=== PATIENT | male | born 1975 | race Caucasian/White ===

== ENCOUNTER 2016-08-04 00:33 | Emergency (ER) | payer OTHER ==
[~2016-08-04] VITALS: Ht 177.8 cm; Wt 113.4 kg
[~2016-08-04 00:33] MED LIST: AMOXICILLIN875 M1 PO; PERCOCET 5-3251 EACH PO; TYLENOL EXTRA500 M2 PO
--- NOTE | 2016-08-04 00:54 | ED CARDIAC/CP/PALPITATIONS ---
History of Present Illness General Chief Complaint: Chest Pain Stated Complaint: "PER PT CHEST PRESSURE & PAIN Source: patient, old records Exam Limitations: no limitations Vital Signs & Intake/Output Vital Signs & Intake/Output Vital Signs Date Time Temp Pulse Resp B/P B/P Pulse O2 O2 Flow FiO2 Mean Ox Delivery Rate 08/04 0244 96.4 52 18 143/78 08/04 0052 98.2 64 18 146/95 98 Room Air Allergies Coded Allergies: NSAIDS (Non-Steroidal Anti-Inflamma (R/T GASTYRIC BYPASS SX 07/23/15) cefaclor (From CECLOR) (ANAPHYLAXIS 07/23/15) Reconcile Medications Acetaminophen (Tylenol Extra Strength) 500 MG TABLET 2 TAB PO Q2H PRN PAIN ( Reported) Amoxicillin 875 MG TABLET 1 TAB PO BID dental caries Oxycodone HCl/Acetaminophen (Percocet 5-325 MG Tablet) 1 EACH TABLET 1-2 TAB PO Q6P PRN pain Triage Note: PT TO ED C/O L CHEST WALL PAIN THAT RADIATES UNDERNEATH LEFT BREAST. PT STATES S/S STARTED WITH INDIGESTION, HAD ACID REFLUX WITH RELIEVED FULLY WHEN TAKING TUMS. PT FATHER HAD A MASSIVE ME AT 47 WITH SIMILAR S/S. WANTED TO COME AND GET CHECKED OUT. PT STATES PAIN IS INTERMITTENT SINCE THIS AFTERNOON. Triage Nurses Notes Reviewed? yes Onset: Evening Duration: hour(s):, constant, continues in ED Timing: recent history Quality/Severity: moderate, agita Location: epigastric Radiation: substernal Activities at Onset: none Prior Chest Pain/Card Workup: no prior chest pain Modifying Factors: Improves With: antacids. Nitro Today/Relief: no nitro taken today Aspirin Today: no aspirin today Associated Symptoms: abdominal pain, heartburn, nausea/vomiting HPI: 6 hours prior to admission patient complains of indigestion with nausea improved with Tums associated with retching now radiating to left chest he denies fever chills diarrhea shortness of breath headache dysuria rash bleeding. Past History Travel History Traveled to [place] past 21 day No Medical History Any Pertinent Medical History? see below for history Respiratory: bronchitis Gastrointestinal: GASTRIC BYPASS SX Endocrine: diabetes Surgical History Surgical History: non-contributory Psychosocial History What is your primary language Guyanese Tobacco Use: Current Daily Use Daily Tobacco Use Amount/Type: => 5 Cigarettes daily Family History Hx Contributory? No Review of Systems Review of Systems Constitutional: Reports: no symptoms. EENTM: Reports: no symptoms. Respiratory: Reports: no symptoms. Cardiovascular: Reports: see HPI, chest pain. GI: Reports: see HPI, abdominal pain, nausea. Genitourinary: Reports: no symptoms. Musculoskeletal: Reports: no symptoms. Skin: Reports: no symptoms. Neurological/Psychological: Reports: no symptoms. Hematologic/Endocrine: Reports: no symptoms. Immunologic/Allergic: Reports: no symptoms. All Other Systems: Reviewed and Negative Physical Exam Physical Exam General Appearance: well developed/nourished, alert, awake, anxious, mild distress, obese Head: atraumatic, normal appearance Eyes: Bilateral: normal appearance, PERRL, EOMI. Ears, Nose, Throat: normal pharynx, normal ENT inspection Neck: normal inspection, supple, full range of motion, no midline tenderness Respiratory: normal breath sounds, chest non-tender, no respiratory distress, quiet respiration, lungs clear Cardiovascular: regular rate/rhythm, normal peripheral pulses, norml femoral pulses equa Peripheral Pulses: 4+ carotid (R), 4+ carotid (L) Gastrointestinal: normal bowel sounds, soft, non-tender, no organomegaly Back: normal inspection, normal range of motion, no vertebral tenderness Extremities: normal inspection, normal capillary refill, normal range of motion, no edema Neurologic/Psych: no motor/sensory deficits, awake, alert, oriented x 3, normal gait, normal mood/affect, dietary manager II-XII nml as tested Reflexes: 2+: bicep (R), bicep (L). Skin: intact, normal color, warm/dry Lymphatic: no anterior cervical rafal Core Measures ACS in differential dx? Yes ASA ordered for poss ACS? No-ACS ruled out Severe Sepsis Present: No Septic Shock Present: No Progress Differential Diagnosis: AMI, musculoskeletal pain, pancreatitis, pneumonia Plan of Care: Orders Procedure Date/time Status TROPONIN LEVEL 08/04 0052 Complete LIPASE 08/04 0052 Complete COMPREHENSIVE METABOLIC PANEL 08/04 0052 Complete CBC WITHOUT DIFFERENTIAL 08/04 005 Complete EKG 08/04 0037 Active Laboratory Tests 08/04/16 0100: Anion Gap 11, Estimated GFR > 60, BUN/Creatinine Ratio 12.2, Glucose 85, Calcium 9.1, Total Bilirubin 0.5, AST 16 L, ALT 33, Alkaline Phosphatase 60, Troponin I < 0.01, Total Protein 6.5, Albumin 3.8, Globulin 2.7, Albumin/Globulin Ratio 1.4 , Lipase 125, CBC w Diff NO MAN DIFF REQ, RBC 5.41, MCV 76.6 L, MCH 24.5 L, RDW 30.2 H, MPV 8.0, Gran % 53.1, Lymphocytes % 31.6, Monocytes % 7.7, Eosinophils % 6.7 H, Basophils % 0.9, Absolute Granulocytes 4.1, Absolute Lymphocytes 2.5, Absolute Monocytes 0.6, Absolute Eosinophils 0.5, Absolute Basophils 0.1, PUBS MCHC 32.1 L Diagnostic Imaging: Viewed by Me: Radiology Read, CT Scan. Discussed w/RAD: Radiology Read, CT Scan. Radiology Impression: Normal CTA of the chest. Previously seen mediastinal prominence corresponds to tortuous normal caliber vasculature and prominent fat within the upper mediastinum. CXR Impression: no infiltrates, widened mediastinum Initial ED EKG: normal axis, normal intervals, normal p-waves, normal QRS complex, normal sinus rhythm, no ST T wave changes Prior EKG: unchanged Rhythm Strip: normal sinus rhythm Departure Departure Time of Disposition: 507 Disposition: HOME OR SELF CARE Condition: Stable Clinical Impression Primary Impression: Chest pain syndrome Referrals: PATIENT HAS NO PRIMARY CARE DR (PCP/Family) Departure Forms: Customer Survey General Discharge Information Critical Care Note Critical Care Note Critical Care Time: non-applicable
[2016-08-04 01:10] LABS: ABSOLUTE BASOPHIL COUNT 0.1 /CUMM (0.0-0.2); ABSOLUTE EOSINOPHIL COUNT 0.5 /CUMM (0.0-0.7); ABSOLUTE GRANULOCYTE CT 4.1 /CUMM (1.4-6.5); ABSOLUTE LYMPH COUNT 2.5 /CUMM (1.2-3.4); ABSOLUTE MONOCYTE COUNT 0.6 /CUMM (0.10-0.60); BASOPHIL % 0.9 % (0.0-2.0); EOSINOPHIL % 6.7 % (0-5); GRANULOCYTE % 53.1 % (42.2-75.2); HEMATOCRIT 41.4 % (42-52); MEAN CORPUSCULAR HGB 24.5 PG (27.0-31.0); MEAN CORPUSCULAR HGB CONC 32.1 G/DL (33.0-37.0); MEAN CORPUSCULAR VOLUME 76.6 FL (80.0-94.0); PLATELET COUNT 265 /CUMM (130-400); RBC DISTRIBUTION WIDTH 30.2 % (11.5-14.5); RED BLOOD CELL CT 5.41 /CUMM (4.70-6.10); WHITE BLOOD CELL COUNT 7.8 /CUMM (4.8-10.8)
--- NOTE | 2016-08-04 01:17 | RADIOLOGY REPORT ---
EXAMINATION: XR PORTABLE CHEST CLINICAL INFORMATION: Chest pain. COMPARISON: Right shoulder radiographs March 06, 2013. TECHNIQUE: Portable frontal view of the chest was obtained. FINDINGS: Symmetric lung inflation. There is no focal consolidation, pleural effusion, or pneumothorax. Upper mediastinum is prominent in size and should be followed with a chest CT with contrast to exclude acute mediastinal pathology. There are no acute osseous findings. IMPRESSION: Upper mediastinum is prominent in size and should be followed with a chest CT with contrast to exclude acute mediastinal pathology. The lungs are clear.
--- NOTE | 2016-08-04 02:47 | CT SCAN REPORT ---
CTA OF THE CHEST, INDICATION: Widened mediastinum on chest x-ray x-ray to assess for mediastinal pathology/dissection. COMPARISON: Chest x-ray performed earlier today. TECHNIQUE: A multidetector CTA acquisition of the chest is obtained following the administration of 140 of Optiray 350 without complication. 3-D postprocessing including the acquisition of multiplanar MIP reformats were acquired at the technologist workstation and utilized for image interpretation. FINDINGS: The thoracic aorta is normal in caliber. There is no evidence of arterial dissection. There is no dense intramural hematoma on the noncontrast series. There are no central pulmonary emboli. There is no focal consolidation, pleural effusion, or pneumothorax. The heart is normal in size without evidence of a pericardial effusion. There are borderline enlarged lymph nodes within the anterior mediastinum in the right paratracheal region that are nonspecific. No significant soft tissue findings within the chest. There are postoperative changes along the distal esophagus and partially imaged stomach. Gallbladder surgically absent. Remainder of the partially imaged upper abdomen is unremarkable. No acute osseous abnormalities. IMPRESSION: Normal CTA of the chest. Previously seen mediastinal prominence corresponds to tortuous normal caliber vasculature and prominent fat within the upper mediastinum.
[2016-08-04 05:17] VITALS: BP 139/76
== END 2016-08-04 05:17 ==
LOC: ERH 00:33
PROVIDERS: Emergency Medicine
DX: R07.1 Chest pain on breathing (principal)
CPT/HCPCS: 93005; 93010; 96374; 96375; J2765

== ENCOUNTER 2017-08-04 02:00 | Inpatient (IN) | payer OTHER ==
[~2017-08-04] VITALS: Ht 170.2 cm; Wt 119.4 kg
--- NOTE | 2017-08-04 02:10 | ED DYSPNEA/ASTHMA COMPLAINT ---
See Addendum History of Present Illness General Chief Complaint: General Adult Stated Complaint: DIFF BREATHING ? CHEMICAL INGESTION Source: patient Exam Limitations: no limitations Vital Signs & Intake/Output Vital Signs & Intake/Output Vital Signs Date Time Temp Pulse Resp B/P B/P Pulse O2 O2 Flow FiO2 Mean Ox Delivery Rate 08/04 0749 98.0 68 18 123/68 95 Room Air 08/04 0420 98.4 68 18 159/90 96 Room Air 08/04 0231 98 08/04 0215 97 Room Air 08/04 0208 98.4 74 18 180/86 97 Room Air Allergies Coded Allergies: NSAIDS (Non-Steroidal Anti-Inflamma (R/T GASTYRIC BYPASS SX 07/23/15) cefaclor (From CECLOR) (ANAPHYLAXIS 07/23/15) Reconcile Medications Acetaminophen (Tylenol Extra Strength) 500 MG TABLET 2 TAB PO Q8 PRN PAIN ( Reported) Epinephrine (Epipen 2-Jax) 0.3 MG/0.3 ML AUTO.INJCT 1 INJ IM X1 PRN SEVERE ALLERGIC REACTION AND CALL 911 Hydroxyzine HCl (hydrOXYzine HCl) 50 MG TABLET 1 TAB PO TID PRN ALLERGIC REACTION Methylprednisolone. (Medrol) 4 MG TAB.DS.PK 1 DP PO AD allergic reaction 6 on day 1 then reduce by one tablet daily until gone Omeprazole 40 MG CAPSULE. 1 CAP PO DAILY GERD (Reported) Triage Nurses Notes Reviewed? yes Onset: Abrupt Duration: hour(s): Timing: recent history Severity: moderate Activities at Onset: none Prior Episodes/Possible Cause: no prior episodes HPI: 41 yo gentleman, h/o gastric bypass, presents with cough, dyspnea, and hives. He shares that he took a single dose packet of advil PM, and a few minutes later developed dyspnea, wheeze, and hives at approximately 1:20am. He notes that the tylenol PM was in the pocket of his shorts. His shorts had recently been washed by industrial strength communication electronic technician. "I think I ingested some pretty bad stuff." He notes also diffuse mid epigastric burning type dyscomfort. He notes that he has had asthma, "where I was almost intubated before." He is otherwise well. (Natalie CHESTER,Dexter Brewer) Past History Travel History Traveled to [place] past 21 day No Medical History Any Pertinent Medical History? see below for history Respiratory: bronchitis Gastrointestinal: GASTRIC BYPASS SX Endocrine: diabetes Surgical History Surgical History: non-contributory Psychosocial History What is your primary language Luxembourger Tobacco Use: Current Daily Use Daily Tobacco Use Amount/Type: => 5 Cigarettes daily ETOH Use: occasional use Illicit Drug Use: denies illicit drug use Family History Hx Contributory? No (Natalie CHESTER,Dexter Brewer) Review of Systems Review of Systems Constitutional: Reports: no symptoms. EENTM: Reports: no symptoms. Respiratory: Reports: no symptoms. Cardiovascular: Reports: no symptoms. GI: Reports: no symptoms. Genitourinary: Reports: no symptoms. Musculoskeletal: Reports: no symptoms. Skin: Reports: no symptoms. Neurological/Psychological: Reports: no symptoms. Hematologic/Endocrine: Reports: no symptoms. Immunologic/Allergic: Reports: no symptoms. All Other Systems: Reviewed and Negative (Natalie CHESTER,Dexter Brewer) Physical Exam Physical Exam General Appearance: well developed/nourished, moderate distress Head: atraumatic, normal appearance Eyes: Bilateral: normal appearance. Ears, Nose, Throat: normal pharynx, normal ENT inspection Neck: normal inspection, supple, full range of motion Respiratory: normal breath sounds, wheezing, respiratory distress Cardiovascular: regular rate/rhythm Gastrointestinal: normal bowel sounds, no organomegaly, mid epigastric tenderness to palpation. Extremities: normal inspection, normal capillary refill Neurologic/Psych: no motor/sensory deficits, awake, alert, oriented x 3, normal gait Skin: diffuse urticaria Core Measures ACS in differential dx? No CVA/TIA Diagnosis No Sepsis Present: No Sepsis Focused Exam Completed? No (Natalie CHESTER,Dexter Brewer) Progress Differential Diagnosis: asthma, bronchitis, allergic reaction vs other. Plan of Care: Orders Procedure Date/time Status Nothing by Mouth 08/04 D Active Clear Liquid Diet 08/[address] in observation 08/04 1135 Active ED Holding Orders 08/04 1135 Active Vital Signs 08/04 1135 Active Code Status 08/04 1135 Active Add-on Test (ER Only) 08/04 0933 Active CREATINE PHOSPHOKINASE 08/04 0914 Complete TROPONIN LEVEL 08/04 09 Complete LIPASE 08/04 09 Complete HEPATIC FUNCTION PANEL 08/04 09 Complete CBC WITHOUT DIFFERENTIAL 08/04 09 Complete BASIC METABOLIC PANEL 08/04 0900 Complete AMYLASE 08/04 0900 Complete EKG 08/04 899 Active Add-on Test (ER Only) 08/04 07 Active URINALYSIS 08/04 556 Complete ACETOMINOPHEN 08/04 429 Complete SALICYLATE 08/04 429 Complete TROPONIN LEVEL 08/04 214 Complete LIPASE 08/04 214 Complete HEPATIC FUNCTION PANEL 08/04 214 Complete CBC WITHOUT DIFFERENTIAL 08/04 214 Complete BASIC METABOLIC PANEL 08/04 214 Complete AMYLASE 08/04 214 Complete EKG 08/04 214 Active Current Medications Sig/Jordon Start time Last Medication Dose Stop Time Status Admin Diphenhydramine HCl 50 MG ONCE ONE 08/04 414 CAN (Benadryl) 08/05 415 Acetaminophen 0 .STK-MED ONE 08/04 412 CAN (Ofirmev) Laboratory Tests 08/04/17926: Urinalysis HEAVY H, Urine Color BROWN H, Urine Clarity CLDY H, Urine pH 7.0, Ur Specific Superior 1.020, Urine Protein >=300 H, Urine Ketones TRACE H, Urine Nitrite POS H, Urine Bilirubin NEG@ICTO, Urine Urobilinogen 2.0 H, Ur Leukocyte Esterase TRACE H, Ur Microscopic SEDIMENT EXAMINED, Urine WBC 1-3 H, Ur Epithelial Cells MOD H, Urine Bacteria RARE H, Granular Casts FEW H, Urine Mucus FEW, Micro UA Comment MORE INFO: H, Urine Hemoglobin LARGE H, Urine Glucose 100 H 08/04/17913: Anion Gap 11, Estimated GFR 48 L, BUN/Creatinine Ratio 15.0, Glucose 154 H, Calcium 7.7 L, Total Bilirubin 2.0 H, Direct Bilirubin 0.6 H, AST 82 H, ALT 42, Alkaline Phosphatase 42, Creatine Kinase 96, Troponin I < 0.01, Total Protein 5.8 L, Albumin 3.3 L, Amylase 106, Lipase 522 H, CBC w Diff NO MAN DIFF REQ, RBC 4.30 L, MCV 91.7, MCH 31.0, MCHC 33.8, RDW 13.5, MPV 7.9, Gran % 93.1 H, Lymphocytes % 4.2 L, Monocytes % 2.7, Eosinophils % 0, Basophils % 0, Absolute Granulocytes 13.8 H, Absolute Lymphocytes 0.6 L, Absolute Monocytes 0.4, Absolute Eosinophils 0, Absolute Basophils 0 08/04/17429: Anion Gap 11, Estimated GFR > 60, BUN/Creatinine Ratio 16.7, Glucose 150 H, Calcium 8.5, Total Bilirubin 4.2 H, Direct Bilirubin 1.6 H, AST 86 H, ALT 38, Alkaline Phosphatase 50, Troponin I 0.01, Total Protein 6.5, Albumin 3.8, Amylase 176 H, Lipase 1577 H, Salicylates < 1.0, Acetaminophen < 10.0 L 08/04/17301: CBC w Diff NO MAN DIFF REQ, RBC 4.94, MCV 92.3, MCH 31.1 H, MCHC 33.7, RDW 14.1 , MPV 8.0, Gran % 65.0, Lymphocytes % 28.7, Monocytes % 3.1, Eosinophils % 3.1, Basophils % 0.1, Absolute Granulocytes 7.8 H, Absolute Lymphocytes 3.4, Absolute Monocytes 0.4, Absolute Eosinophils 0.4, Absolute Basophils 0 Diagnostic Imaging: Viewed by Me: Radiology Read, CT Scan. Discussed w/RAD: Radiology Read, CT Scan. Radiology Impression: PATIENT: MARTIN FOX JR PRESENT AGE: 41 PATIENT ACCOUNT NO: [id number] : 74 LOCATION: [facility] ORDERING PHYSICIAN: Dexter Estrada MD SERVICE DATE: 08/04/17 EXAM TYPE: RAD - XRY-PORTABLE CHEST XRAY EXAMINATION: XR PORTABLE CHEST CLINICAL INFORMATION: Dyspnea. COMPARISON: None TECHNIQUE: Portable frontal view of the chest was obtained. 2:27 AM FINDINGS: No significant abnormality is noted involving the heart, lungs, mediastinum, bony thorax or soft tissues. IMPRESSION : Unremarkable examination. DICTATED BY: David Zamora MD DATE/TIME DICTATED:256 MEAT PROCESS WORKER:GEENA DATE/TIME TRANSCRIBED:08/04/17256 CONFIDENTIAL, DO NOT COPY WITHOUT APPROPRIATE AUTHORIZATION. <Electronically signed in Other Vendor System> SIGNED BY: David Zamora MD 08/04/17300, PATIENT: MARTIN FOX JR PRESENT AGE: 41 PATIENT ACCOUNT NO: [id number] : 74 LOCATION: ER ORDERING PHYSICIAN: Dexter Estrada MD SERVICE DATE: 08/04/17 EXAM TYPE: CAT - CT ABD & PELVIS W/ O IV CONTRAS EXAMINATION: CT ABDOMEN AND PELVIS WITHOUT CONTRAST CLINICAL INFORMATION: Mid epigastric pain. COMPARISON: None TECHNIQUE: Multidetector volumetric imaging was performed from the superior aspect of the liver through the pubic symphysis. Sagittal and coronal reformatted images were obtained on the technologist's workstation. DLP: 1517.87 mGy-cm FINDINGS: LUNG BASES: The visualized lung bases are unremarkable. LIVER, GALLBLADDER, AND BILIARY TREE: The liver is normal in size, shape, and attenuation. No focal hepatic lesion or biliary ductal dilatation is present. Status post cholecystectomy. No bile duct dilatation. PANCREAS: Unremarkable. SPLEEN: Unremarkable. ADRENAL GLANDS: Unremarkable. KIDNEYS AND URETERS: The kidneys are normal in size, shape, and attenuation. No hydronephrosis, hydroureter, or calculi seen. No perinephric stranding. BLADDER: Unremarkable. GASTROINTESTINAL TRACT: Small hiatal hernia. Status post gastric bypass surgery with surgical sutures of the stomach and proximal small bowel loops. No abnormally dilated bowel. No bowel obstruction. No bowel wall thickening or edema. The appendix is normal. Scattered stool in the colon. There are scattered diverticula of the left colon and sigmoid but no diverticulitis. ABDOMINAL WALL: Small fat-containing umbilical hernia. LYMPH NODES: Normal. VASCULAR: Unremarkable. PELVIC VISCERA: Unremarkable. OSSEOUS STRUCTURES: Unremarkable. IMPRESSION: No acute abnormality CT scan abdomen and pelvis. DICTATED BY: David Zamora MD DATE/TIME DICTATED:08/04/17335 MEAT PROCESS WORKER:GEENA DATE/TIME TRANSCRIBED:08/04/17335 CONFIDENTIAL, DO NOT COPY WITHOUT APPROPRIATE AUTHORIZATION. <Electronically signed in Other Vendor System> SIGNED BY: David Zamora MD 08/04/17 034 Initial ED EKG: nsr, no acute changes Hand-Off Endorsed To: Monster Ramirez DO Endorsed Time: 0700 Pending: other (clinical condition) (Natalie CHESTER,Dexter Brewer) Departure Departure Disposition: HOME OR SELF CARE Condition: Stable Clinical Impression Primary Impression: Allergic reaction Secondary Impressions: Abdominal pain, Pancreatitis Referrals: Patient Has No Primary Care Dr Departure Forms: Customer Survey General Discharge Information Prescriptions: Current Visit Scripts Methylprednisolone. (Medrol) 1 DP PO AD #1 DP 6 on day 1 then reduce by one tablet daily until gone Hydroxyzine HCl (hydrOXYzine HCl) 1 TAB PO TID PRN ALLERGIC REACTION #60 TAB Ref 1 Epinephrine (Epipen 2-Jax) 1 INJ IM X1 PRN SEVERE ALLERGIC REACTION #1 KIT AND CALL 911 Comments 08/04/17, 4:08AM....discussed with poison control... .the detergent in the washing machine appears generally safe. 08/04/17, 5:56am... discussed at length with patient... he reports feeling better... elevated lipase noted, ct scan benign... pt does not wish to be admitted... he would prefer to rest in ED for some more time... will give 2 liter fluid bolus, then repeat labs and reassess. Pt to be signed out to dr. ramirez, 7am. (Natalie CHESTER,Dexter Brewer) Observation Note Spoke With: Elijah Bonilla MD Physician Advisor Notified: MONSTER RAMIREZ DO Place Patient In: Non-ED OBS Care Area Rationale for Observation: My rational for observation is as follows [IV fluids, repeat bilirubin and lipase, GI consultation]. (Monster Ramirez DO) Critical Care Note Critical Care Note Critical Care Time: non-applicable (Natalie CHESTER,Dexter Brewer) 08/04/17, 5:56am... discussed at length with patient... he reports feeling better... elevated lipase noted, ct scan benign... pt does not wish to be admitted... he would prefer to rest in ED for some more time... will give 2 liter fluid bolus, then repeat labs and reassess. Pt to be signed out to dr. ramirez, 7am. Critical Care Note Critical Care Note Critical Care Time: non-applicable
--- NOTE | 2017-08-04 03:01 | RADIOLOGY REPORT ---
EXAMINATION: XR PORTABLE CHEST CLINICAL INFORMATION: Dyspnea. COMPARISON: None TECHNIQUE: Portable frontal view of the chest was obtained. 2:27 AM FINDINGS: No significant abnormality is noted involving the heart, lungs, mediastinum, bony thorax or soft tissues. IMPRESSION: Unremarkable examination.
[2017-08-04 03:39] LABS: ABSOLUTE BASOPHIL COUNT 0 /CUMM (0.0-0.2); ABSOLUTE EOSINOPHIL COUNT 0.4 /CUMM (0.0-0.7); ABSOLUTE GRANULOCYTE CT 7.8 /CUMM (1.4-6.5); ABSOLUTE LYMPH COUNT 3.4 /CUMM (1.2-3.4); ABSOLUTE MONOCYTE COUNT 0.4 /CUMM (0.10-0.60); BASOPHIL % 0.1 % (0.0-2.0); EOSINOPHIL % 3.1 % (0-5); HEMATOCRIT 45.6 % (42-52); MEAN CORPUSCULAR HGB 31.1 PG (27.0-31.0); MEAN CORPUSCULAR HGB CONC 33.7 G/DL (33.0-37.0); MEAN CORPUSCULAR VOLUME 92.3 FL (80.0-94.0); PLATELET COUNT 245 /CUMM (130-400); RBC DISTRIBUTION WIDTH 14.1 % (11.5-14.5); RED BLOOD CELL CT 4.94 /CUMM (4.70-6.10)
--- NOTE | 2017-08-04 03:43 | CT SCAN REPORT ---
EXAMINATION: CT ABDOMEN AND PELVIS WITHOUT CONTRAST CLINICAL INFORMATION: Mid epigastric pain. COMPARISON: None TECHNIQUE: Multidetector volumetric imaging was performed from the superior aspect of the liver through the pubic symphysis. Sagittal and coronal reformatted images were obtained on the technologist's workstation. DLP: 1517.87 mGy-cm FINDINGS: LUNG BASES: The visualized lung bases are unremarkable. LIVER, GALLBLADDER, AND BILIARY TREE: The liver is normal in size, shape, and attenuation. No focal hepatic lesion or biliary ductal dilatation is present. Status post cholecystectomy. No bile duct dilatation. PANCREAS: Unremarkable. SPLEEN: Unremarkable. ADRENAL GLANDS: Unremarkable. KIDNEYS AND URETERS: The kidneys are normal in size, shape, and attenuation. No hydronephrosis, hydroureter, or calculi seen. No perinephric stranding. BLADDER: Unremarkable. GASTROINTESTINAL TRACT: Small hiatal hernia. Status post gastric bypass surgery with surgical sutures of the stomach and proximal small bowel loops. No abnormally dilated bowel. No bowel obstruction. No bowel wall thickening or edema. The appendix is normal. Scattered stool in the colon. There are scattered diverticula of the left colon and sigmoid but no diverticulitis. ABDOMINAL WALL: Small fat-containing umbilical hernia. LYMPH NODES: Normal. VASCULAR: Unremarkable. PELVIC VISCERA: Unremarkable. OSSEOUS STRUCTURES: Unremarkable. IMPRESSION: No acute abnormality CT scan abdomen and pelvis.
[2017-08-04] MEDS ORDERED: MEDROL4 M2 PO (04:02)
[2017-08-04] MEDS ORDERED: HYDROXYZINE HCL50 M2 PO (04:02)
[2017-08-04] MEDS ORDERED: OMEPRAZOLE40 M1 PO (04:58)
[2017-08-04] MEDS ORDERED: EPIPEN 2-P0.3 MG/0.3 IM (05:00)
[2017-08-04 09:29] LABS: ABSOLUTE BASOPHIL COUNT 0 /CUMM (0.0-0.2); ABSOLUTE EOSINOPHIL COUNT 0 /CUMM (0.0-0.7); ABSOLUTE MONOCYTE COUNT 0.4 /CUMM (0.10-0.60); BASOPHIL % 0 % (0.0-2.0); EOSINOPHIL % 0 % (0-5)
[2017-08-04 09:42] LABS: ABSOLUTE GRANULOCYTE CT 13.8 /CUMM (1.4-6.5); ABSOLUTE LYMPH COUNT 0.6 /CUMM (1.2-3.4); MEAN CORPUSCULAR HGB CONC 33.8 G/DL (33.0-37.0); MEAN CORPUSCULAR VOLUME 91.7 FL (80.0-94.0); MEAN PLATELET VOLUME 7.9 FL (7.4-10.4); PLATELET COUNT 212 /CUMM (130-400); RBC DISTRIBUTION WIDTH 13.5 % (11.5-14.5); WHITE BLOOD CELL COUNT 14.9 /CUMM (4.8-10.8)
[2017-08-04 09:44] LABS: HEMATOCRIT 39.4 % (42-52)
[2017-08-04 10:12] LABS: GRANULOCYTE % 93.1 % (42.2-75.2)
[2017-08-04] MEDS ORDERED: IRON325 M3 PO (12:03)
[2017-08-04] MEDS ORDERED: CALCIUM CITRAT250 M1 PO (12:04)
--- NOTE | 2017-08-04 12:04 | History & Physical ---
[facility] 08/04/17 1203: General Information and HPI MD Statement: I have seen and personally examined MARTIN FOX Delmy MCGUIRE and documented this H&P. The patient is a 41 year old M who presented with a patient stated chief complaint of [ingestion of crushed advil]. Source of Information: patient Exam Limitations: no limitations History of Present Illness: Patient is a 41-year-old male past medical history of cholecystectomy, 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 He was completely all right a day before. He usually takes Advil at the nighttime to help him with sleeping. He left the bottle of Advil and his scrubs and washed them in fire department washing machine with chemical detregent contains of propylene glycol plus alcohol.After his work he was feeling a little tired so he ate crushed pills around 1:00 and within 15 minutes he started having severe shortness of breath and urticaria. He called poison control who advised him to go to emergency department. He later started having nausea, pain in the abdomen started from epigastrium to the lower belly. He was also complaining of headache. He was complaining of red discoloration of his urine. 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 He did get exposed to smoke and chemicals at his work. Surgical history - hx of gastric bipass, cholecystectomy, tonsillectomy PCP -Dr. Felton Family history -father of heart attack at the age of 65 and had CABG at the age of 45. Mother -does not know Allergies/Medications Allergies: Coded Allergies: NSAIDS (Non-Steroidal Anti-Inflamma (R/T GASTYRIC BYPASS SX 07/23/15) cefaclor (From CECLOR) (ANAPHYLAXIS 07/23/15) Past History Travel History Traveled to [place] past 21 day No Medical History Respiratory: bronchitis Gastrointestinal: GASTRIC BYPASS SX Endocrine: diabetes Surgical History Surgical History: non-contributory Past Family/Social History Psychosocial History ETOH Use: occasional use Illicit Drug Use: denies illicit drug use Exam & Diagnostic Data Last 24 Hrs of Vital Signs/I&O Vital Signs Date Time Temp Pulse Resp B/P B/P Pulse O2 O2 Flow FiO2 Mean Ox Delivery Rate 08/04 1325 96.2 59 18 122/77 97 08/04 1141 97.6 60 18 130/83 97 Room Air 08/04 0749 98.0 68 18 123/68 95 Room Air 08/04 0420 98.4 68 18 159/90 96 Room Air 08/04 0231 98 08/04 0215 97 Room Air 08/04 0208 98.4 74 18 180/86 97 Room Air Intake & Output 08/04 1600 08/04 0800 08/04 0000 Intake Total 20 Output Total Balance 20 Intake, Oral 20 Patient 119.38 kg 113.398 kg Weight Weight Bed scale Reported by Patient Measurement Method Physical Exam General Appearance Alert, Oriented X3, Cooperative, No Acute Distress Skin residual Assessment/Plan Assessment: Patient is a 41-year-old male past medical history of cholecystectomy, 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 He was completely all right a day before. He usually takes Advil at the nighttime to help him with sleeping. He left the bottle of Advil and his scrubs and washed them in fire department washing machine with chemical detregent contains of propylene glycol plus alcohol.After his work he was feeling a little tired so he ate crushed pills around 1:00 and within 15 minutes he started having severe shortness of breath and urticaria. He called poison control who advised him to go to emergency department. He later started having nausea, pain in the abdomen started from epigastrium to the lower belly. Over night team talk to the poison control who told that his detergent is water- soluble so can be treated symptomatically. The label over the detachment was showing having propylene glycol plus alcohol. He was given nebulization, methylprednisolone, IV fluid. ED course - Vital signs -temperature 98.4, pulse 72, respiratory 18, blood pressure 188/86, SPO2 97% on room air. EKG showed -normal sinus rhythm, heart rate 59, T-wave inversion in went into Blood workup -WBC 12.0, hemoglobin 15.4, platelet count 245, granulocytes 65, serum sodium 137, serum potassium 3.3, chloride 104, carbon dioxide 22, anion gap 11, BUN 20, creatinine 1.2, glucose 150, lactic acid 1.2, calcium 8.5,total bilirubin 4.2, direct bilirubin 1.6, AST 86, ALT 38, alkaline phosphatase 50, troponin less than 0.01, albumin 3.8, amylase 176, lipase 1577, U tox shows acetaminophen level less than 10, salicylate less than 1, serum alcohol level less than 10, acetone level was negative. CT abdomen pelvis and chest x-ray -did not show any acute intra-abdominal and chest abnormality. Assessment and plan - Patient is a 41-year-old male presented with chief complaints of ingestion of IV mixed with the chemical.He started having difficulty in the breathing and generalized articular probably secondary due to anaphylaxis to the drug. He was complaining of pain in the epigastrium, which was radiating to lower down. Lab were showing evidence of hepatitis, acute kidney injury, and pancreatitis. His urine was showing evidence of hemolysis. On the left workup cannot be explained by when component. It is a possibility that he had chemical inhalation along with Advil leading to bronchospasm along with hepatitis. Propylene glycol ingestion v/s analgesic nephropathy - * Admitted to general medicine floor * We start on IV fluids 100 cc/h * Strict intake output charting * Inj pantoprazole 40 mg IV twice daily * Stool for occult blood * GI consult * Repeat urinalysis tomorrow * Regular monitoring of CBC, BMP, lactic acid, calcium CODE STATUS-full code Diet-n.p.o. for possible upper GI endoscopy, DVT prophylaxis-PAU S, avoid heparin as patient is having hematuria As Ranked By This Provider Problem List: 1. Pancreatitis 2. Abdominal pain Core Measures/Misc (11/26) Acute Coronary Syndrome ACS Diagnosis: No Congestive Heart Failure Congestive Heart Failure Diagnosis No Cerebrovascular Accident CVA/TIA Diagnosis: No VTE (View Protocol) VTE Risk Factors Age>40 No Mechanical VTE Prophylaxis d/t N/A MechProphylax Ordered No VTE Pharm Prophylaxis d/t Bleeding (Active) (urine has blood) Sepsis (View protocol) Sepsis Present: No If YES complete Sepsis Event Note If YES complete Sepsis Event Note Elijah Bonilla MD 08/09/17 1440: General Information and HPI Allergies/Medications Home Med list Acetaminophen (Tylenol Extra Strength) 500 MG TABLET 2 TAB PO Q8 PRN PAIN ( Reported) Calcium Citrate (Unknown Strength) TABLET (Unknown Dose) PO DAILY SUPPLEMENT (Reported) Docusate Sodium (Colace) 100 MG CAPSULE 1 CAP PO DAILY STOOL SOFTENER ( Reported) Epinephrine (Epipen 2-Jax) 0.3 MG/0.3 ML AUTO.INJCT 1 INJ IM X1 PRN SEVERE ALLERGIC REACTION AND CALL 911 Ferrous Sulfate (IRON) 325 MG (65 MG IRON) TABLET 1 TAB PO BID ANEMIA ( Reported) Lactulose 20 GRAM/30 ML SOLUTION 30 GM PO BID PRN constipation Lidocaine (Lidoderm) 5 % ADH..PATCH 1 PAT TOP Q24H back pain Omeprazole 40 MG CAPSULE.DR 1 CAP PO DAILY GERD (Reported) Prednisone 20 MG TABLET 80 MG PO DAILY AIN Sevelamer Carbonate (Renvela) 800 MG TABLET 800 MG PO TID CKD Sodium Bicarbonate 325 MG TABLET 1,300 MG PO BID CKD Core Measures/Misc (11/26) Sepsis (View protocol) If YES complete Sepsis Event Note If YES complete Sepsis Event Note
[2017-08-04] MEDS ORDERED: VITAMIN B-121000 MC3 PO (12:05)
[2017-08-04] MEDS ORDERED: COLACE100 M1 PO (12:05)
[2017-08-04] MEDS ORDERED: MULTIVITAMINS1 EAC9 PO (12:05)
[2017-08-04] MEDS ORDERED: VITAMIN D1000 UNIT PO (12:05)
[2017-08-04 14:44] VITALS: BP 122/80
--- NOTE | 2017-08-04 14:54 | PN- Att Addend ---
Attending Addendum Attending Brief Note 41M PMH gastric bypass 2003, h/o cholecystectomy, presents with epigastric pain, urticaria, and vomiting. Patient was in his usual state of health when last night he took an Advil PM. He notes that he left the bottle of Advil PM in his pants and then washed them in the fire department washing machine with industrial level detergents, and took the pill after they had been through the wash. Last night he developed diffuse urticaria and wheezing, called his PCP, and was told to take 50mg of Benadryl and come to the ED, which he did. He developed epigastric pain, nausea, and vomiting as well. His vomiting subsided, though he still has mild nausea and 7/10 epigastric pain. Urticaria is present on his arms, legs, and trunk, though patient reports it is improved. His labs are significant for elevated bilirubin, elevated LFTs, elevated lipase. He was given Protonix, Pepcid, Solumedrol 125mg, Benadryl, and 6 rounds of Albuterol in the ER. He is no longer wheezing but has abdominal tenderness. 1. Anaphylaxis 2. Acute pancreatitis 3. RHONDA 4. Urticaria Plan - Admit to general medicine - Continue IV hydration - Morphine 4mg q3h PRN - Trend LFTs and renal function - GI consult - Prednisone 20mg daily x 3 days - NPO for now, tomorrow advance diet as tolerated - DVT PPx
--- NOTE | 2017-08-04 17:15 | Cons- Gastroenterology ---
General Information and HPI Consulting Request Date of Consult: 08/04/17 Requested By: Elijah Bonilla MD Reason for Consult: 1. Abdominal pain 2. Elevated amylase and lipase 3. Rule out pancreatitis Source of Information: patient, electronic medical record Exam Limitations: no limitations History of Present Illness: Mr. Fernandez is a 41 year old male with a past medical history of gastric bypass in 2003. He has also had a, h/o cholecystectomy many years ago. He reports that he had acute onset of epigastric pain, urticaria, and vomiting after taking Advil PM. He had left the bottle of Advil PM in his pants and then washed them in the fire department washing machine with industrial strength detergents, and took the pill after they had been through the wash. He called his PCP after he developed diffuse urticaria which was accompanied by shortness of breath and wheezing, and was told to take 50mg of Benadryl and come to the ED. Upon arrival to the ED he also complained of epigastric pain, nausea, and vomiting. His vomiting has subsided, though he still has mild nausea and 7/10 epigastric pain. Urticaria is present on his arms, legs, and trunk, though patient reports it is improved. His labs are significant for elevated bilirubin which is mostly indirect, elevated LFTs, elevated lipase. He was given Protonix, Pepcid, Solumedrol 125mg , Benadryl, and 6 rounds of Albuterol in the ED. He is no longer wheezing but has abdominal tenderness. He had a CT Scan of the abdomen and pelvis that showed the following: FINDINGS: LUNG BASES: The visualized lung bases are unremarkable. LIVER, GALLBLADDER, AND BILIARY TREE: The liver is normal in size, shape, and attenuation. No focal hepatic lesion or biliary ductal dilatation is present. Status post cholecystectomy. No bile duct dilatation. PANCREAS: Unremarkable. SPLEEN: Unremarkable. ADRENAL GLANDS: Unremarkable. KIDNEYS AND URETERS: The kidneys are normal in size, shape, and attenuation. No hydronephrosis, hydroureter, or calculi seen. No perinephric stranding. BLADDER: Unremarkable. GASTROINTESTINAL TRACT: Small hiatal hernia. Status post gastric bypass surgery with surgical sutures of the stomach and proximal small bowel loops. No abnormally dilated bowel. No bowel obstruction. No bowel wall thickening or edema. The appendix is normal. Scattered stool in the colon. There are scattered diverticula of the left colon and sigmoid but no diverticulitis. ABDOMINAL WALL: Small fat-containing umbilical hernia. LYMPH NODES: Normal. VASCULAR: Unremarkable. PELVIC VISCERA: Unremarkable. OSSEOUS STRUCTURES: Unremarkable. IMPRESSION: No acute abnormality CT scan abdomen and pelvis. On admission he had an amylase/lipase of 176/1577 which 8 hours later was 106/ 522. His alk phos was 65 which dropped to 42, and AST/ALT was 86/38 dropping to 82/42. Total Bili/Direct Bili was 4.2/1.6 dropping to 2.0/0.6. His WBC however increased to 14.9 with an H/H of 13.3/39.4. Allergies/Medications Allergies: Coded Allergies: NSAIDS (Non-Steroidal Anti-Inflamma (R/T GASTYRIC BYPASS SX 07/23/15) cefaclor (From CECLOR) (ANAPHYLAXIS 07/23/15) Home Med List: Acetaminophen (Tylenol Extra Strength) 500 MG TABLET 2 TAB PO Q8 PRN PAIN ( Reported) Calcium Citrate (Unknown Strength) TABLET (Unknown Dose) PO DAILY SUPPLEMENT (Reported) Cholecalciferol (Vitamin D3) (Vitamin D) (Unknown Strength) TABLET (Unknown Dose) PO DAILY SUPPLEMENT (Reported) Cyanocobalamin (Vitamin B-12) (Unknown Strength) TABLET (Unknown Dose) PO 2XW SUPPLEMENT (Reported) Docusate Sodium (Colace) 100 MG CAPSULE 1 CAP PO DAILY STOOL SOFTENER ( Reported) Epinephrine (Epipen 2-Jax) 0.3 MG/0.3 ML AUTO.INJCT 1 INJ IM X1 PRN SEVERE ALLERGIC REACTION AND CALL 911 Ferrous Sulfate (IRON) 325 MG (65 MG IRON) TABLET 1 TAB PO BID ANEMIA ( Reported) Hydroxyzine HCl (hydrOXYzine HCl) 50 MG TABLET 1 TAB PO TID PRN ALLERGIC REACTION Methylprednisolone. (Medrol) 4 MG TAB.DS.PK 1 DP PO AD allergic reaction 6 on day 1 then reduce by one tablet daily until gone Multiple Vitamin (Multivitamins) 1 EACH TABLET 1 TAB PO DAILY SUPPLEMENT ( Reported) Omeprazole 40 MG CAPSULE.DR 1 CAP PO DAILY GERD (Reported) Current Medications: Current Medications Sig/Jordon Start time Last Medication Dose Route Stop Time Status Admin Acetaminophen 1,000 MG ONCE ONE 08/04 8791 DC N/A 1 UNIT IV 08/04 428 Acetaminophen 0 .STK-MED ONE 08/04 0413 CAN IV Albuterol Sulfate 3 ML ONCE ONE 08/04 0215 DC 08/04 INH 08/04 0216 0221 Albuterol Sulfate 3 ML ONCE ONE 08/04 0215 DC 08/04 INH 08/04 0216 0221 Albuterol Sulfate 3 ML ONCE ONE 08/04 0215 DC 08/04 INH 08/04 0216 0221 Albuterol Sulfate 3 ML ONCE ONE 08/04 0215 DC 08/04 INH 08/04 0216 0221 Albuterol Sulfate 3 ML ONCE ONE 08/04 0215 DC 08/04 INH 08/04 0216 0221 Albuterol Sulfate 3 ML ONCE ONE 08/04 0215 DC 08/04 INH 08/04 0216 0221 Diphenhydramine HCl 50 MG ONCE ONE 08/04 0415 CAN IV 08/04 0416 Diphenhydramine HCl 25 MG ONCE ONE 08/04 0415 DC 08/04 IV 08/04 0416 0416 Diphenhydramine HCl 0 .STK-MED ONE 08/04 0413 DC .ROUTE Diphenhydramine HCl 0 .STK-MED ONE 08/04 0227 DC .ROUTE Diphenhydramine HCl 50 MG ONCE ONE 08/04 0215 DC 08/04 IV 08/04 0216 0225 Enoxaparin Sodium 0 .STK-MED ONE 08/04 1229 DC SC Enoxaparin Sodium 40 MG DAILY 08/04 1202 DC SC Famotidine 0 .STK-MED ONE 08/04 0228 DC IV Famotidine 20 MG ONCE ONE 08/04 0215 DC 08/04 IV 08/04 0216 0225 Ipratropium Rex 2.5 ML ONCE ONE 08/04 0215 DC 08/04 INH 08/04 0216 0221 Methylprednisolone 0 .STK-MED ONE 08/04 0229 DC .ROUTE Methylprednisolone 125 MG ONCE ONE 08/04 0215 DC 08/04 IV 08/04 0216 0225 Morphine Sulfate 2 MG Q4P PRN 08/04 1500 AC 08/04 IV 1700 Morphine Sulfate 0 .STK-MED ONE 08/04 1229 DC .ROUTE Morphine Sulfate 4 MG ONCE ONE 08/04 1200 DC 08/04 IV 08/04 1201 1234 Ondansetron HCl 0 .STK-MED ONE 08/04 0236 DC .ROUTE Ondansetron HCl 4 MG ONCE ONE 08/04 0230 DC 08/04 IV 08/04 0231 0232 Pantoprazole Sodium 0 .STK-MED ONE 08/04 0556 DC IV Pantoprazole Sodium 40 MG ONCE ONE 08/04 0530 DC 08/04 IV 08/04 0531 0555 Sodium Chloride 1,000 ML Q20H 08/04 1215 AC 08/04 IV 1234 Sodium Chloride 1,000 ML BOLUS ONE 08/04 0600 DC 08/04 IV 08/04 0659 0555 Sodium Chloride 1,000 ML BOLUS ONE 08/04 0600 DC 08/04 IV 08/04 0659 0756 Sodium Chloride 1,000 ML BOLUS ONE 08/04 0415 DC 08/04 IV 08/04 0514 0416 Past History Travel History Traveled to [place] past 21 day No Medical History Blood Transfusion Hx: No Neurological: NONE EENT: NONE Cardiovascular: NONE Respiratory: bronchitis Gastrointestinal: GASTRIC BYPASS SX Hepatic: NONE Renal: NONE Musculoskeletal: NONE Psychiatric: NONE Endocrine: diabetes Blood Disorders: NONE Cancer(s): NONE CITRIX LEAD/Reproductive: NONE Surgical History Surgical History: non-contributory Psychosocial History Where Do You Live? Home Services at Home: None Smoking Status: Current Everyday Smoker ETOH Use: occasional use Illicit Drug Use: denies illicit drug use Exam & Diagnostic Data Vital Signs and I&O Vital Signs Date Time Temp Pulse Resp B/P B/P Pulse O2 O2 Flow FiO2 Mean Ox Delivery Rate 08/04 1444 98.7 57 20 122/80 98 Room Air 08/04 1325 96.2 59 18 122/77 97 08/04 1141 97.6 60 18 130/83 97 Room Air 08/04 0749 98.0 68 18 123/68 95 Room Air 08/04 0420 98.4 68 18 159/90 96 Room Air 08/04 0231 98 08/04 0215 97 Room Air 08/04 0208 98.4 74 18 180/86 97 Room Air Intake & Output 08/04 1600 08/04 0400 08/03 1600 08/03 0400 08/02 1600 08/02 0400 Intake Total 20 Output Total Balance 20 Intake, Oral 20 Patient 263 lb 250 lb Weight Weight Bed scale Reported by Patient Measurement Method Physical Exam General Appearance: well developed/nourished, no apparent distress, alert, awake , comfortable Head: atraumatic, normal appearance Eyes: Bilateral: normal appearance. Ears, Nose, Throat: normal pharynx, hearing grossly normal Neck: normal inspection, supple, full range of motion Respiratory: normal breath sounds, lungs clear Cardiovascular: regular rate/rhythm, normal S1 and S2, with no murmur or gallop. Gastrointestinal: normal bowel sounds, soft, non-tender, no organomegaly, no guarding or rebound Neurologic/Psych: awake, alert, oriented x 3 Cranial Nerves: cranial nerves II through XII are grossly intact Skin: intact, warm/dry, hyperpigmented areas where patient had had urticarial lesions Results Pertinent Lab Results: Laboratory Tests 08/04 08/04 08/04 08/04 1515 1515 1205 0927 Chemistry Sodium (137 - 145 mmol/L) 135 L Potassium (3.5 - 5.1 mmol/L) 4.6 Chloride (98 - 107 mmol/L) 104 Carbon Dioxide (22 - 30 mmol/L) 20 L Anion Gap (5 - 16) 113 H BUN (9 - 20 mg/dL) 29 H Creatinine (0.7 - 1.2 mg/dL) 2.4 H Estimated GFR (>60 ml/min) 30 L BUN/Creatinine Ratio (7 - 25 %) 12.1 Serum Osmolality (285 - 295 MOSM/KG) Cancelled 293 Toxicology Methadone Screen Cancelled Barbiturate Screen Cancelled Ur Phencyclidine Scrn Cancelled Amphetamines Screen Cancelled U Benzodiazepines Scrn Cancelled Urine Cocaine Screen Cancelled Urine Cannabis Screen Cancelled Urines Urine Osmolality (300 - 1000 MOSM/KG) 292 L 08/04 08/04 0927 0914 Chemistry Sodium (137 - 145 mmol/L) 138 Potassium (3.5 - 5.1 mmol/L) 3.8 Chloride (98 - 107 mmol/L) 107 Carbon Dioxide (22 - 30 mmol/L) 20 L Anion Gap (5 - 16) 11 BUN (9 - 20 mg/dL) 24 H Creatinine (0.7 - 1.2 mg/dL) 1.6 H Estimated GFR (>60 ml/min) 48 L BUN/Creatinine Ratio (7 - 25 %) 15.0 Glucose (65 - 99 mg/dL) 154 H Lactic Acid (0.7 - 2.1 mmol/L) 1.2 Calcium (8.4 - 10.2 mg/dL) 7.7 L Total Bilirubin (0.2 - 1.3 mg/dL) 2.0 H Direct Bilirubin (< 0.4 mg/dL) 0.6 H AST (17 - 59 U/L) 82 H ALT (21 - 72 U/L) 42 Alkaline Phosphatase (< 127 U/L) 42 Creatine Kinase (55 - 170 U/L) 96 Troponin I (<0.11 ng/ml) < 0.01 Total Protein (6.3 - 8.2 g/dL) 5.8 L Albumin (3.5 - 5.0 g/dL) 3.3 L Amylase (30 - 110 U/L) 106 Lipase (23 - 300 U/L) 522 H Hematology CBC w Diff NO MAN DIFF REQ WBC (4.8 - 10.8 /CUMM) 14.9 H RBC (4.70 - 6.10 /CUMM) 4.30 L Hgb (14.0 - 18.0 G/DL) 13.3 L Hct (42 - 52 %) 39.4 L MCV (80.0 - 94.0 FL) 91.7 MCH (27.0 - 31.0 PG) 31.0 MCHC (33.0 - 37.0 G/DL) 33.8 RDW (11.5 - 14.5 %) 13.5 Plt Count (130 - 400 /CUMM) 212 MPV (7.4 - 10.4 FL) 7.9 Gran % (42.2 - 75.2 %) 93.1 H Lymphocytes % (20.5 - 51.1 %) 4.2 L Monocytes % (1.7 - 9.3 %) 2.7 Eosinophils % (0 - 5 %) 0 Basophils % (0.0 - 2.0 %) 0 Absolute Granulocytes (1.4 - 6.5 /CUMM) 13.8 H Absolute Lymphocytes (1.2 - 3.4 /CUMM) 0.6 L Absolute Monocytes (0.10 - 0.60 /CUMM) 0.4 Absolute Eosinophils (0.0 - 0.7 /CUMM) 0 Absolute Basophils (0.0 - 0.2 /CUMM) 0 Toxicology Urine Opiates Screen (>2000 NG/ML) < 100 Methadone Screen (>300 NG/ML) 68 Barbiturate Screen (>200 NG/ML) < 60 Ur Phencyclidine Scrn (>25 NG/ML) < 6.00 Amphetamines Screen (>1000 NG/ML) 104 U Benzodiazepines Scrn (>200 NG/ML) < 85 Urine Cocaine Screen (>300 NG/ML) < 50 Urine Cannabis Screen (>50 NG/ML) < 5.00 Serum Alcohol (<10 MG/DL) < 10.0 Acetone Level (NEGATIVE) NEGATIVE Urines Urinalysis HEAVY H Urine Color (YEL,AMB,STR) BROWN H Urine Clarity (CLEAR) CLDY H Urine pH (5.0 - 8.0) 7.0 Ur Specific [place] (1.001 - 1.035) 1.020 Urine Protein (NEG,<30 MG/DL) >=300 H Urine Ketones (NEG) TRACE H Urine Nitrite (NEG) POS H Urine Bilirubin (NEG) NEG@ICTO Urine Urobilinogen (0.1 - 1.0 EU/dl) 2.0 H Ur Leukocyte Esterase (NEG) TRACE H Ur Microscopic SEDIMENT EXAMINED Urine WBC (0 - 2 /HPF) 1-3 H Ur Epithelial Cells (NONE,FEW) MOD H Urine Bacteria (NEG/NONE) RARE H Granular Casts (NONE /LPF) FEW H Urine Mucus (FEW,NONE) FEW Micro UA Comment MORE INFO: H Urine Hemoglobin (NEG) LARGE H Urine Glucose (N MG/DL) 100 H 08/04 08/04 0430 0302 Chemistry Sodium (137 - 145 mmol/L) 137 Potassium (3.5 - 5.1 mmol/L) 3.3 L Chloride (98 - 107 mmol/L) 104 Carbon Dioxide (22 - 30 mmol/L) 22 Anion Gap (5 - 16) 11 BUN (9 - 20 mg/dL) 20 Creatinine (0.7 - 1.2 mg/dL) 1.2 Estimated GFR (>60 ml/min) > 60 BUN/Creatinine Ratio (7 - 25 %) 16.7 Glucose (65 - 99 mg/dL) 150 H Calcium (8.4 - 10.2 mg/dL) 8.5 Total Bilirubin (0.2 - 1.3 mg/dL) 4.2 H Direct Bilirubin (< 0.4 mg/dL) 1.6 H AST (17 - 59 U/L) 86 H ALT (21 - 72 U/L) 38 Alkaline Phosphatase (< 127 U/L) 50 Troponin I (<0.11 ng/ml) 0.01 Total Protein (6.3 - 8.2 g/dL) 6.5 Albumin (3.5 - 5.0 g/dL) 3.8 Amylase (30 - 110 U/L) 176 H Lipase (23 - 300 U/L) 1577 H Hematology CBC w Diff NO MAN DIFF REQ WBC (4.8 - 10.8 /CUMM) 12.0 H RBC (4.70 - 6.10 /CUMM) 4.94 Hgb (14.0 - 18.0 G/DL) 15.4 Hct (42 - 52 %) 45.6 MCV (80.0 - 94.0 FL) 92.3 MCH (27.0 - 31.0 PG) 31.1 H MCHC (33.0 - 37.0 G/DL) 33.7 RDW (11.5 - 14.5 %) 14.1 Plt Count (130 - 400 /CUMM) 245 MPV (7.4 - 10.4 FL) 8.0 Gran % (42.2 - 75.2 %) 65.0 Lymphocytes % (20.5 - 51.1 %) 28.7 Monocytes % (1.7 - 9.3 %) 3.1 Eosinophils % (0 - 5 %) 3.1 Basophils % (0.0 - 2.0 %) 0.1 Absolute Granulocytes (1.4 - 6.5 /CUMM) 7.8 H Absolute Lymphocytes (1.2 - 3.4 /CUMM) 3.4 Absolute Monocytes (0.10 - 0.60 /CUMM) 0.4 Absolute Eosinophils (0.0 - 0.7 /CUMM) 0.4 Absolute Basophils (0.0 - 0.2 /CUMM) 0 Toxicology Salicylates (0 - 20.0 mg/dL) < 1.0 Acetaminophen (10.0 - 30.0 ug/mL) < 10.0 L Assessment/Plan Assessment/Recommendations: ASSESSMENT: 1. Elevated amylase and lipase 2. Elevated bilirubin. This is mostly indirect. Patient may have underlying Gilbert's syndrome 3. Mild elevation in ALT. Likely related to hepatic steatosis. if not previously tested for Hepatitis C, that should be done. 4. Obesity, status post gastric bypass 5. Abdominal pain, suspect patient with effects of toxic ingestion related to NSAIDs exposed to laundry detergent. 6. Question of pancreatitis. Believe elevated amylase and lipase are due to nausea and vomiting in the setting of a toxic ingestion and not related to pancreatitis. Especially in light of normal CT. RECOMMENDATIONS: 1. With keep patient nothing by mouth 2. Will reevaluate patient in a.m. and consider upper endoscopy although patient no longer with upper abdominal pain. 3. Follow CBC. Suspect increased WBC related to stress demargination. Consult Acknowledgment - Thank you for your consult request.
[2017-08-04 21:29] VITALS: BP 132/88
[2017-08-05 06:51] VITALS: BP 130/84
--- NOTE | 2017-08-05 08:32 | PN- Housestaff ---
See Addendum Subjective Follow-up For: Propylene glycol ingestion v/s analgesic nephropathy Elevated amylase and lipase Elevated bilirubin Subjective: Patient reports abdominal pain 5/10 in severity that seems to be improving, nausea and decreased UOP to what is normal for him at home. He usually drinks multiple gallons of water a day. He states he would like to eat. Denies vomiting , CB, SOB, diarrhea or hematuria Review of Systems Constitutional: Reports: see HPI. Objective Last 24 Hrs of Vital Signs/I&O Vital Signs Date Time Temp Pulse Resp B/P B/P Pulse O2 O2 Flow FiO2 Mean Ox Delivery Rate 08/05 0651 98.6 83 20 130/84 90 Room Air 08/04 2334 Room Air Room Air 08/04 2129 98.4 63 20 132/88 99 08/04 1444 98.7 57 20 122/80 98 Room Air 08/04 1325 96.2 59 18 122/77 97 08/04 1141 97.6 60 18 130/83 97 Room Air Intake & Output 08/05 1600 08/05 0800 08/05 0000 Intake Total 1260 1060 Output Total 150 700 Balance 1110 360 Intake, IV 1200 1000 Intake, Oral 60 60 Number 1 Bowel Movements Output, Urine 150 700 Physical Exam General Appearance: Alert, Oriented X3, Cooperative, No Acute Distress, Obese Cardiovascular: Regular Rate, Normal S1, Normal S2 Lungs: Clear to Auscultation, Normal Air Movement Abdomen: Epigastric abdominal pain that radiates to back upon deep palpation Current Medications: Current Medications Sig/Jordon Start time Last Medication Dose Route Stop Time Status Admin Albuterol Sulfate 3 ML Q4P PRN 08/04 2345 AC INH Enoxaparin Sodium 0 .STK-MED ONE 08/04 1229 DC SC Enoxaparin Sodium 40 MG DAILY 08/04 1202 DC SC Morphine Sulfate 2 MG Q4P PRN 08/04 1500 AC 08/05 IV 0842 Morphine Sulfate 0 .STK-MED ONE 08/04 1229 DC .ROUTE Morphine Sulfate 4 MG ONCE ONE 08/04 1200 DC 08/04 IV 08/04 1201 1234 Pantoprazole Sodium 40 MG BID 08/04 2100 AC 08/05 IV 0836 Prednisone 20 MG DAILY 08/05 0900 AC PO 08/07 0901 Sodium Chloride 1,000 ML Q6H 08/04 2100 AC 05/27 IV 0836 Sodium Chloride 1,000 ML Q20H 08/04 1215 DC 08/04 IV 1234 Last 24 Hrs of Lab/Suresh Results Last 24 Hrs of Labs/Mics: Laboratory Tests 08/05/17 0607: Sodium Pending, Potassium Pending, Chloride Pending, Carbon Dioxide Pending, Anion Gap Pending, BUN Pending, Creatinine Pending, BUN/Creatinine Ratio Pending , Phosphorus Pending, Magnesium Pending, Total Bilirubin Pending, Direct Bilirubin Pending, AST Pending, ALT Pending, Alkaline Phosphatase Pending, Total Protein Pending, Albumin Pending, Amylase Pending, Lipase Pending, CBC w Diff NO MAN DIFF REQ, RBC 4.31 L, MCV 91.2, MCH 31.1 H, MCHC 34.1, RDW 13.7, MPV 8.6, Gran % 81.1 H, Lymphocytes % 10.1 L, Monocytes % 8.4, Eosinophils % 0.2, Basophils % 0.2, Absolute Granulocytes 11.1 H, Absolute Lymphocytes 1.4, Absolute Monocytes 1.1 H, Absolute Eosinophils 0, Absolute Basophils 0 08/04/17 1515: Serum Osmolality Cancelled 08/04/17 1515: Anion Gap 11, Estimated GFR 30 L, BUN/Creatinine Ratio 12.1, Serum Osmolality 293 08/04/17 1205: Methadone Screen Cancelled, Barbiturate Screen Cancelled, Ur Phencyclidine Scrn Cancelled, Amphetamines Screen Cancelled, U Benzodiazepines Scrn Cancelled, Urine Cocaine Screen Cancelled, Urine Cannabis Screen Cancelled Assessment/Plan Assessment: Patient is a 41-year-old male past medical history of cholecystectomy, 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 Problem list: #Elevated amylase and lipase 2/2 acute pancreatits vs due to ?Propylene glycol ingestion (Serum Osm WNL) #Elevated bilirubin #Leukocytosis - most likely reactive #RHONDA - 2/2 ATN vs AIN vs ?toxic ingestion Plan: * Continue IV fluids 150 cc/h * Strict intake output * Continue IV pantoprazole 40 mg IV twice daily * Stool for occult blood * Aprpeciate GI recommendations * Endoscopy per GI pending * [facility]-full code Diet-n.p.o. for possible upper GI endoscopy, DVT prophylaxis-ALPS Problem List: 1. Pancreatitis 2. Accidental poisoning by secondary propyl alcohol Pain Ratin Pain Location: Epigastric Pain Goal: Pain 4 or less Pain Plan: Morphine Tomorrow's Labs & Rationales: CBC, BEP
[2017-08-05 09:08] LABS: ABSOLUTE BASOPHIL COUNT 0 /CUMM (0.0-0.2); ABSOLUTE EOSINOPHIL COUNT 0 /CUMM (0.0-0.7); ABSOLUTE GRANULOCYTE CT 11.1 /CUMM (1.4-6.5); ABSOLUTE LYMPH COUNT 1.4 /CUMM (1.2-3.4); ABSOLUTE MONOCYTE COUNT 1.1 /CUMM (0.10-0.60); BASOPHIL % 0.2 % (0.0-2.0); EOSINOPHIL % 0.2 % (0-5); GRANULOCYTE % 81.1 % (42.2-75.2); HEMATOCRIT 39.3 % (42-52); MEAN CORPUSCULAR HGB 31.1 PG (27.0-31.0); MEAN CORPUSCULAR HGB CONC 34.1 G/DL (33.0-37.0); MEAN CORPUSCULAR VOLUME 91.2 FL (80.0-94.0); MEAN PLATELET VOLUME 8.6 FL (7.4-10.4); PLATELET COUNT 189 /CUMM (130-400); RBC DISTRIBUTION WIDTH 13.7 % (11.5-14.5); RED BLOOD CELL CT 4.31 /CUMM (4.70-6.10); WHITE BLOOD CELL COUNT 13.7 /CUMM (4.8-10.8)
--- NOTE | 2017-08-05 12:33 | PN- Gastroenterology ---
Assessment/Plan GI Assessment/Recommendations: ASSESSMENT: 1. Upper Abdominal Pain -- likely related to an overwhelming allergic reaction rather than caustic ingestion. 2. Increased creatinine -- again sign of immune hyperreactivity. On steroids per nephrology 3. Back pain -- is a chronic problem 4. Acute Kidney Injury -- on PO steroids 5. Lower abdominal pain -- unclear etiology. ? whether related to RHONDA? If persistent consider colonoscopy. RECOMMENDATIONS: 1. Advance diet gradually. Start with full liquids and if tolerated advance slowly 2. Continue IV Protonix. Once tolerating PO can change IV to PO 3. Defer EGD but would like to do within next 24 to 48 hours. Subjective Subjective: Patient is no longer complaining of upper abdominal pain. He does report low back pain which has a chronic problem for him. He does have lower abdominal pain which he reports is new for him. He had a normal soft stool today without straining. There was no BRBPR and no melena. He has had no nausea, vomiting, hematemesis, or melena/BRBPR. He has had no further nausea or vomiting. He has had no fever or shaking chills. He is eager to eat. Objective Vital Signs and I&Os Vital Signs Date Time Temp Pulse Resp B/P B/P Pulse O2 O2 Flow FiO2 Mean Ox Delivery Rate 08/05 0651 98.6 83 20 130/84 90 Room Air 08/04 2334 Room Air Room Air 08/049 98.4 63 20 132/88 99 08/04 1444 98.7 57 20 122/80 98 Room Air 08/04 1325 96.2 59 18 122/77 97 Intake & Output 08/05 1600 08/05 0400 08/04 0400 08/03 1600 08/03 0400 Intake Total 1260 1060 20 Output Total 150 700 Balance 1110 360 20 Intake, IV 1200 1000 Intake, Oral 60 60 20 Number 1 Bowel Movements Output, Urine 150 700 Patient 263 lb 250 lb Weight Weight Bed scale Reported by Patient Measurement Method Physical Exam General Appearance: well developed/nourished, no apparent distress, alert, comfortable Head: atraumatic, normal appearance Neck: normal inspection, supple Respiratory: normal breath sounds, chest non-tender, no respiratory distress, lungs clear Cardiovascular: regular rate/rhythm, Normal S1 and S2 without rub, murmur, or gallop Abdomen: normal bowel sounds, soft, non-tender, no organomegaly, no rebound or guarding Neurologic/Psychiatric: no motor/sensory deficits, awake, alert, oriented x 3 Skin: intact, normal color, warm/dry Current Medications: Current Medications Sig/Jordon Start time Last Medication Dose Route Stop Time Status Admin Albuterol Sulfate 3 ML Q4P PRN 08/04 2345 AC INH Enoxaparin Sodium 0 .STK-MED ONE 08/04 1229 DC SC Enoxaparin Sodium 40 MG DAILY 08/04 1202 DC SC Lidocaine 1 PAT DAILY 08/05 1131 AC TOP Morphine Sulfate 2 MG Q4P PRN 08/04 1500 AC 08/05 IV 0842 Morphine Sulfate 0 .STK-MED ONE 08/04 1229 DC .ROUTE Pantoprazole Sodium 40 MG BID 08/04 2100 AC 08/05 IV 0836 Prednisone 20 MG DAILY 08/05 0900 AC 08/05 PO 08/07 0901 1002 Sodium Chloride 1,000 ML Q6H 08/04 2100 AC 08/05 IV 0836 Sodium Chloride 1,000 ML Q20H 08/04 1215 DC 08/04 IV 1234 Results Pertinent Lab Results: Laboratory Tests 08/05 08/04 08/04 0607 1515 1515 Chemistry Sodium (137 - 145 mmol/L) 138 135 L Potassium (3.5 - 5.1 mmol/L) 3.9 4.6 Chloride (98 - 107 mmol/L) 107 104 Carbon Dioxide (22 - 30 mmol/L) 20 L 20 L Anion Gap (5 - 16) 11 11 BUN (9 - 20 mg/dL) 38 H 29 H Creatinine (0.7 - 1.2 mg/dL) 4.0 H 2.4 H Estimated GFR (>60 ml/min) 17 L 30 L BUN/Creatinine Ratio (7 - 25 %) 9.5 12.1 Serum Osmolality (285 - 295 MOSM/KG) Cancelled 293 Phosphorus (2.5 - 4.5 mg/dL) 3.9 Magnesium (1.6 - 2.3 mg/dL) 1.8 Total Bilirubin (0.2 - 1.3 mg/dL) 0.8 Direct Bilirubin (< 0.4 mg/dL) 0.2 AST (17 - 59 U/L) 34 ALT (21 - 72 U/L) 38 Alkaline Phosphatase (< 127 U/L) 51 Total Protein (6.3 - 8.2 g/dL) 5.8 L Albumin (3.5 - 5.0 g/dL) 3.4 L Amylase (30 - 110 U/L) 50 Lipase (23 - 300 U/L) 68 Hematology CBC w Diff NO MAN DIFF REQ WBC (4.8 - 10.8 /CUMM) 13.7 H RBC (4.70 - 6.10 /CUMM) 4.31 L Hgb (14.0 - 18.0 G/DL) 13.4 L Hct (42 - 52 %) 39.3 L MCV (80.0 - 94.0 FL) 91.2 MCH (27.0 - 31.0 PG) 31.1 H MCHC (33.0 - 37.0 G/DL) 34.1 RDW (11.5 - 14.5 %) 13.7 Plt Count (130 - 400 /CUMM) 189 MPV (7.4 - 10.4 FL) 8.6 Gran % (42.2 - 75.2 %) 81.1 H Lymphocytes % (20.5 - 51.1 %) 10.1 L Monocytes % (1.7 - 9.3 %) 8.4 Eosinophils % (0 - 5 %) 0.2 Basophils % (0.0 - 2.0 %) 0.2 Absolute Granulocytes (1.4 - 6.5 /CUMM) 11.1 H Absolute Lymphocytes (1.2 - 3.4 /CUMM) 1.4 Absolute Monocytes (0.10 - 0.60 /CUMM) 1.1 H Absolute Eosinophils (0.0 - 0.7 /CUMM) 0 Absolute Basophils (0.0 - 0.2 /CUMM) 0 08/04 08/04 08/04 2920 2869 [id number] Toxicology Urine Opiates Screen (>2000 NG/ML) < 100 Methadone Screen (>300 NG/ML) Cancelled 68 Barbiturate Screen (>200 NG/ML) Cancelled < 60 Ur Phencyclidine Scrn (>25 NG/ML) Cancelled < 6.00 Amphetamines Screen (>1000 NG/ML) Cancelled 104 U Benzodiazepines Scrn (>200 NG/ML) Cancelled < 85 Urine Cocaine Screen (>300 NG/ML) Cancelled < 50 Urine Cannabis Screen (>50 NG/ML) Cancelled < 5.00 Urines Urinalysis HEAVY H Urine Color (YEL,AMB,STR) BROWN H Urine Clarity (CLEAR) CLDY H Urine pH (5.0 - 8.0) 7.0 Ur Specific [place] (1.001 - 1.035) 1.020 Urine Protein (NEG,<30 MG/DL) >=300 H Urine Ketones (NEG) TRACE H Urine Nitrite (NEG) POS H Urine Bilirubin (NEG) NEG@ICTO Urine Urobilinogen (0.1 - 1.0 EU/dl) 2.0 H Ur Leukocyte Esterase (NEG) TRACE H Ur Microscopic SEDIMENT EXAMINED Urine WBC (0 - 2 /HPF) 1-3 H Ur Epithelial Cells (NONE,FEW) MOD H Urine Bacteria (NEG/NONE) RARE H Granular Casts (NONE /LPF) FEW H Urine Mucus (FEW,NONE) FEW Micro UA Comment MORE INFO: H Urine Hemoglobin (NEG) LARGE H Urine Osmolality (300 - 1000 MOSM/KG) 292 L Urine Glucose (N MG/DL) 100 H 08/04 08/04 0914 0430 Chemistry Sodium (137 - 145 mmol/L) 138 137 Potassium (3.5 - 5.1 mmol/L) 3.8 3.3 L Chloride (98 - 107 mmol/L) 107 104 Carbon Dioxide (22 - 30 mmol/L) 20 L 22 Anion Gap (5 - 16) 11 11 BUN (9 - 20 mg/dL) 24 H 20 Creatinine (0.7 - 1.2 mg/dL) 1.6 H 1.2 Estimated GFR (>60 ml/min) 48 L > 60 BUN/Creatinine Ratio (7 - 25 %) 15.0 16.7 Glucose (65 - 99 mg/dL) 154 H 150 H Lactic Acid (0.7 - 2.1 mmol/L) 1.2 Calcium (8.4 - 10.2 mg/dL) 7.7 L 8.5 Total Bilirubin (0.2 - 1.3 mg/dL) 2.0 H 4.2 H Direct Bilirubin (< 0.4 mg/dL) 0.6 H 1.6 H AST (17 - 59 U/L) 82 H 86 H ALT (21 - 72 U/L) 42 38 Alkaline Phosphatase (< 127 U/L) 42 50 Creatine Kinase (55 - 170 U/L) 96 Troponin I (<0.11 ng/ml) < 0.01 0.01 Total Protein (6.3 - 8.2 g/dL) 5.8 L 6.5 Albumin (3.5 - 5.0 g/dL) 3.3 L 3.8 Amylase (30 - 110 U/L) 106 176 H Lipase (23 - 300 U/L) 522 H 1577 H Hematology CBC w Diff NO MAN DIFF REQ WBC (4.8 - 10.8 /CUMM) 14.9 H RBC (4.70 - 6.10 /CUMM) 4.30 L Hgb (14.0 - 18.0 G/DL) 13.3 L Hct (42 - 52 %) 39.4 L MCV (80.0 - 94.0 FL) 91.7 MCH (27.0 - 31.0 PG) 31.0 MCHC (33.0 - 37.0 G/DL) 33.8 RDW (11.5 - 14.5 %) 13.5 Plt Count (130 - 400 /CUMM) 212 MPV (7.4 - 10.4 FL) 7.9 Gran % (42.2 - 75.2 %) 93.1 H Lymphocytes % (20.5 - 51.1 %) 4.2 L Monocytes % (1.7 - 9.3 %) 2.7 Eosinophils % (0 - 5 %) 0 Basophils % (0.0 - 2.0 %) 0 Absolute Granulocytes (1.4 - 6.5 /CUMM) 13.8 H Absolute Lymphocytes (1.2 - 3.4 /CUMM) 0.6 L Absolute Monocytes (0.10 - 0.60 /CUMM) 0.4 Absolute Eosinophils (0.0 - 0.7 /CUMM) 0 Absolute Basophils (0.0 - 0.2 /CUMM) 0 Serology Hepatitis A IgM Ab (NONREACTIVE) NONREACTIVE Hep Bs Antigen (NONREACTIVE) NONREACTIVE Hep B Core IgM Ab Conf (NONREACTIVE) NONREACTIVE Hepatitis C Antibody (NONREACTIVE) NONREACTIVE Toxicology Salicylates (0 - 20.0 mg/dL) < 1.0 Acetaminophen (10.0 - 30.0 ug/mL) < 10.0 L Serum Alcohol (<10 MG/DL) < 10.0 Acetone Level (NEGATIVE) NEGATIVE 08/04 301 Hematology CBC w Diff NO MAN DIFF REQ WBC (4.8 - 10.8 /CUMM) 12.0 H RBC (4.70 - 6.10 /CUMM) 4.94 Hgb (14.0 - 18.0 G/DL) 15.4 Hct (42 - 52 %) 45.6 MCV (80.0 - 94.0 FL) 92.3 MCH (27.0 - 31.0 PG) 31.1 H MCHC (33.0 - 37.0 G/DL) 33.7 RDW (11.5 - 14.5 %) 14.1 Plt Count (130 - 400 /CUMM) 245 MPV (7.4 - 10.4 FL) 8.0 Gran % (42.2 - 75.2 %) 65.0 Lymphocytes % (20.5 - 51.1 %) 28.7 Monocytes % (1.7 - 9.3 %) 3.1 Eosinophils % (0 - 5 %) 3.1 Basophils % (0.0 - 2.0 %) 0.1 Absolute Granulocytes (1.4 - 6.5 /CUMM) 7.8 H Absolute Lymphocytes (1.2 - 3.4 /CUMM) 3.4 Absolute Monocytes (0.10 - 0.60 /CUMM) 0.4 Absolute Eosinophils (0.0 - 0.7 /CUMM) 0.4 Absolute Basophils (0.0 - 0.2 /CUMM) 0
--- NOTE | 2017-08-05 13:02 | Cons- Nephrology ---
General Information and HPI Consulting Request Date of Consult: 08/05/17 Requested By: Elijah Bonilla MD Reason for Consult: RHONDA Source of Information: patient, old records Exam Limitations: no limitations History of Present Illness: The patient is a 41-year-old male with past medical history most significant for baseline normal kidney function with a creatinine 0.9, obesity status post gastric bypass, anemia as result of vitamin deficiencies from his surgery on supplementation, six-month history of diabetes preceding his surgery now without who presents with allergic reaction after ingesting a medicine. The patient was in his usual state of health until Sunday night when he ingested a couple of Advil PM pills which had gone through a washer/dryer cycle while in an individual package. He subsequently developed chest tightness, wheezing, hives. Called poison control who recommended taking Benadryl. He says it only came to the emergency room. In the ER, he was given albuterol nebulizers, Benadryl, Pepcid 125 mg of Solu- Medrol, Zofran. He was made nothing by mouth and started on intravenous fluids. Lab work notable for white count 12.0 without significant eosinophilia. Serum also not elevated (concern for propylene glycol in diswashing detergent although the pills were not wet) - should note anion gap normal. Creatinine 0.9 and presentation yesterday a.m. which is risen to 4.0. CT imaging with unremarkable kidneys (done without contrast). No hypotension. No other nephrotoxic meds. Should note that he had LFT abnormalities presentation including a bilirubin of 4.2 and elevated AST which was under 100 and have both normalized. He came to the patient more, he notes that when he first came to the emergency room he urinated sarah blood which has never happened before. Should note that the only prior urinalysis in 2010 was without any protein in the patient is unaware of any urinary abnormalities. Subsequently urinated Coca-Cola colored urine which she has a picture of. The urinalysis was with large blood, greater than 300 protein, 1-3 WBC. He reports that his urine has cleared up over the last day or so. Allergies/Medications Allergies: Coded Allergies: NSAIDS (Non-Steroidal Anti-Inflamma (R/T GASTYRIC BYPASS SX 07/23/15) cefaclor (From CECLOR) (ANAPHYLAXIS 07/23/15) Home Med List: Acetaminophen (Tylenol Extra Strength) 500 MG TABLET 2 TAB PO Q8 PRN PAIN ( Reported) Calcium Citrate (Unknown Strength) TABLET (Unknown Dose) PO DAILY SUPPLEMENT (Reported) Cholecalciferol (Vitamin D3) (Vitamin D) (Unknown Strength) TABLET (Unknown Dose) PO DAILY SUPPLEMENT (Reported) Cyanocobalamin (Vitamin B-12) (Unknown Strength) TABLET (Unknown Dose) PO 2XW SUPPLEMENT (Reported) Docusate Sodium (Colace) 100 MG CAPSULE 1 CAP PO DAILY STOOL SOFTENER ( Reported) Epinephrine (Epipen 2-Jax) 0.3 MG/0.3 ML AUTO.INJCT 1 INJ IM X1 PRN SEVERE ALLERGIC REACTION AND CALL 911 Ferrous Sulfate (IRON) 325 MG (65 MG IRON) TABLET 1 TAB PO BID ANEMIA ( Reported) Hydroxyzine HCl (hydrOXYzine HCl) 50 MG TABLET 1 TAB PO TID PRN ALLERGIC REACTION Methylprednisolone. (Medrol) 4 MG TAB.DS.PK 1 DP PO AD allergic reaction 6 on day 1 then reduce by one tablet daily until gone Multiple Vitamin (Multivitamins) 1 EACH TABLET 1 TAB PO DAILY SUPPLEMENT ( Reported) Omeprazole 40 MG CAPSULE.DR 1 CAP PO DAILY GERD (Reported) Current Medications: Current Medications Sig/Jordon Start time Last Medication Dose Route Stop Time Status Admin Albuterol Sulfate 3 ML Q4P PRN 08/04 2345 AC INH Lidocaine 1 PAT DAILY 08/05 1131 AC TOP Morphine Sulfate 2 MG Q4P PRN 08/04 1500 AC 08/05 IV 0842 Pantoprazole Sodium 40 MG BID 08/04 2100 AC 08/05 IV 0836 Prednisone 20 MG DAILY 08/05 0900 AC 08/05 PO 08/07 0901 1002 Sodium Chloride 1,000 ML Q6H 08/04 2100 AC 08/05 IV 0836 Sodium Chloride 1,000 ML Q20H 08/04 1215 DC 08/04 IV 1234 Review of Systems Review of Systems: Complete 14 point ROS neg except as per HPI Past History Travel History Traveled to [place] past 21 day No Medical History Blood Transfusion Hx: No Neurological: NONE EENT: NONE Cardiovascular: NONE Respiratory: bronchitis Gastrointestinal: GASTRIC BYPASS SX Hepatic: NONE Renal: NONE Musculoskeletal: NONE Psychiatric: NONE Endocrine: diabetes Blood Disorders: NONE Cancer(s): NONE MICA PASTER/Reproductive: NONE Surgical History Surgical History: non-contributory Psychosocial History Where Do You Live? Home Services at Home: None Smoking Status: Current Everyday Smoker ETOH Use: occasional use Illicit Drug Use: denies illicit drug use Exam & Diagnostic Data Vital Signs and I&O Vital Signs Date Time Temp Pulse Resp B/P B/P Pulse O2 O2 Flow FiO2 Mean Ox Delivery Rate 08/05 0651 98.6 83 20 130/84 90 Room Air 08/04 2334 Room Air Room Air 08/04 2128 98.4 63 20 132/88 99 08/04 1444 98.7 57 20 122/80 98 Room Air 08/04 1325 96.2 59 18 122/77 97 Intake & Output 08/05 1600 08/05 0400 08/04 1600 08/04 0400 08/03 0400 Intake Total 1260 1060 20 Output Total 150 700 Balance 1110 360 20 Intake, IV 1200 1000 Intake, Oral 60 60 20 Number 1 Bowel Movements Output, Urine 150 700 Patient 263 lb 250 lb Weight Weight Bed scale Reported by Patient Measurement Method Physical Exam: Gen - NAD Head - NCAT Eyes - anicteric sclera, EOMI Neck - supple, no LAD CV - RRR, no m/r/g Chest - clear, no w/r/r Abd - soft, NTND Upper ext - warm, no edema Lower ext - warm, no edema Skin - no rash or jaundice Neuro - AOX3, grossly nonfocal Results Pertinent Lab Results: Laboratory Tests 08/05 08/04 08/04 0607 1515 1515 Chemistry Sodium (137 - 145 mmol/L) 138 135 L Potassium (3.5 - 5.1 mmol/L) 3.9 4.6 Chloride (98 - 107 mmol/L) 107 104 Carbon Dioxide (22 - 30 mmol/L) 20 L 20 L Anion Gap (5 - 16) 11 11 BUN (9 - 20 mg/dL) 38 H 29 H Creatinine (0.7 - 1.2 mg/dL) 4.0 H 2.4 H Estimated GFR (>60 ml/min) 17 L 30 L BUN/Creatinine Ratio (7 - 25 %) 9.5 12.1 Serum Osmolality (285 - 295 MOSM/KG) Cancelled 293 Phosphorus (2.5 - 4.5 mg/dL) 3.9 Magnesium (1.6 - 2.3 mg/dL) 1.8 Total Bilirubin (0.2 - 1.3 mg/dL) 0.8 Direct Bilirubin (< 0.4 mg/dL) 0.2 AST (17 - 59 U/L) 34 ALT (21 - 72 U/L) 38 Alkaline Phosphatase (< 127 U/L) 51 Total Protein (6.3 - 8.2 g/dL) 5.8 L Albumin (3.5 - 5.0 g/dL) 3.4 L Amylase (30 - 110 U/L) 50 Lipase (23 - 300 U/L) 68 Hematology CBC w Diff NO MAN DIFF REQ WBC (4.8 - 10.8 /CUMM) 13.7 H RBC (4.70 - 6.10 /CUMM) 4.31 L Hgb (14.0 - 18.0 G/DL) 13.4 L Hct (42 - 52 %) 39.3 L MCV (80.0 - 94.0 FL) 91.2 MCH (27.0 - 31.0 PG) 31.1 H MCHC (33.0 - 37.0 G/DL) 34.1 RDW (11.5 - 14.5 %) 13.7 Plt Count (130 - 400 /CUMM) 189 MPV (7.4 - 10.4 FL) 8.6 Gran % (42.2 - 75.2 %) 81.1 H Lymphocytes % (20.5 - 51.1 %) 10.1 L Monocytes % (1.7 - 9.3 %) 8.4 Eosinophils % (0 - 5 %) 0.2 Basophils % (0.0 - 2.0 %) 0.2 Absolute Granulocytes (1.4 - 6.5 /CUMM) 11.1 H Absolute Lymphocytes (1.2 - 3.4 /CUMM) 1.4 Absolute Monocytes (0.10 - 0.60 /CUMM) 1.1 H Absolute Eosinophils (0.0 - 0.7 /CUMM) 0 Absolute Basophils (0.0 - 0.2 /CUMM) 0 08/04 08/04 08/04 1205 0917 0941 Toxicology Urine Opiates Screen (>2000 NG/ML) < 100 Methadone Screen (>300 NG/ML) Cancelled 68 Barbiturate Screen (>200 NG/ML) Cancelled < 60 Ur Phencyclidine Scrn (>25 NG/ML) Cancelled < 6.00 Amphetamines Screen (>1000 NG/ML) Cancelled 104 U Benzodiazepines Scrn (>200 NG/ML) Cancelled < 85 Urine Cocaine Screen (>300 NG/ML) Cancelled < 50 Urine Cannabis Screen (>50 NG/ML) Cancelled < 5.00 Urines Urinalysis HEAVY H Urine Color (YEL,AMB,STR) BROWN H Urine Clarity (CLEAR) CLDY H Urine pH (5.0 - 8.0) 7.0 Ur Specific [place] (1.001 - 1.035) 1.020 Urine Protein (NEG,<30 MG/DL) >=300 H Urine Ketones (NEG) TRACE H Urine Nitrite (NEG) POS H Urine Bilirubin (NEG) NEG@ICTO Urine Urobilinogen (0.1 - 1.0 EU/dl) 2.0 H Ur Leukocyte Esterase (NEG) TRACE H Ur Microscopic SEDIMENT EXAMINED Urine WBC (0 - 2 /HPF) 1-3 H Ur Epithelial Cells (NONE,FEW) MOD H Urine Bacteria (NEG/NONE) RARE H Granular Casts (NONE /LPF) FEW H Urine Mucus (FEW,NONE) FEW Micro UA Comment MORE INFO: H Urine Hemoglobin (NEG) LARGE H Urine Osmolality (300 - 1000 MOSM/KG) 292 L Urine Glucose (N MG/DL) 100 H 08/04 08/04 0914 0430 Chemistry Sodium (137 - 145 mmol/L) 138 137 Potassium (3.5 - 5.1 mmol/L) 3.8 3.3 L Chloride (98 - 107 mmol/L) 107 104 Carbon Dioxide (22 - 30 mmol/L) 20 L 22 Anion Gap (5 - 16) 11 11 BUN (9 - 20 mg/dL) 24 H 20 Creatinine (0.7 - 1.2 mg/dL) 1.6 H 1.2 Estimated GFR (>60 ml/min) 48 L > 60 BUN/Creatinine Ratio (7 - 25 %) 15.0 16.7 Glucose (65 - 99 mg/dL) 154 H 150 H Lactic Acid (0.7 - 2.1 mmol/L) 1.2 Calcium (8.4 - 10.2 mg/dL) 7.7 L 8.5 Total Bilirubin (0.2 - 1.3 mg/dL) 2.0 H 4.2 H Direct Bilirubin (< 0.4 mg/dL) 0.6 H 1.6 H AST (17 - 59 U/L) 82 H 86 H ALT (21 - 72 U/L) 42 38 Alkaline Phosphatase (< 127 U/L) 42 50 Creatine Kinase (55 - 170 U/L) 96 Troponin I (<0.11 ng/ml) < 0.01 0.01 Total Protein (6.3 - 8.2 g/dL) 5.8 L 6.5 Albumin (3.5 - 5.0 g/dL) 3.3 L 3.8 Amylase (30 - 110 U/L) 106 176 H Lipase (23 - 300 U/L) 522 H 1577 H Hematology CBC w Diff NO MAN DIFF REQ WBC (4.8 - 10.8 /CUMM) 14.9 H RBC (4.70 - 6.10 /CUMM) 4.30 L Hgb (14.0 - 18.0 G/DL) 13.3 L Hct (42 - 52 %) 39.4 L MCV (80.0 - 94.0 FL) 91.7 MCH (27.0 - 31.0 PG) 31.0 MCHC (33.0 - 37.0 G/DL) 33.8 RDW (11.5 - 14.5 %) 13.5 Plt Count (130 - 400 /CUMM) 212 MPV (7.4 - 10.4 FL) 7.9 Gran % (42.2 - 75.2 %) 93.1 H Lymphocytes % (20.5 - 51.1 %) 4.2 L Monocytes % (1.7 - 9.3 %) 2.7 Eosinophils % (0 - 5 %) 0 Basophils % (0.0 - 2.0 %) 0 Absolute Granulocytes (1.4 - 6.5 /CUMM) 13.8 H Absolute Lymphocytes (1.2 - 3.4 /CUMM) 0.6 L Absolute Monocytes (0.10 - 0.60 /CUMM) 0.4 Absolute Eosinophils (0.0 - 0.7 /CUMM) 0 Absolute Basophils (0.0 - 0.2 /CUMM) 0 Serology Hepatitis A IgM Ab (NONREACTIVE) NONREACTIVE Hep Bs Antigen (NONREACTIVE) NONREACTIVE Hep B Core IgM Ab Conf (NONREACTIVE) NONREACTIVE Hepatitis C Antibody (NONREACTIVE) NONREACTIVE Toxicology Salicylates (0 - 20.0 mg/dL) < 1.0 Acetaminophen (10.0 - 30.0 ug/mL) < 10.0 L Serum Alcohol (<10 MG/DL) < 10.0 Acetone Level (NEGATIVE) NEGATIVE 08/04 030 Hematology CBC w Diff NO MAN DIFF REQ WBC (4.8 - 10.8 /CUMM) 12.0 H RBC (4.70 - 6.10 /CUMM) 4.94 Hgb (14.0 - 18.0 G/DL) 15.4 Hct (42 - 52 %) 45.6 MCV (80.0 - 94.0 FL) 92.3 MCH (27.0 - 31.0 PG) 31.1 H MCHC (33.0 - 37.0 G/DL) 33.7 RDW (11.5 - 14.5 %) 14.1 Plt Count (130 - 400 /CUMM) 245 MPV (7.4 - 10.4 FL) 8.0 Gran % (42.2 - 75.2 %) 65.0 Lymphocytes % (20.5 - 51.1 %) 28.7 Monocytes % (1.7 - 9.3 %) 3.1 Eosinophils % (0 - 5 %) 3.1 Basophils % (0.0 - 2.0 %) 0.1 Absolute Granulocytes (1.4 - 6.5 /CUMM) 7.8 H Absolute Lymphocytes (1.2 - 3.4 /CUMM) 3.4 Absolute Monocytes (0.10 - 0.60 /CUMM) 0.4 Absolute Eosinophils (0.0 - 0.7 /CUMM) 0.4 Absolute Basophils (0.0 - 0.2 /CUMM) 0 Imaging/Other Studies: EXAM TYPE: CAT - CT ABD & PELVIS W/O IV CONTRAS EXAMINATION: CT ABDOMEN AND PELVIS WITHOUT CONTRAST CLINICAL INFORMATION: Mid epigastric pain. COMPARISON: None TECHNIQUE: Multidetector volumetric imaging was performed from the superior aspect of the liver through the pubic symphysis. Sagittal and coronal reformatted images were obtained on the technologist's workstation. DLP: 1517.87 mGy-cm FINDINGS: LUNG BASES: The visualized lung bases are unremarkable. LIVER, GALLBLADDER, AND BILIARY TREE: The liver is normal in size, shape, and attenuation. No focal hepatic lesion or biliary ductal dilatation is present. Status post cholecystectomy. No bile duct dilatation. PANCREAS: Unremarkable. SPLEEN: Unremarkable. ADRENAL GLANDS: Unremarkable. KIDNEYS AND URETERS: The kidneys are normal in size, shape, and attenuation. No hydronephrosis, hydroureter, or calculi seen. No perinephric stranding. BLADDER: Unremarkable. GASTROINTESTINAL TRACT: Small hiatal hernia. Status post gastric bypass surgery with surgical sutures of the stomach and proximal small bowel loops. No abnormally dilated bowel. No bowel obstruction. No bowel wall thickening or edema. The appendix is normal. Scattered stool in the colon. There are scattered diverticula of the left colon and sigmoid but no diverticulitis. ABDOMINAL WALL: Small fat-containing umbilical hernia. LYMPH NODES: Normal. VASCULAR: Unremarkable. PELVIC VISCERA: Unremarkable. OSSEOUS STRUCTURES: Unremarkable. IMPRESSION: No acute abnormality CT scan abdomen and pelvis. Assessment/Plan Assessment/Recommendations Assessment: RHONDA - Very confusing. DDx includes AIN vs ATN vs pre-renal azotemia. Based on the history and photographs he showed me of his urine and of the allergic appearing reaction on his skin, I think that AIN is a real possibility. The downside to a course of steroids in this setting seem pretty minimal vs the prospect of complete renal failure requiring dialysis. Even in spite of gastric bypass, he remains morbidly obese - I think that a dose of 80mg prednisone daily would be reasonable. Drug induced ANCA/SLE could be a possibility although do seem less likely given the hyperacute onset - but serologies can be sent. Should note that ATN is still a real possibility given that he did take NSAID's and he may have had undocumented hypotension, but the treatment would be supportive. Although I don't think that he's pre-renal, we could check a urine sodium and creatinine to evaluate for salt avidity. Additionally, if he's going to remain NPO, he should be on some IVF to prevent volume depletion. I think we can hold off on a renal biopsy for now. Recommendations: -Would start prednisone 80mg daily -Can give ppx H2 jim -Repeat UA with microscopic analysis -UProt, UCr -Debi -MPO/PR3 ANCA -ARIES, dsDNA, anti-histone Ab -OK to cont IVF as you are Please call [phone] with ?'s
[2017-08-05 13:49] VITALS: BP 140/80
[2017-08-05 22:36] VITALS: BP 112/70
[2017-08-06 05:58] VITALS: BP 130/80
[2017-08-06 08:39] LABS: ABSOLUTE BASOPHIL COUNT 0 /CUMM (0.0-0.2); ABSOLUTE EOSINOPHIL COUNT 0 /CUMM (0.0-0.7); ABSOLUTE GRANULOCYTE CT 9.6 /CUMM (1.4-6.5); ABSOLUTE LYMPH COUNT 0.7 /CUMM (1.2-3.4); ABSOLUTE MONOCYTE COUNT 0.8 /CUMM (0.10-0.60); BASOPHIL % 0 % (0.0-2.0); EOSINOPHIL % 0 % (0-5); HEMATOCRIT 35.3 % (42-52); MEAN CORPUSCULAR HGB 31.3 PG (27.0-31.0); MEAN CORPUSCULAR HGB CONC 33.8 G/DL (33.0-37.0); MEAN CORPUSCULAR VOLUME 92.5 FL (80.0-94.0); MEAN PLATELET VOLUME 8.3 FL (7.4-10.4); PLATELET COUNT 187 /CUMM (130-400); RBC DISTRIBUTION WIDTH 13.9 % (11.5-14.5); RED BLOOD CELL CT 3.82 /CUMM (4.70-6.10); WHITE BLOOD CELL COUNT 11.1 /CUMM (4.8-10.8)
--- NOTE | 2017-08-06 08:46 | PN- Housestaff ---
Cindy Flynn 08/06/17 0846: Subjective Follow-up For: Propylene glycol ingestion v/s analgesic nephropathy Elevated amylase and lipase Elevated bilirubin Hyperkalemia Subjective: No complaints or acute events overnight Review of Systems Constitutional: Reports: see HPI. Objective Last 24 Hrs of Vital Signs/I&O Vital Signs Date Time Temp Pulse Resp B/P B/P Pulse O2 O2 Flow FiO2 Mean Ox Delivery Rate 08/06 0558 97.5 56 20 130/80 97 Room Air 08/05 2236 98.4 72 18 112/70 95 08/05 1349 98.3 73 20 140/80 97 Room Air Intake & Output 08/06 1600 08/06 0800 08/06 0000 Intake Total 1500 Output Total 250 Balance 1250 Intake, IV 1200 Intake, Oral 300 Output, Urine 250 Physical Exam General Appearance: Alert, Oriented X3, Cooperative, No Acute Distress Cardiovascular: Regular Rate, Normal S1, Normal S2 Lungs: Clear to Auscultation, Normal Air Movement Abdomen: Normal Bowel Sounds, Soft, No Tenderness Current Medications: Current Medications Sig/Jordon Start time Last Medication Dose Route Stop Time Status Admin Albuterol Sulfate 3 ML Q4P PRN 08/04 2345 DC INH Calcium Gluconate 1 GM ONCE ONE 08/06 0230 DC 08/06 Sodium Chloride 100 ML IV 08/06 0329 0329 Dextrose 25 GM ONCE ONE 08/06 0200 DC 08/06 IV 08/06 0201 0312 Diphenhydramine HCl 25 MG ONCE ONE 08/06 0115 DC 08/06 PO 08/06 0116 0126 Famotidine 20 MG DAILY 08/05 1711 CAN PO Insulin Human Regular 10 UNITS ONCE ONE 08/06 0200 DC 08/06 SC 08/06 0201 0312 Lidocaine 1 PAT DAILY 08/05 1131 AC 08/05 TOP 1325 Loratadine 10 MG ONCE ONE 08/06 0030 DC PO 08/06 0031 Morphine Sulfate 2 MG Q4P PRN 08/04 1500 AC 08/06 IV 0829 Pantoprazole Sodium 40 MG BID 08/04 2100 AC 08/06 IV 0922 Prednisone 80 MG DAILY 08/05 1315 AC 08/06 PO 0922 Prednisone 20 MG DAILY 08/05 0900 DC 08/05 PO 08/07 0901 1002 Sodium Chloride 1,000 ML Q6H 08/04 2100 AC 08/06 IV 0922 Sodium Polystyrene 60 ML ONCE ONE 08/06 0200 DC 08/06 Sulfonate PO 08/06 0201 0329 Last 24 Hrs of Lab/Suresh Results Last 24 Hrs of Labs/Mics: Laboratory Tests 08/06/17 0705: Ref Lab Test Result Pending 08/06/17 0705: ARIES Titer Pending, Anti-Nuclear Antibody Pending, Ref Lab Test Result Pending 08/06/17 0705: Anion Gap 11, Estimated GFR 9 L, BUN/Creatinine Ratio 7.2, CBC w Diff NO MAN DIFF REQ, RBC 3.82 L, MCV 92.5, MCH 31.3 H, MCHC 33.8, RDW 13.9, MPV 8.3, Gran % 86.1 H, Lymphocytes % 6.6 L, Monocytes % 7.3, Eosinophils % 0, Basophils % 0 , Absolute Granulocytes 9.6 H, Absolute Lymphocytes 0.7 L, Absolute Monocytes 0.8 H, Absolute Eosinophils 0, Absolute Basophils 0, ANCA Pending, Ref Lab Test Result Pending 08/06/17 0000: Anion Gap 13, Estimated GFR 10 L, BUN/Creatinine Ratio 7.2 08/05/17 1820: Anion Gap 13, Estimated GFR 11 L, BUN/Creatinine Ratio 8.0 08/05/17 1610: Urine Color YEL, Urine Clarity HAZY H, Urine pH 6.5, Ur Specific [place] 1.010, Urine Protein 100 H, Urine Ketones NEG, Urine Nitrite NEG, Urine Bilirubin NEG, Urine Urobilinogen 0.2, Ur Leukocyte Esterase NEG, Ur Microscopic SEDIMENT EXAMINED, Urine RBC 1-3, Urine WBC 1-3 H, Ur Epithelial Cells FEW, Urine Hemoglobin LARGE H, Urine Glucose NEG 08/05/17 1610: Ur Random Creatinine 26.7, Ur Random Sodium 42, Ur Random Potassium 3.2, Fraction Sodium Excret 4.6 H Assessment/Plan Assessment: Patient is a 41-year-old male past medical history of cholecystectomy, 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 Problem list: #Elevated amylase and lipase 2/2 acute pancreatits vs due to ?Propylene glycol ingestion (Serum Osm WNL) #Elevated bilirubin #Leukocytosis - most likely reactive #RHONDA - 2/2 ATN (due to NSAID ingestion, UA positive for granular casts) vs AIN ( 2/2 to NSAIDS with noted rash) vs ?toxic ingestion (propylene glycol contents in detergent) #Hyperkalemia Plan: * Await ANCA, ARIES for possible drug-induced SLE * Await 24h Urine Protein * Continue IV fluids 150 cc/h * Strict intake output * Monitor Cr 1.2>>>6.9 * Repeat BEP for 6 pm for hyperkalemia (K 5.5>>5.3) - given Calcium gluc, Kaexylate, 10U insulin overnight * Continue IV pantoprazole 40 mg IV twice daily * Continue Prednisone 80 mg as per Nephro * Stool for occult blood * Aprpeciate GI recommendations * Endoscopy per GI pending in 1-2 days * Appreciate Nephro recommendations CODE STATUS-full code Diet-Full liquid DVT prophylaxis-ALPS Problem List: 1. Pancreatitis 2. Allergic reaction Pain Ratin Pain Location: Abdomen Pain Goal: Pain 4 or less Pain Plan: Morphine Tomorrow's Labs & Rationales: CBC, BEP Emiliano CHESTER,[facility] 08/06/17 1142: Attending MD Review Statement Attending Statement Attending MD Statement: examined this patient, discuss w/resident/PA/RADIO RECORDER, agreed w/resident/PA/RADIO RECORDER, reviewed EMR data (avail), discussed with nursing, discussed with case mgmt, reviewed images, amended to note Attending Assessment/Plan: 41-year-old obese male with PMH significant for cholecystectomy, gastric bypass surgery in 2003 complicated by ? Autoimmune reaction, needed hospital admission treated by prednisone and umbilical hernia undewent Laparoscopic hernia repair, history of diabetes not on medication presented with chief complaints of shortness of breath urticaria after ingestion of Advil mixed with chemical detergent. He was found to have elevated amylase and lipase 2/2 acute pancreatits vs due to ?Propylene glycol ingestion (Serum Osm WNL), Elevated bilirubin and RHONDA ( acute tubular necrosis ) with granular casts in the urine. Etiology is still un determined at this point. Nephrology consult appreciated recommended to continue with supportive treatment and would consider hemodialysis if patient's renal functions continues to deteriorate. Patient not willing to go for hemodialysis and would rather be treated conservatively. Will keep the patient on supportive treatmwnt with IV fluids 150 cc/h. GI consulted and would consider endoscopy in the next 24-48 hours, agrees with IV Protonix. Follow further recommendations from director of accounts payable if patient would be considered for hemodialysis, in that case he would need to hemodialysis catheter placement by the IR.
[2017-08-06 09:21] LABS: GRANULOCYTE % 86.1 % (42.2-75.2)
--- NOTE | 2017-08-06 13:12 | PN- Att Addend ---
Attending Addendum Attending Brief Note Discussed with pump house technician Will assume care from am per pts's wishes
[2017-08-06 14:48] VITALS: BP 140/70
--- NOTE | 2017-08-06 15:06 | PN- Nephrology ---
Assessment/Plan Nephrology Assessment: RHONDA - Very confusing. DDx includes AIN vs ATN. Based on the history and photographs he showed me of his urine and of the allergic appearing reaction on his skin, I think that AIN is a real possibility. He has been started on high dose daily prednisone. Drug induced ANCA/SLE could be a possibility although do seem less likely given the hyperacute onset - but serologies have been sent. Should note that ATN is still a real possibility given that he did take NSAID's and he may have had undocumented hypotension, but the treatment would be supportive. A renal biopsy may still be a consideration although I am not clear at this time how it would change management administrator. The patient and I spoke in detail that he may need to start dialysis in the next few days depending on the trajectory of his kidney function. Non-anion gap metabolic acidosis - 2/2 renal failure and administration of NS. At this point, can d/c IVF but would start supplemental bicarb. Suggestion: -Prednisone 80mg daily -OK to cont PPI -f/u 24hr urine for protein -MPO/PR3 ANCA -ARIES, dsDNA, anti-histone Ab -Stop supplemental IVF -Start sodium bicarb 1300mg BID -Told him to only drink free water to thirst - not to overhydrate Please call [phone] with ?'s Subjective Subjective: Reports episode of pruritis overnight SCr up to 6.9 K 5.3 Bicarb 17 Continues on IVF Drinking a lot of water - Na 137 ARIES and ANCA pending 600cc UOP yesterday - 3.5L in's Not SOB Objective Vital Signs and I&Os Vital Signs Date Time Temp Pulse Resp B/P B/P Pulse O2 O2 Flow FiO2 Mean Ox Delivery Rate 08/06 1448 98.0 76 18 140/70 98 Room Air 08/06 0558 97.5 56 20 130/80 97 Room Air 08/05 2236 98.4 72 18 112/70 95 Intake & Output 08/06 1600 08/06 0400 08/05 04008/04 040 Intake Total 1550 1500 2060 1060 20 Output Total 400 250 350 700 Balance 1150 1250 1710 360 20 Intake, IV 450 1200 1200 1000 Intake, Oral 1100 300 860 60 20 Number 1 Bowel Movements Output, Urine 400 250 350 700 Patient 263 lb 250 lb Weight Weight Bed scale Reported by Patient Measurement Method Physical Exam: Gen - NAD HEENT - supple CV - RRR, no m/r/g Chest - clear, no w/r/r Abd - soft, NTND Ext - warm, no edema Neuro - AOX3, grossly nonfocal Current Medications: Current Medications Sig/Jordon Start time Last Medication Dose Route Stop Time Status Admin Albuterol Sulfate 3 ML Q4P PRN 08/04 2345 DC INH Calcium Gluconate 1 GM ONCE ONE 08/06 0230 DC 08/06 Sodium Chloride 100 ML IV 08/06 0329 0329 Dextrose 25 GM ONCE ONE 08/06 0200 DC 08/06 IV 08/06 0201 0312 Diphenhydramine HCl 25 MG ONCE ONE 08/06 0115 DC 08/06 PO 08/06 0116 0126 Famotidine 20 MG DAILY 08/05 1711 CAN PO Insulin Human Regular 10 UNITS ONCE ONE 08/06 0200 DC 08/06 SC 08/06 0201 0312 Lidocaine 1 PAT DAILY 08/05 1131 AC 08/05 TOP 1325 Loratadine 10 MG ONCE ONE 08/06 0030 DC PO 08/06 0031 Morphine Sulfate 2 MG Q4P PRN 08/04 1500 AC 08/06 IV 0829 Pantoprazole Sodium 40 MG BID 08/04 2100 AC 08/06 IV 0922 Prednisone 80 MG DAILY 08/05 1315 AC 08/06 PO 0922 Sodium Chloride 1,000 ML Q6H 08/04 2100 AC 08/06 IV 1300 Sodium Polystyrene 60 ML ONCE ONE 08/06 0200 DC 08/06 Sulfonate PO 08/06 020 0329 Results Pertinent Lab Results: Laboratory Tests 08/06 08/06 08/06 0705 0705 0705 Chemistry Sodium (137 - 145 mmol/L) 137 Potassium (3.5 - 5.1 mmol/L) 5.3 H Chloride (98 - 107 mmol/L) 109 H Carbon Dioxide (22 - 30 mmol/L) 17 L Anion Gap (5 - 16) 11 BUN (9 - 20 mg/dL) 50 H Creatinine (0.7 - 1.2 mg/dL) 6.9 *H Estimated GFR (>60 ml/min) 9 L BUN/Creatinine Ratio (7 - 25 %) 7.2 Hematology CBC w Diff NO MAN DIFF REQ WBC (4.8 - 10.8 /CUMM) 11.1 H RBC (4.70 - 6.10 /CUMM) 3.82 L Hgb (14.0 - 18.0 G/DL) 12.0 L Hct (42 - 52 %) 35.3 L MCV (80.0 - 94.0 FL) 92.5 MCH (27.0 - 31.0 PG) 31.3 H MCHC (33.0 - 37.0 G/DL) 33.8 RDW (11.5 - 14.5 %) 13.9 Plt Count (130 - 400 /CUMM) 187 MPV (7.4 - 10.4 FL) 8.3 Gran % (42.2 - 75.2 %) 86.1 H Lymphocytes % (20.5 - 51.1 %) 6.6 L Monocytes % (1.7 - 9.3 %) 7.3 Eosinophils % (0 - 5 %) 0 Basophils % (0.0 - 2.0 %) 0 Absolute Granulocytes (1.4 - 6.5 /CUMM) 9.6 H Absolute Lymphocytes (1.2 - 3.4 /CUMM) 0.7 L Absolute Monocytes (0.10 - 0.60 /CUMM) 0.8 H Absolute Eosinophils (0.0 - 0.7 /CUMM) 0 Absolute Basophils (0.0 - 0.2 /CUMM) 0 Immunology ARIES Titer Pending Anti-Nuclear Antibody Pending ANCA Pending Miscellaneous Ref Lab Test Result Pending Ref Lab Test Result Pending Pending 08/06 08/05 08/05 0000 1820 1610 Chemistry Sodium (137 - 145 mmol/L) 137 135 L Potassium (3.5 - 5.1 mmol/L) 5.5 H 5.5 H Chloride (98 - 107 mmol/L) 109 H 108 H Carbon Dioxide (22 - 30 mmol/L) 15 L 14 L Anion Gap (5 - 16) 13 13 BUN (9 - 20 mg/dL) 46 H 44 H Creatinine (0.7 - 1.2 mg/dL) 6.4 *H 5.5 *H Estimated GFR (>60 ml/min) 10 L 11 L BUN/Creatinine Ratio (7 - 25 %) 7.2 8.0 Urines Urine Color (YEL,AMB,STR) YEL Urine Clarity (CLEAR) HAZY H Urine pH (5.0 - 8.0) 6.5 Ur Specific [place] (1.001 - 1.035) 1.010 Urine Protein (NEG,<30 MG/DL) 100 H Urine Ketones (NEG) NEG Urine Nitrite (NEG) NEG Urine Bilirubin (NEG) NEG Urine Urobilinogen (0.1 - 1.0 EU/dl) 0.2 Ur Leukocyte Esterase (NEG) NEG Ur Microscopic SEDIMENT EXAMINED Urine RBC (0 - 5 /HPF) 1-3 Urine WBC (0 - 2 /HPF) 1-3 H Ur Epithelial Cells (NONE,FEW) FEW Urine Hemoglobin (NEG) LARGE H Urine Glucose (N MG/DL) NEG 08/05 08/05 08/05 1610 1138 0607 Chemistry Sodium (137 - 145 mmol/L) 138 Potassium (3.5 - 5.1 mmol/L) 3.9 Chloride (98 - 107 mmol/L) 107 Carbon Dioxide (22 - 30 mmol/L) 20 L Anion Gap (5 - 16) 11 BUN (9 - 20 mg/dL) 38 H Creatinine (0.7 - 1.2 mg/dL) 4.0 H Estimated GFR (>60 ml/min) 17 L BUN/Creatinine Ratio (7 - 25 %) 9.5 Phosphorus (2.5 - 4.5 mg/dL) 3.9 Magnesium (1.6 - 2.3 mg/dL) 1.8 Total Bilirubin (0.2 - 1.3 mg/dL) 0.8 Direct Bilirubin (< 0.4 mg/dL) 0.2 AST (17 - 59 U/L) 34 ALT (21 - 72 U/L) 38 Alkaline Phosphatase (< 127 U/L) 51 Total Protein (6.3 - 8.2 g/dL) 5.8 L Albumin (3.5 - 5.0 g/dL) 3.4 L Amylase (30 - 110 U/L) 50 Lipase (23 - 300 U/L) 68 Hematology CBC w Diff NO MAN DIFF REQ WBC (4.8 - 10.8 /CUMM) 13.7 H RBC (4.70 - 6.10 /CUMM) 4.31 L Hgb (14.0 - 18.0 G/DL) 13.4 L Hct (42 - 52 %) 39.3 L MCV (80.0 - 94.0 FL) 91.2 MCH (27.0 - 31.0 PG) 31.1 H MCHC (33.0 - 37.0 G/DL) 34.1 RDW (11.5 - 14.5 %) 13.7 Plt Count (130 - 400 /CUMM) 189 MPV (7.4 - 10.4 FL) 8.6 Gran % (42.2 - 75.2 %) 81.1 H Lymphocytes % (20.5 - 51.1 %) 10.1 L Monocytes % (1.7 - 9.3 %) 8.4 Eosinophils % (0 - 5 %) 0.2 Basophils % (0.0 - 2.0 %) 0.2 Absolute Granulocytes (1.4 - 6.5 /CUMM) 11.1 H Absolute Lymphocytes (1.2 - 3.4 /CUMM) 1.4 Absolute Monocytes (0.10 - 0.60 /CUMM) 1.1 H Absolute Eosinophils (0.0 - 0.7 /CUMM) 0 Absolute Basophils (0.0 - 0.2 /CUMM) 0 Urines Urine Color Cancelled Urine Clarity Cancelled Urine pH Cancelled Ur Specific [place] Cancelled Urine Protein Cancelled Urine Ketones Cancelled Urine Nitrite Cancelled Urine Bilirubin Cancelled Urine Urobilinogen Cancelled Ur Leukocyte Esterase Cancelled Ur Microscopic Cancelled Urine Hemoglobin Cancelled Ur Random Creatinine (mg/dL) 26.7 Ur Random Sodium (30 - 90 mmol/L) 42 Ur Random Potassium (mmol/L) 3.2 Fraction Sodium Excret (<1% %) 4.6 H Urine Glucose Cancelled 08/04 08/04 08/04 08/04 1515 1515 1205 0927 Chemistry Sodium (137 - 145 mmol/L) 135 L Potassium (3.5 - 5.1 mmol/L) 4.6 Chloride (98 - 107 mmol/L) 104 Carbon Dioxide (22 - 30 mmol/L) 20 L Anion Gap (5 - 16) 11 BUN (9 - 20 mg/dL) 29 H Creatinine (0.7 - 1.2 mg/dL) 2.4 H Estimated GFR (>60 ml/min) 30 L BUN/Creatinine Ratio (7 - 25 %) 12.1 Serum Osmolality (285 - 295 MOSM/KG) Cancelled 293 Toxicology Methadone Screen Cancelled Barbiturate Screen Cancelled Ur Phencyclidine Scrn Cancelled Amphetamines Screen Cancelled U Benzodiazepines Scrn Cancelled Urine Cocaine Screen Cancelled Urine Cannabis Screen Cancelled Urines Urine Osmolality (300 - 1000 MOSM/KG) 292 L 08/04 08/04 0957 0908 Chemistry Sodium (137 - 145 mmol/L) 138 Potassium (3.5 - 5.1 mmol/L) 3.8 Chloride (98 - 107 mmol/L) 107 Carbon Dioxide (22 - 30 mmol/L) 20 L Anion Gap (5 - 16) 11 BUN (9 - 20 mg/dL) 24 H Creatinine (0.7 - 1.2 mg/dL) 1.6 H Estimated GFR (>60 ml/min) 48 L BUN/Creatinine Ratio (7 - 25 %) 15.0 Glucose (65 - 99 mg/dL) 154 H Lactic Acid (0.7 - 2.1 mmol/L) 1.2 Calcium (8.4 - 10.2 mg/dL) 7.7 L Total Bilirubin (0.2 - 1.3 mg/dL) 2.0 H Direct Bilirubin (< 0.4 mg/dL) 0.6 H AST (17 - 59 U/L) 82 H ALT (21 - 72 U/L) 42 Alkaline Phosphatase (< 127 U/L) 42 Creatine Kinase (55 - 170 U/L) 96 Troponin I (<0.11 ng/ml) < 0.01 Total Protein (6.3 - 8.2 g/dL) 5.8 L Albumin (3.5 - 5.0 g/dL) 3.3 L Amylase (30 - 110 U/L) 106 Lipase (23 - 300 U/L) 522 H Hematology CBC w Diff NO MAN DIFF REQ WBC (4.8 - 10.8 /CUMM) 14.9 H RBC (4.70 - 6.10 /CUMM) 4.30 L Hgb (14.0 - 18.0 G/DL) 13.3 L Hct (42 - 52 %) 39.4 L MCV (80.0 - 94.0 FL) 91.7 MCH (27.0 - 31.0 PG) 31.0 MCHC (33.0 - 37.0 G/DL) 33.8 RDW (11.5 - 14.5 %) 13.5 Plt Count (130 - 400 /CUMM) 212 MPV (7.4 - 10.4 FL) 7.9 Gran % (42.2 - 75.2 %) 93.1 H Lymphocytes % (20.5 - 51.1 %) 4.2 L Monocytes % (1.7 - 9.3 %) 2.7 Eosinophils % (0 - 5 %) 0 Basophils % (0.0 - 2.0 %) 0 Absolute Granulocytes (1.4 - 6.5 /CUMM) 13.8 H Absolute Lymphocytes (1.2 - 3.4 /CUMM) 0.6 L Absolute Monocytes (0.10 - 0.60 /CUMM) 0.4 Absolute Eosinophils (0.0 - 0.7 /CUMM) 0 Absolute Basophils (0.0 - 0.2 /CUMM) 0 Serology Hepatitis A IgM Ab (NONREACTIVE) NONREACTIVE Hep Bs Antigen (NONREACTIVE) NONREACTIVE Hep B Core IgM Ab Conf (NONREACTIVE) NONREACTIVE Hepatitis C Antibody (NONREACTIVE) NONREACTIVE Toxicology Urine Opiates Screen (>2000 NG/ML) < 100 Methadone Screen (>300 NG/ML) 68 Barbiturate Screen (>200 NG/ML) < 60 Ur Phencyclidine Scrn (>25 NG/ML) < 6.00 Amphetamines Screen (>1000 NG/ML) 104 U Benzodiazepines Scrn (>200 NG/ML) < 85 Urine Cocaine Screen (>300 NG/ML) < 50 Urine Cannabis Screen (>50 NG/ML) < 5.00 Serum Alcohol (<10 MG/DL) < 10.0 Acetone Level (NEGATIVE) NEGATIVE Urines Urinalysis HEAVY H Urine Color (YEL,AMB,STR) BROWN H Urine Clarity (CLEAR) CLDY H Urine pH (5.0 - 8.0) 7.0 Ur Specific [place] (1.001 - 1.035) 1.020 Urine Protein (NEG,<30 MG/DL) >=300 H Urine Ketones (NEG) TRACE H Urine Nitrite (NEG) POS H Urine Bilirubin (NEG) NEG@ICTO Urine Urobilinogen (0.1 - 1.0 EU/dl) 2.0 H Ur Leukocyte Esterase (NEG) TRACE H Ur Microscopic SEDIMENT EXAMINED Urine WBC (0 - 2 /HPF) 1-3 H Ur Epithelial Cells (NONE,FEW) MOD H Urine Bacteria (NEG/NONE) RARE H Granular Casts (NONE /LPF) FEW H Urine Mucus (FEW,NONE) FEW Micro UA Comment MORE INFO: H Urine Hemoglobin (NEG) LARGE H Urine Glucose (N MG/DL) 100 H 08/04 08/04 0430 0302 Chemistry Sodium (137 - 145 mmol/L) 137 Potassium (3.5 - 5.1 mmol/L) 3.3 L Chloride (98 - 107 mmol/L) 104 Carbon Dioxide (22 - 30 mmol/L) 22 Anion Gap (5 - 16) 11 BUN (9 - 20 mg/dL) 20 Creatinine (0.7 - 1.2 mg/dL) 1.2 Estimated GFR (>60 ml/min) > 60 BUN/Creatinine Ratio (7 - 25 %) 16.7 Glucose (65 - 99 mg/dL) 150 H Calcium (8.4 - 10.2 mg/dL) 8.5 Total Bilirubin (0.2 - 1.3 mg/dL) 4.2 H Direct Bilirubin (< 0.4 mg/dL) 1.6 H AST (17 - 59 U/L) 86 H ALT (21 - 72 U/L) 38 Alkaline Phosphatase (< 127 U/L) 50 Troponin I (<0.11 ng/ml) 0.01 Total Protein (6.3 - 8.2 g/dL) 6.5 Albumin (3.5 - 5.0 g/dL) 3.8 Amylase (30 - 110 U/L) 176 H Lipase (23 - 300 U/L) 1577 H Hematology CBC w Diff NO MAN DIFF REQ WBC (4.8 - 10.8 /CUMM) 12.0 H RBC (4.70 - 6.10 /CUMM) 4.94 Hgb (14.0 - 18.0 G/DL) 15.4 Hct (42 - 52 %) 45.6 MCV (80.0 - 94.0 FL) 92.3 MCH (27.0 - 31.0 PG) 31.1 H MCHC (33.0 - 37.0 G/DL) 33.7 RDW (11.5 - 14.5 %) 14.1 Plt Count (130 - 400 /CUMM) 245 MPV (7.4 - 10.4 FL) 8.0 Gran % (42.2 - 75.2 %) 65.0 Lymphocytes % (20.5 - 51.1 %) 28.7 Monocytes % (1.7 - 9.3 %) 3.1 Eosinophils % (0 - 5 %) 3.1 Basophils % (0.0 - 2.0 %) 0.1 Absolute Granulocytes (1.4 - 6.5 /CUMM) 7.8 H Absolute Lymphocytes (1.2 - 3.4 /CUMM) 3.4 Absolute Monocytes (0.10 - 0.60 /CUMM) 0.4 Absolute Eosinophils (0.0 - 0.7 /CUMM) 0.4 Absolute Basophils (0.0 - 0.2 /CUMM) 0 Toxicology Salicylates (0 - 20.0 mg/dL) < 1.0 Acetaminophen (10.0 - 30.0 ug/mL) < 10.0 L Imaging/Other Studies: EXAM TYPE: CAT - CT ABD & PELVIS W/O IV CONTRAS EXAMINATION: CT ABDOMEN AND PELVIS WITHOUT CONTRAST CLINICAL INFORMATION: Mid epigastric pain. COMPARISON: None TECHNIQUE: Multidetector volumetric imaging was performed from the superior aspect of the liver through the pubic symphysis. Sagittal and coronal reformatted images were obtained on the technologist's workstation. DLP: 1517.87 mGy-cm FINDINGS: LUNG BASES: The visualized lung bases are unremarkable. LIVER, GALLBLADDER, AND BILIARY TREE: The liver is normal in size, shape, and attenuation. No focal hepatic lesion or biliary ductal dilatation is present. Status post cholecystectomy. No bile duct dilatation. PANCREAS: Unremarkable. SPLEEN: Unremarkable. ADRENAL GLANDS: Unremarkable. KIDNEYS AND URETERS: The kidneys are normal in size, shape, and attenuation. No hydronephrosis, hydroureter, or calculi seen. No perinephric stranding. BLADDER: Unremarkable. GASTROINTESTINAL TRACT: Small hiatal hernia. Status post gastric bypass surgery with surgical sutures of the stomach and proximal small bowel loops. No abnormally dilated bowel. No bowel obstruction. No bowel wall thickening or edema. The appendix is normal. Scattered stool in the colon. There are scattered diverticula of the left colon and sigmoid but no diverticulitis. ABDOMINAL WALL: Small fat-containing umbilical hernia. LYMPH NODES: Normal. VASCULAR: Unremarkable. PELVIC VISCERA: Unremarkable. OSSEOUS STRUCTURES: Unremarkable. IMPRESSION: No acute abnormality CT scan abdomen and pelvis.
--- NOTE | 2017-08-06 16:21 | PN- Gastroenterology ---
Assessment/Plan GI Assessment/Recommendations: ASSESSMENT: 1. Acute Kidney Injury 2. Lower Abdominal Pain 3. History of Urticarial Lesions with ? Hyperpigmentation -- Mr. Fernandez on admission reported that he had had urticaria which she disappeared and left hyperpigmented spots. This is somewhat unusual. I suspect that he has some unusual rheumatologic disease and that the ingestion of Advil may be a red jacome that is coincident with this presentation. Further the epigastric pain, nausea, and vomiting I also do not believe are central components that are contributing to his current illness. RECOMMENDATIONS: 1. Await ARIES and p-ANCA already ordered by nephrology 2. Suggest rheumatology consult if available 3. Would obtain complement (C3 and C4) as well as C1 esterase although this is a somewhat unusual presentation for hereditary angioedema 4. At this time I see no wall for GI or for urgent endoscopy. We will follow at a distance. However do not hesitate to contact us should the need for more immediate involvement be required. Subjective Subjective: Patient reports another episode of urticaria last night. He is tolerating liquid diet. Was given Kayexalate for increased serum potassium. Had loose stool this morning without blood. Still complains of suprapubic lower abdominal discomfort. No epigastric pain, nausea, or vomiting. Objective Vital Signs and I&Os Vital Signs Date Time Temp Pulse Resp B/P B/P Pulse O2 O2 Flow FiO2 Mean Ox Delivery Rate 08/06 1448 98.0 76 18 140/70 98 Room Air 08/06 0558 97.5 56 20 130/80 97 Room Air 08/05 2236 98.4 72 18 112/70 95 Intake & Output 08/06 1600 08/06 0400 08/05 1600 08/05 0400 08/04 1600 08/04 0400 Intake Total 1550 1500 2060 1060 20 Output Total 400 250 350 700 Balance 1150 1250 1710 360 20 Intake, IV 450 1200 1200 1000 Intake, Oral 1100 300 860 60 20 Number 1 Bowel Movements Output, Urine 400 250 350 700 Patient 263 lb 250 lb Weight Weight Bed scale Reported by Patient Measurement Method Physical Exam General Appearance: well developed/nourished, no apparent distress, comfortable Head: atraumatic, normal appearance Respiratory: lungs clear Cardiovascular: regular rate/rhythm Abdomen: normal bowel sounds, soft, non-tender, no organomegaly Neurologic/Psychiatric: oriented x 3, normal mood/affect Skin: intact, no urticarial lesions seen presently. Current Medications: Current Medications Sig/Jordon Start time Last Medication Dose Route Stop Time Status Admin Albuterol Sulfate 3 ML Q4P PRN 08/04 2345 DC INH Calcium Gluconate 1 GM ONCE ONE 08/06 0230 DC 08/06 Sodium Chloride 100 ML IV 08/06 0329 0329 Dextrose 25 GM ONCE ONE 08/06 0200 DC 08/06 IV 08/06 0201 0312 Diphenhydramine HCl 25 MG ONCE ONE 08/06 0115 DC 08/06 PO 08/06 0116 0126 Famotidine 20 MG DAILY 08/05 1711 CAN PO Insulin Human Regular 10 UNITS ONCE ONE 08/06 0200 DC 08/06 SC 08/06 020 0312 Lidocaine 1 PAT DAILY 08/05 1131 AC 08/05 TOP 1325 Loratadine 10 MG ONCE ONE 08/06 0030 DC PO 08/06 0031 Morphine Sulfate 2 MG Q4P PRN 08/04 1500 AC 08/06 IV 0829 Pantoprazole Sodium 40 MG BID 08/04 2100 AC 08/06 IV 0922 Prednisone 80 MG DAILY 08/05 1315 AC 08/06 PO 0922 Sodium Chloride 1,000 ML Q6H 08/04 2100 AC 08/06 IV 1300 Sodium Polystyrene 60 ML ONCE ONE 08/06 0200 DC 08/06 Sulfonate PO 08/06 020 0329 Results Pertinent Lab Results: Laboratory Tests 08/06 08/06 08/06 0705 0705 0705 Chemistry Sodium (137 - 145 mmol/L) 137 Potassium (3.5 - 5.1 mmol/L) 5.3 H Chloride (98 - 107 mmol/L) 109 H Carbon Dioxide (22 - 30 mmol/L) 17 L Anion Gap (5 - 16) 11 BUN (9 - 20 mg/dL) 50 H Creatinine (0.7 - 1.2 mg/dL) 6.9 *H Estimated GFR (>60 ml/min) 9 L BUN/Creatinine Ratio (7 - 25 %) 7.2 Hematology CBC w Diff NO MAN DIFF REQ WBC (4.8 - 10.8 /CUMM) 11.1 H RBC (4.70 - 6.10 /CUMM) 3.82 L Hgb (14.0 - 18.0 G/DL) 12.0 L Hct (42 - 52 %) 35.3 L MCV (80.0 - 94.0 FL) 92.5 MCH (27.0 - 31.0 PG) 31.3 H MCHC (33.0 - 37.0 G/DL) 33.8 RDW (11.5 - 14.5 %) 13.9 Plt Count (130 - 400 /CUMM) 187 MPV (7.4 - 10.4 FL) 8.3 Gran % (42.2 - 75.2 %) 86.1 H Lymphocytes % (20.5 - 51.1 %) 6.6 L Monocytes % (1.7 - 9.3 %) 7.3 Eosinophils % (0 - 5 %) 0 Basophils % (0.0 - 2.0 %) 0 Absolute Granulocytes (1.4 - 6.5 /CUMM) 9.6 H Absolute Lymphocytes (1.2 - 3.4 /CUMM) 0.7 L Absolute Monocytes (0.10 - 0.60 /CUMM) 0.8 H Absolute Eosinophils (0.0 - 0.7 /CUMM) 0 Absolute Basophils (0.0 - 0.2 /CUMM) 0 Immunology ARIES Titer Pending Anti-Nuclear Antibody Pending ANCA Pending Miscellaneous Ref Lab Test Result Pending Ref Lab Test Result Pending Pending 08/06 08/05 08/05 0000 1820 1610 Chemistry Sodium (137 - 145 mmol/L) 137 135 L Potassium (3.5 - 5.1 mmol/L) 5.5 H 5.5 H Chloride (98 - 107 mmol/L) 109 H 108 H Carbon Dioxide (22 - 30 mmol/L) 15 L 14 L Anion Gap (5 - 16) 13 13 BUN (9 - 20 mg/dL) 46 H 44 H Creatinine (0.7 - 1.2 mg/dL) 6.4 *H 5.5 *H Estimated GFR (>60 ml/min) 10 L 11 L BUN/Creatinine Ratio (7 - 25 %) 7.2 8.0 Urines Urine Color (YEL,AMB,STR) YEL Urine Clarity (CLEAR) HAZY H Urine pH (5.0 - 8.0) 6.5 Ur Specific Kerens (1.001 - 1.035) 1.010 Urine Protein (NEG,<30 MG/DL) 100 H Urine Ketones (NEG) NEG Urine Nitrite (NEG) NEG Urine Bilirubin (NEG) NEG Urine Urobilinogen (0.1 - 1.0 EU/dl) 0.2 Ur Leukocyte Esterase (NEG) NEG Ur Microscopic SEDIMENT EXAMINED Urine RBC (0 - 5 /HPF) 1-3 Urine WBC (0 - 2 /HPF) 1-3 H Ur Epithelial Cells (NONE,FEW) FEW Urine Hemoglobin (NEG) LARGE H Urine Glucose (N MG/DL) NEG 08/05 08/05 08/05 1610 1138 0607 Chemistry Sodium (137 - 145 mmol/L) 138 Potassium (3.5 - 5.1 mmol/L) 3.9 Chloride (98 - 107 mmol/L) 107 Carbon Dioxide (22 - 30 mmol/L) 20 L Anion Gap (5 - 16) 11 BUN (9 - 20 mg/dL) 38 H Creatinine (0.7 - 1.2 mg/dL) 4.0 H Estimated GFR (>60 ml/min) 17 L BUN/Creatinine Ratio (7 - 25 %) 9.5 Phosphorus (2.5 - 4.5 mg/dL) 3.9 Magnesium (1.6 - 2.3 mg/dL) 1.8 Total Bilirubin (0.2 - 1.3 mg/dL) 0.8 Direct Bilirubin (< 0.4 mg/dL) 0.2 AST (17 - 59 U/L) 34 ALT (21 - 72 U/L) 38 Alkaline Phosphatase (< 127 U/L) 51 Total Protein (6.3 - 8.2 g/dL) 5.8 L Albumin (3.5 - 5.0 g/dL) 3.4 L Amylase (30 - 110 U/L) 50 Lipase (23 - 300 U/L) 68 Hematology CBC w Diff NO MAN DIFF REQ WBC (4.8 - 10.8 /CUMM) 13.7 H RBC (4.70 - 6.10 /CUMM) 4.31 L Hgb (14.0 - 18.0 G/DL) 13.4 L Hct (42 - 52 %) 39.3 L MCV (80.0 - 94.0 FL) 91.2 MCH (27.0 - 31.0 PG) 31.1 H MCHC (33.0 - 37.0 G/DL) 34.1 RDW (11.5 - 14.5 %) 13.7 Plt Count (130 - 400 /CUMM) 189 MPV (7.4 - 10.4 FL) 8.6 Gran % (42.2 - 75.2 %) 81.1 H Lymphocytes % (20.5 - 51.1 %) 10.1 L Monocytes % (1.7 - 9.3 %) 8.4 Eosinophils % (0 - 5 %) 0.2 Basophils % (0.0 - 2.0 %) 0.2 Absolute Granulocytes (1.4 - 6.5 /CUMM) 11.1 H Absolute Lymphocytes (1.2 - 3.4 /CUMM) 1.4 Absolute Monocytes (0.10 - 0.60 /CUMM) 1.1 H Absolute Eosinophils (0.0 - 0.7 /CUMM) 0 Absolute Basophils (0.0 - 0.2 /CUMM) 0 Urines Urine Color Cancelled Urine Clarity Cancelled Urine pH Cancelled Ur Specific Kerens Cancelled Urine Protein Cancelled Urine Ketones Cancelled Urine Nitrite Cancelled Urine Bilirubin Cancelled Urine Urobilinogen Cancelled Ur Leukocyte Esterase Cancelled Ur Microscopic Cancelled Urine Hemoglobin Cancelled Ur Random Creatinine (mg/dL) 26.7 Ur Random Sodium (30 - 90 mmol/L) 42 Ur Random Potassium (mmol/L) 3.2 Fraction Sodium Excret (<1% %) 4.6 H Urine Glucose Cancelled 08/04 08/04 08/04 08/04 1515 1515 1205 0927 Chemistry Sodium (137 - 145 mmol/L) 135 L Potassium (3.5 - 5.1 mmol/L) 4.6 Chloride (98 - 107 mmol/L) 104 Carbon Dioxide (22 - 30 mmol/L) 20 L Anion Gap (5 - 16) 11 BUN (9 - 20 mg/dL) 29 H Creatinine (0.7 - 1.2 mg/dL) 2.4 H Estimated GFR (>60 ml/min) 30 L BUN/Creatinine Ratio (7 - 25 %) 12.1 Serum Osmolality (285 - 295 MOSM/KG) Cancelled 293 Toxicology Methadone Screen Cancelled Barbiturate Screen Cancelled Ur Phencyclidine Scrn Cancelled Amphetamines Screen Cancelled U Benzodiazepines Scrn Cancelled Urine Cocaine Screen Cancelled Urine Cannabis Screen Cancelled Urines Urine Osmolality (300 - 1000 MOSM/KG) 292 L 08/04 08/04 0927 0914 Chemistry Sodium (137 - 145 mmol/L) 138 Potassium (3.5 - 5.1 mmol/L) 3.8 Chloride (98 - 107 mmol/L) 107 Carbon Dioxide (22 - 30 mmol/L) 20 L Anion Gap (5 - 16) 11 BUN (9 - 20 mg/dL) 24 H Creatinine (0.7 - 1.2 mg/dL) 1.6 H Estimated GFR (>60 ml/min) 48 L BUN/Creatinine Ratio (7 - 25 %) 15.0 Glucose (65 - 99 mg/dL) 154 H Lactic Acid (0.7 - 2.1 mmol/L) 1.2 Calcium (8.4 - 10.2 mg/dL) 7.7 L Total Bilirubin (0.2 - 1.3 mg/dL) 2.0 H Direct Bilirubin (< 0.4 mg/dL) 0.6 H AST (17 - 59 U/L) 82 H ALT (21 - 72 U/L) 42 Alkaline Phosphatase (< 127 U/L) 42 Creatine Kinase (55 - 170 U/L) 96 Troponin I (<0.11 ng/ml) < 0.01 Total Protein (6.3 - 8.2 g/dL) 5.8 L Albumin (3.5 - 5.0 g/dL) 3.3 L Amylase (30 - 110 U/L) 106 Lipase (23 - 300 U/L) 522 H Hematology CBC w Diff NO MAN DIFF REQ WBC (4.8 - 10.8 /CUMM) 14.9 H RBC (4.70 - 6.10 /CUMM) 4.30 L Hgb (14.0 - 18.0 G/DL) 13.3 L Hct (42 - 52 %) 39.4 L MCV (80.0 - 94.0 FL) 91.7 MCH (27.0 - 31.0 PG) 31.0 MCHC (33.0 - 37.0 G/DL) 33.8 RDW (11.5 - 14.5 %) 13.5 Plt Count (130 - 400 /CUMM) 212 MPV (7.4 - 10.4 FL) 7.9 Gran % (42.2 - 75.2 %) 93.1 H Lymphocytes % (20.5 - 51.1 %) 4.2 L Monocytes % (1.7 - 9.3 %) 2.7 Eosinophils % (0 - 5 %) 0 Basophils % (0.0 - 2.0 %) 0 Absolute Granulocytes (1.4 - 6.5 /CUMM) 13.8 H Absolute Lymphocytes (1.2 - 3.4 /CUMM) 0.6 L Absolute Monocytes (0.10 - 0.60 /CUMM) 0.4 Absolute Eosinophils (0.0 - 0.7 /CUMM) 0 Absolute Basophils (0.0 - 0.2 /CUMM) 0 Serology Hepatitis A IgM Ab (NONREACTIVE) NONREACTIVE Hep Bs Antigen (NONREACTIVE) NONREACTIVE Hep B Core IgM Ab Conf (NONREACTIVE) NONREACTIVE Hepatitis C Antibody (NONREACTIVE) NONREACTIVE Toxicology Urine Opiates Screen (>2000 NG/ML) < 100 Methadone Screen (>300 NG/ML) 68 Barbiturate Screen (>200 NG/ML) < 60 Ur Phencyclidine Scrn (>25 NG/ML) < 6.00 Amphetamines Screen (>1000 NG/ML) 104 U Benzodiazepines Scrn (>200 NG/ML) < 85 Urine Cocaine Screen (>300 NG/ML) < 50 Urine Cannabis Screen (>50 NG/ML) < 5.00 Serum Alcohol (<10 MG/DL) < 10.0 Acetone Level (NEGATIVE) NEGATIVE Urines Urinalysis HEAVY H Urine Color (YEL,AMB,STR) BROWN H Urine Clarity (CLEAR) CLDY H Urine pH (5.0 - 8.0) 7.0 Ur Specific Kerens (1.001 - 1.035) 1.020 Urine Protein (NEG,<30 MG/DL) >=300 H Urine Ketones (NEG) TRACE H Urine Nitrite (NEG) POS H Urine Bilirubin (NEG) NEG@ICTO Urine Urobilinogen (0.1 - 1.0 EU/dl) 2.0 H Ur Leukocyte Esterase (NEG) TRACE H Ur Microscopic SEDIMENT EXAMINED Urine WBC (0 - 2 /HPF) 1-3 H Ur Epithelial Cells (NONE,FEW) MOD H Urine Bacteria (NEG/NONE) RARE H Granular Casts (NONE /LPF) FEW H Urine Mucus (FEW,NONE) FEW Micro UA Comment MORE INFO: H Urine Hemoglobin (NEG) LARGE H Urine Glucose (N MG/DL) 100 H 08/04 08/04 0430 0302 Chemistry Sodium (137 - 145 mmol/L) 137 Potassium (3.5 - 5.1 mmol/L) 3.3 L Chloride (98 - 107 mmol/L) 104 Carbon Dioxide (22 - 30 mmol/L) 22 Anion Gap (5 - 16) 11 BUN (9 - 20 mg/dL) 20 Creatinine (0.7 - 1.2 mg/dL) 1.2 Estimated GFR (>60 ml/min) > 60 BUN/Creatinine Ratio (7 - 25 %) 16.7 Glucose (65 - 99 mg/dL) 150 H Calcium (8.4 - 10.2 mg/dL) 8.5 Total Bilirubin (0.2 - 1.3 mg/dL) 4.2 H Direct Bilirubin (< 0.4 mg/dL) 1.6 H AST (17 - 59 U/L) 86 H ALT (21 - 72 U/L) 38 Alkaline Phosphatase (< 127 U/L) 50 Troponin I (<0.11 ng/ml) 0.01 Total Protein (6.3 - 8.2 g/dL) 6.5 Albumin (3.5 - 5.0 g/dL) 3.8 Amylase (30 - 110 U/L) 176 H Lipase (23 - 300 U/L) 1577 H Hematology CBC w Diff NO MAN DIFF REQ WBC (4.8 - 10.8 /CUMM) 12.0 H RBC (4.70 - 6.10 /CUMM) 4.94 Hgb (14.0 - 18.0 G/DL) 15.4 Hct (42 - 52 %) 45.6 MCV (80.0 - 94.0 FL) 92.3 MCH (27.0 - 31.0 PG) 31.1 H MCHC (33.0 - 37.0 G/DL) 33.7 RDW (11.5 - 14.5 %) 14.1 Plt Count (130 - 400 /CUMM) 245 MPV (7.4 - 10.4 FL) 8.0 Gran % (42.2 - 75.2 %) 65.0 Lymphocytes % (20.5 - 51.1 %) 28.7 Monocytes % (1.7 - 9.3 %) 3.1 Eosinophils % (0 - 5 %) 3.1 Basophils % (0.0 - 2.0 %) 0.1 Absolute Granulocytes (1.4 - 6.5 /CUMM) 7.8 H Absolute Lymphocytes (1.2 - 3.4 /CUMM) 3.4 Absolute Monocytes (0.10 - 0.60 /CUMM) 0.4 Absolute Eosinophils (0.0 - 0.7 /CUMM) 0.4 Absolute Basophils (0.0 - 0.2 /CUMM) 0 Toxicology Salicylates (0 - 20.0 mg/dL) < 1.0 Acetaminophen (10.0 - 30.0 ug/mL) < 10.0 L
[2017-08-06 21:39] VITALS: BP 122/80
[2017-08-07 06:20] VITALS: BP 120/82
--- NOTE | 2017-08-07 07:21 | PN- Housestaff ---
Subjective Follow-up For: Acute kidney injury possibly secondary due to ATN versus AIN. Subjective: Patient seen and examined at bedside. No overnight events. Patient says he has good urine output since last night. He also commented that his rash has faded away. Patient complains of moderate suprapubic pain radiating to the back. Denies fever, chills, nausea, vomiting. Review of Systems Constitutional: Reports: no symptoms, see HPI. Objective Last 24 Hrs of Vital Signs/I&O Vital Signs Date Time Temp Pulse Resp B/P B/P Pulse O2 O2 Flow FiO2 Mean Ox Delivery Rate 08/07 0620 98.7 63 18 120/82 98 Room Air 08/06 2139 98.0 52 20 122/80 99 Room Air 08/06 1448 98.0 76 18 140/70 98 Room Air Intake & Output 08/07 1600 08/07 0800 08/07 0000 Intake Total 400 1050 Output Total 1100 390 Balance -700 660 Intake, Oral 400 1050 Output, Urine 1100 390 Physical Exam General Appearance: Alert, Oriented X3, Cooperative Cardiovascular: Regular Rate, Normal S1, Normal S2, No Murmurs Lungs: Clear to Auscultation Abdomen: Soft, No Tenderness, No Hepatospenomegaly Neurological: Normal Speech, Strength at 5/5 X4 Ext, Normal Tone, Sensation Intact Extremities: No Cyanosis, No Edema, Normal Pulses Vascular: Normal Pulses Current Medications: Current Medications Sig/Jordon Start time Last Medication Dose Route Stop Time Status Admin Docusate Sodium 100 MG BID 08/07 1057 AC 08/07 PO 1152 Lidocaine 1 PAT Q24H 08/07 2100 AC TOP Lidocaine 1 PAT DAILY 08/05 1131 DC 08/06 TOP 2216 Morphine Sulfate 2 MG Q4P PRN 08/04 1500 AC 08/07 IV 0902 Pantoprazole Sodium 40 MG BID 08/04 2100 AC 08/07 IV 0918 Polyethylene Glycol 17 GM DAILY 08/07 0906 08/07 PO 1151 Prednisone 80 MG DAILY 08/05 1315 AC 08/07 PO 0916 Senna/Docusate Sodium 1 TAB BID 08/07 0906 AC 08/07 PO 0918 Sodium Bicarbonate 1,300 MG BID 08/06 2100 AC 08/07 PO 0917 Sodium Chloride 1,000 ML Q6H 08/04 2100 DC 08/06 IV 1300 Last 24 Hrs of Lab/Suresh Results Last 24 Hrs of Labs/Mics: Laboratory Tests 08/07/17 1145: C-Reactive Prot, Quant Pending 08/07/17 0710: Anion Gap 15, Estimated GFR 8 L, BUN/Creatinine Ratio 8.0, CBC w Diff NO MAN DIFF REQ, RBC 4.11 L, MCV 92.7, MCH 31.3 H, MCHC 33.8, RDW 13.6, MPV 8.4, Gran % 81.2 H, Lymphocytes % 10.2 L, Monocytes % 8.4, Eosinophils % 0.1, Basophils % 0.1, Absolute Granulocytes 11.5 H, Absolute Lymphocytes 1.4, Absolute Monocytes 1.2 H, Absolute Eosinophils 0, Absolute Basophils 0 08/07/17 0600: Complement C3 Pending, Complement C4 Pending, Ref Lab Test Result Pending, Ref Lab Test Result Pending 08/06/17 1854: Anion Gap 15, Estimated GFR 8 L, BUN/Creatinine Ratio 7.5 Assessment/Plan Assessment: Patient is a 41-year-old male past medical history of cholecystectomy, 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 Assessment and plan * Acute kidney injury secondary due to ATN/AIN/ immunological/vasculitis/drug- induced * Suprapubic pain * Leukocytosis * Hyponatremia * Hyperkalemia-resolving * Chronic back pain 1. Acute kidney injury-patient came in with acute renal injury associated with hematuria, rash. Rash and hematuria resolved. Patient still has elevated BUN/ creatinine. Patient had good urine output overnight. We will maintain strict I 's and O's. Hopefully BUN/creatinine creatinine should trend down tomorrow. At this point discussed with the welding specialist who suggested that he doesn't need any renal biopsy or dialysis. The same information was relayed to the patient. To rule out immunological/vasculitis serological markers have been sent. We will follow final reports. Informed Dr. Luna saw weatherization specialist over the phone who suggested to get back to him if the serology reports comes back positive. We will follow his CPK and aldolase. 2. Suprapubic pain-initial CAT scan was negative. Patient complains of suprapubic pain radiating to the back. Pancreatitis ruled out. Patient has chronic back pain, unsure if this is contributing to his abdominal pain. We have added laxatives and if needed we will take a repeat CAT scan. Patient is on morphine for pain. 3. Diet-renal and low carb diet. Widely check aldolase Problem List: 1. Abdominal pain Pain Ratin Pain Location: supra pubic Pubic Pain Goal: Remain pain free Pain Plan: tylenol Tomorrow's Labs & Rationales: cbc,bep
[2017-08-07 08:16] LABS: ABSOLUTE BASOPHIL COUNT 0 /CUMM (0.0-0.2); ABSOLUTE EOSINOPHIL COUNT 0 /CUMM (0.0-0.7); ABSOLUTE GRANULOCYTE CT 11.5 /CUMM (1.4-6.5); ABSOLUTE LYMPH COUNT 1.4 /CUMM (1.2-3.4); ABSOLUTE MONOCYTE COUNT 1.2 /CUMM (0.10-0.60); BASOPHIL % 0.1 % (0.0-2.0); EOSINOPHIL % 0.1 % (0-5); GRANULOCYTE % 81.2 % (42.2-75.2); HEMATOCRIT 38.1 % (42-52); MEAN CORPUSCULAR HGB 31.3 PG (27.0-31.0); MEAN CORPUSCULAR HGB CONC 33.8 G/DL (33.0-37.0); MEAN CORPUSCULAR VOLUME 92.7 FL (80.0-94.0); MEAN PLATELET VOLUME 8.4 FL (7.4-10.4); PLATELET COUNT 195 /CUMM (130-400); RBC DISTRIBUTION WIDTH 13.6 % (11.5-14.5); RED BLOOD CELL CT 4.11 /CUMM (4.70-6.10); WHITE BLOOD CELL COUNT 14.2 /CUMM (4.8-10.8)
--- NOTE | 2017-08-07 09:31 | PN- Pulmonary ---
Subjective HPI/Critical Care Issues: Assuming care Complains of sig suprapubic pain radiating posteriorly Does have sig urine output this am No further rash Did have a bowel movement yesterday after kayexalate Had episode of urticaria per pt before Objective Current Medications: Current Medications Sig/Jordon Start time Last Medication Dose Route Stop Time Status Admin Albuterol Sulfate 3 ML Q4P PRN 08/04 2345 DC INH Lidocaine 1 PAT Q24H 08/07 2100 AC TOP Lidocaine 1 PAT DAILY 08/05 1131 DC 08/06 TOP 2216 Morphine Sulfate 2 MG Q4P PRN 08/04 1500 AC 08/07 IV 0902 Pantoprazole Sodium 40 MG BID 08/04 2100 AC 08/06 IV 2041 Polyethylene Glycol 17 GM DAILY 08/07 09 AC PO Prednisone 80 MG DAILY 08/05 1315 AC 08/06 PO 0922 Senna/Docusate Sodium 1 TAB BID 08/07 09 AC PO Sodium Bicarbonate 1,300 MG BID 08/06 2100 AC 08/06 PO 204 Sodium Chloride 1,000 ML Q6H 08/04 2100 UT 08/06 IV 1300 Laboratory Tests 08/07 08/07 08/06 0710 0600 1854 Chemistry Sodium (137 - 145 mmol/L) 132 L 132 L Potassium (3.5 - 5.1 mmol/L) 4.9 5.2 H Chloride (98 - 107 mmol/L) 103 102 Carbon Dioxide (22 - 30 mmol/L) 14 L 15 L Anion Gap (5 - 16) 15 15 BUN (9 - 20 mg/dL) 63 H 55 H Creatinine (0.7 - 1.2 mg/dL) 7.9 *H 7.3 *H Estimated GFR (>60 ml/min) 8 L 8 L BUN/Creatinine Ratio (7 - 25 %) 8.0 7.5 Hematology CBC w Diff NO MAN DIFF REQ WBC (4.8 - 10.8 /CUMM) 14.2 H RBC (4.70 - 6.10 /CUMM) 4.11 L Hgb (14.0 - 18.0 G/DL) 12.9 L Hct (42 - 52 %) 38.1 L MCV (80.0 - 94.0 FL) 92.7 MCH (27.0 - 31.0 PG) 31.3 H MCHC (33.0 - 37.0 G/DL) 33.8 RDW (11.5 - 14.5 %) 13.6 Plt Count (130 - 400 /CUMM) 195 MPV (7.4 - 10.4 FL) 8.4 Gran % (42.2 - 75.2 %) 81.2 H Lymphocytes % (20.5 - 51.1 %) 10.2 L Monocytes % (1.7 - 9.3 %) 8.4 Eosinophils % (0 - 5 %) 0.1 Basophils % (0.0 - 2.0 %) 0.1 Absolute Granulocytes (1.4 - 6.5 /CUMM) 11.5 H Absolute Lymphocytes (1.2 - 3.4 /CUMM) 1.4 Absolute Monocytes (0.10 - 0.60 /CUMM) 1.2 H Absolute Eosinophils (0.0 - 0.7 /CUMM) 0 Absolute Basophils (0.0 - 0.2 /CUMM) 0 Immunology Complement C3 Pending Complement C4 Pending Miscellaneous Ref Lab Test Result Pending Ref Lab Test Result Pending 08/06 08/06 08/06 0705 0705 0705 Chemistry Sodium (137 - 145 mmol/L) 137 Potassium (3.5 - 5.1 mmol/L) 5.3 H Chloride (98 - 107 mmol/L) 109 H Carbon Dioxide (22 - 30 mmol/L) 17 L Anion Gap (5 - 16) 11 BUN (9 - 20 mg/dL) 50 H Creatinine (0.7 - 1.2 mg/dL) 6.9 *H Estimated GFR (>60 ml/min) 9 L BUN/Creatinine Ratio (7 - 25 %) 7.2 Hematology CBC w Diff NO MAN DIFF REQ WBC (4.8 - 10.8 /CUMM) 11.1 H RBC (4.70 - 6.10 /CUMM) 3.82 L Hgb (14.0 - 18.0 G/DL) 12.0 L Hct (42 - 52 %) 35.3 L MCV (80.0 - 94.0 FL) 92.5 MCH (27.0 - 31.0 PG) 31.3 H MCHC (33.0 - 37.0 G/DL) 33.8 RDW (11.5 - 14.5 %) 13.9 Plt Count (130 - 400 /CUMM) 187 MPV (7.4 - 10.4 FL) 8.3 Gran % (42.2 - 75.2 %) 86.1 H Lymphocytes % (20.5 - 51.1 %) 6.6 L Monocytes % (1.7 - 9.3 %) 7.3 Eosinophils % (0 - 5 %) 0 Basophils % (0.0 - 2.0 %) 0 Absolute Granulocytes (1.4 - 6.5 /CUMM) 9.6 H Absolute Lymphocytes (1.2 - 3.4 /CUMM) 0.7 L Absolute Monocytes (0.10 - 0.60 /CUMM) 0.8 H Absolute Eosinophils (0.0 - 0.7 /CUMM) 0 Absolute Basophils (0.0 - 0.2 /CUMM) 0 Immunology ARIES Titer Pending Anti-Nuclear Antibody Pending ANCA Pending Miscellaneous Ref Lab Test Result Pending Ref Lab Test Result Pending Pending 08/06 08/05 08/05 0000 1940 1820 Chemistry Sodium (137 - 145 mmol/L) 137 135 L Potassium (3.5 - 5.1 mmol/L) 5.5 H 5.5 H Chloride (98 - 107 mmol/L) 109 H 108 H Carbon Dioxide (22 - 30 mmol/L) 15 L 14 L Anion Gap (5 - 16) 13 13 BUN (9 - 20 mg/dL) 46 H 44 H Creatinine (0.7 - 1.2 mg/dL) 6.4 *H 5.5 *H Estimated GFR (>60 ml/min) 10 L 11 L BUN/Creatinine Ratio (7 - 25 %) 7.2 8.0 Urines Urine Total Volume (600 - 1500 ML/24HR) 1100 Ur Total Protein 24 Hr (42 - 255 mg/24HR) 583.0 H 08/05 08/05 08/05 1610 1610 1138 Urines Urine Color (YEL,AMB,STR) YEL Cancelled Urine Clarity (CLEAR) HAZY H Cancelled Urine pH (5.0 - 8.0) 6.5 Cancelled Ur Specific Ava (1.001 - 1.035) 1.010 Cancelled Urine Protein (NEG,<30 MG/DL) 100 H Cancelled Urine Ketones (NEG) NEG Cancelled Urine Nitrite (NEG) NEG Cancelled Urine Bilirubin (NEG) NEG Cancelled Urine Urobilinogen (0.1 - 1.0 EU/dl) 0.2 Cancelled Ur Leukocyte Esterase (NEG) NEG Cancelled Ur Microscopic SEDIMENT EXAMINED Cancelled Urine RBC (0 - 5 /HPF) 1-3 Urine WBC (0 - 2 /HPF) 1-3 H Ur Epithelial Cells (NONE,FEW) FEW Urine Hemoglobin (NEG) LARGE H Cancelled Ur Random Creatinine (mg/dL) 26.7 Ur Random Sodium (30 - 90 mmol/L) 42 Ur Random Potassium (mmol/L) 3.2 Fraction Sodium Excret (<1% %) 4.6 H Urine Glucose (N MG/DL) NEG Cancelled Vital Signs & I&O Last 24 Hrs of Vitals and I&O: Vital Signs Date Time Temp Pulse Resp B/P B/P Pulse O2 O2 Flow FiO2 Mean Ox Delivery Rate 08/07 0620 98.7 63 18 120/82 98 Room Air 08/06 2139 98.0 52 20 122/80 99 Room Air 08/06 1448 98.0 76 18 140/70 98 Room Air Intake & Output 08/07 1600 08/07 0800 08/07 0000 Intake Total 400 1050 Output Total 1100 390 Balance -700 660 Intake, Oral 400 1050 Output, Urine 1100 390 Impression/Plan Impression/Plan Impression/Plan: 24 hr urine showed around half a gram protenuria Patient is a 41-year-old male past medical history of cholecystectomy, 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 ISSUES Acute renal failure associated with rash, urticarial symptoms with initial elevated lipase etc now has no further rash but at times has hives, with a very confusing picture- Diff dx include AIN vs ATN. Vasculitis and other Rheum conditions needs to be evaluated aswell Abd pain suprapubic now sig enough to require morphine REC Cont monitor urine out put Await vasculitis work up check CRP (not high sen CRP), ESR Pt advised to drink free water to thirst - not to over drink Cont bicarb Renal an GI to see CT abd pelvis to see if there is a reason for his pain supra pubically PPI if needed PRn morphine Start ann and docusate One dose of miralax today Check cpk and aldolase Will follow Call Dr Luna to see (rheum) May need a renal bx - renal to decide today Cont steroid FSG and sliding scale Renal and low carb diet
--- NOTE | 2017-08-07 11:16 | PN- Nephrology ---
Assessment/Plan Nephrology Assessment: 1. Acute kidney injury likely secondary to acute tubular necrosis or acute interstitial nephritis with improving urine output but rising serum creatinine; fortunately, no significant uremic symptoms and no volume 2. Metabolic acidosis, primarily non-anion gap, on oral sodium bicarb 3. Suprapubic/low back pain of uncertain etiology; doubt that it is related to his RHONDA Suggestion: 1. See no reason for renal biopsy at this time it will likely not change our management. We will revisit this should any of his serologies come back as positive. 2. No clinical need for dialysis as yet 3. Continue oral sodium bicarbonate 4. Continue to monitor intake and output, chemistries daily 5. Please repeat serum phosphorus tomorrow 6. Urine culture 7. Consider repeat CT of abdomen/pelvis without contrast if lower abdominal/ back symptoms persist Subjective Subjective: Patient had one episode of dry heaves this morning which he attributed to something he ate at breakfast. No further nausea or vomiting and no shortness of breath, chest pain or alterations in mental status. He remains afebrile with stable vital signs and without chills or new rash. Urine output excellent but creatinine up to 7.9, BUN 63, potassium 4.9, CO2 low at 15. Serology results pending. Objective Vital Signs and I&Os Vital Signs Date Time Temp Pulse Resp B/P B/P Pulse O2 O2 Flow FiO2 Mean Ox Delivery Rate 08/07 0620 98.7 63 18 120/82 98 Room Air 08/06 2139 98.0 52 20 122/80 99 Room Air 08/06 1448 98.0 76 18 140/70 98 Room Air Intake & Output 08/07 1600 08/07 0400 08/06 1600 08/06 0400 08/05 1600 08/05 0400 Intake Total 400 1050 1550 1500 2060 1060 Output Total 1100 390 400 250 350 700 Balance -894 660 9720 1250 1710 360 Intake, IV 450 1200 1200 1000 Intake, Oral 400 1050 1100 300 860 60 Number 1 Bowel Movements Output, Urine 1100 390 400 250 350 700 Physical Exam: General: Well-developed, obese white male NAD Skin: No rash or jaundice HEENT: Conjunctivae pink, sclerae anicteric, mucous membranes moist Neck: Without masses or thyromegaly, no supraclavicular or cervical adenopathy Chest: Clear to P&A Heart: Regular rate and rhythm without S3 or rub Abdomen: Obese, soft with minimal suprapubic tenderness without palpable masses or organomegaly Extremities: Without cyanosis or edema Neuro: Cognitively intact, no focal findings, no asterixis or myoclonus Results Pertinent Lab Results: Laboratory Tests 08/07 08/07 08/06 0710 0600 1854 Chemistry Sodium (137 - 145 mmol/L) 132 L 132 L Potassium (3.5 - 5.1 mmol/L) 4.9 5.2 H Chloride (98 - 107 mmol/L) 103 102 Carbon Dioxide (22 - 30 mmol/L) 14 L 15 L Anion Gap (5 - 16) 15 15 BUN (9 - 20 mg/dL) 63 H 55 H Creatinine (0.7 - 1.2 mg/dL) 7.9 *H 7.3 *H Estimated GFR (>60 ml/min) 8 L 8 L BUN/Creatinine Ratio (7 - 25 %) 8.0 7.5 Hematology CBC w Diff NO MAN DIFF REQ WBC (4.8 - 10.8 /CUMM) 14.2 H RBC (4.70 - 6.10 /CUMM) 4.11 L Hgb (14.0 - 18.0 G/DL) 12.9 L Hct (42 - 52 %) 38.1 L MCV (80.0 - 94.0 FL) 92.7 MCH (27.0 - 31.0 PG) 31.3 H MCHC (33.0 - 37.0 G/DL) 33.8 RDW (11.5 - 14.5 %) 13.6 Plt Count (130 - 400 /CUMM) 195 MPV (7.4 - 10.4 FL) 8.4 Gran % (42.2 - 75.2 %) 81.2 H Lymphocytes % (20.5 - 51.1 %) 10.2 L Monocytes % (1.7 - 9.3 %) 8.4 Eosinophils % (0 - 5 %) 0.1 Basophils % (0.0 - 2.0 %) 0.1 Absolute Granulocytes (1.4 - 6.5 /CUMM) 11.5 H Absolute Lymphocytes (1.2 - 3.4 /CUMM) 1.4 Absolute Monocytes (0.10 - 0.60 /CUMM) 1.2 H Absolute Eosinophils (0.0 - 0.7 /CUMM) 0 Absolute Basophils (0.0 - 0.2 /CUMM) 0 Immunology Complement C3 Pending Complement C4 Pending Miscellaneous Ref Lab Test Result Pending Ref Lab Test Result Pending 08/06 08/06 08/06 0705 0705 0705 Chemistry Sodium (137 - 145 mmol/L) 137 Potassium (3.5 - 5.1 mmol/L) 5.3 H Chloride (98 - 107 mmol/L) 109 H Carbon Dioxide (22 - 30 mmol/L) 17 L Anion Gap (5 - 16) 11 BUN (9 - 20 mg/dL) 50 H Creatinine (0.7 - 1.2 mg/dL) 6.9 *H Estimated GFR (>60 ml/min) 9 L BUN/Creatinine Ratio (7 - 25 %) 7.2 Hematology CBC w Diff NO MAN DIFF REQ WBC (4.8 - 10.8 /CUMM) 11.1 H RBC (4.70 - 6.10 /CUMM) 3.82 L Hgb (14.0 - 18.0 G/DL) 12.0 L Hct (42 - 52 %) 35.3 L MCV (80.0 - 94.0 FL) 92.5 MCH (27.0 - 31.0 PG) 31.3 H MCHC (33.0 - 37.0 G/DL) 33.8 RDW (11.5 - 14.5 %) 13.9 Plt Count (130 - 400 /CUMM) 187 MPV (7.4 - 10.4 FL) 8.3 Gran % (42.2 - 75.2 %) 86.1 H Lymphocytes % (20.5 - 51.1 %) 6.6 L Monocytes % (1.7 - 9.3 %) 7.3 Eosinophils % (0 - 5 %) 0 Basophils % (0.0 - 2.0 %) 0 Absolute Granulocytes (1.4 - 6.5 /CUMM) 9.6 H Absolute Lymphocytes (1.2 - 3.4 /CUMM) 0.7 L Absolute Monocytes (0.10 - 0.60 /CUMM) 0.8 H Absolute Eosinophils (0.0 - 0.7 /CUMM) 0 Absolute Basophils (0.0 - 0.2 /CUMM) 0 Immunology ARIES Titer Pending Anti-Nuclear Antibody Pending ANCA Pending Miscellaneous Ref Lab Test Result Pending Ref Lab Test Result Pending Pending 08/06 08/05 08/05 0000 1940 1820 Chemistry Sodium (137 - 145 mmol/L) 137 135 L Potassium (3.5 - 5.1 mmol/L) 5.5 H 5.5 H Chloride (98 - 107 mmol/L) 109 H 108 H Carbon Dioxide (22 - 30 mmol/L) 15 L 14 L Anion Gap (5 - 16) 13 13 BUN (9 - 20 mg/dL) 46 H 44 H Creatinine (0.7 - 1.2 mg/dL) 6.4 *H 5.5 *H Estimated GFR (>60 ml/min) 10 L 11 L BUN/Creatinine Ratio (7 - 25 %) 7.2 8.0 Urines Urine Total Volume (600 - 1500 ML/24HR) 1100 Ur Total Protein 24 Hr (42 - 255 mg/24HR) 583.0 H 08/05 08/05 08/05 1610 1610 1138 Urines Urine Color (YEL,AMB,STR) YEL Cancelled Urine Clarity (CLEAR) HAZY H Cancelled Urine pH (5.0 - 8.0) 6.5 Cancelled Ur Specific [place] (1.001 - 1.035) 1.010 Cancelled Urine Protein (NEG,<30 MG/DL) 100 H Cancelled Urine Ketones (NEG) NEG Cancelled Urine Nitrite (NEG) NEG Cancelled Urine Bilirubin (NEG) NEG Cancelled Urine Urobilinogen (0.1 - 1.0 EU/dl) 0.2 Cancelled Ur Leukocyte Esterase (NEG) NEG Cancelled Ur Microscopic SEDIMENT EXAMINED Cancelled Urine RBC (0 - 5 /HPF) 1-3 Urine WBC (0 - 2 /HPF) 1-3 H Ur Epithelial Cells (NONE,FEW) FEW Urine Hemoglobin (NEG) LARGE H Cancelled Ur Random Creatinine (mg/dL) 26.7 Ur Random Sodium (30 - 90 mmol/L) 42 Ur Random Potassium (mmol/L) 3.2 Fraction Sodium Excret (<1% %) 4.6 H Urine Glucose (N MG/DL) NEG Cancelled 08/05 08/04 08/04 0607 1515 1515 Chemistry Sodium (137 - 145 mmol/L) 138 135 L Potassium (3.5 - 5.1 mmol/L) 3.9 4.6 Chloride (98 - 107 mmol/L) 107 104 Carbon Dioxide (22 - 30 mmol/L) 20 L 20 L Anion Gap (5 - 16) 11 11 BUN (9 - 20 mg/dL) 38 H 29 H Creatinine (0.7 - 1.2 mg/dL) 4.0 H 2.4 H Estimated GFR (>60 ml/min) 17 L 30 L BUN/Creatinine Ratio (7 - 25 %) 9.5 12.1 Serum Osmolality (285 - 295 MOSM/KG) Cancelled 293 Phosphorus (2.5 - 4.5 mg/dL) 3.9 Magnesium (1.6 - 2.3 mg/dL) 1.8 Total Bilirubin (0.2 - 1.3 mg/dL) 0.8 Direct Bilirubin (< 0.4 mg/dL) 0.2 AST (17 - 59 U/L) 34 ALT (21 - 72 U/L) 38 Alkaline Phosphatase (< 127 U/L) 51 Total Protein (6.3 - 8.2 g/dL) 5.8 L Albumin (3.5 - 5.0 g/dL) 3.4 L Amylase (30 - 110 U/L) 50 Lipase (23 - 300 U/L) 68 Hematology CBC w Diff NO MAN DIFF REQ WBC (4.8 - 10.8 /CUMM) 13.7 H RBC (4.70 - 6.10 /CUMM) 4.31 L Hgb (14.0 - 18.0 G/DL) 13.4 L Hct (42 - 52 %) 39.3 L MCV (80.0 - 94.0 FL) 91.2 MCH (27.0 - 31.0 PG) 31.1 H MCHC (33.0 - 37.0 G/DL) 34.1 RDW (11.5 - 14.5 %) 13.7 Plt Count (130 - 400 /CUMM) 189 MPV (7.4 - 10.4 FL) 8.6 Gran % (42.2 - 75.2 %) 81.1 H Lymphocytes % (20.5 - 51.1 %) 10.1 L Monocytes % (1.7 - 9.3 %) 8.4 Eosinophils % (0 - 5 %) 0.2 Basophils % (0.0 - 2.0 %) 0.2 Absolute Granulocytes (1.4 - 6.5 /CUMM) 11.1 H Absolute Lymphocytes (1.2 - 3.4 /CUMM) 1.4 Absolute Monocytes (0.10 - 0.60 /CUMM) 1.1 H Absolute Eosinophils (0.0 - 0.7 /CUMM) 0 Absolute Basophils (0.0 - 0.2 /CUMM) 0 08/04 1205 Toxicology Methadone Screen Cancelled Barbiturate Screen Cancelled Ur Phencyclidine Scrn Cancelled Amphetamines Screen Cancelled U Benzodiazepines Scrn Cancelled Urine Cocaine Screen Cancelled Urine Cannabis Screen Cancelled
[2017-08-07 13:58] VITALS: BP 134/98
[2017-08-07 22:32] VITALS: BP 124/60
[2017-08-08 06:20] VITALS: BP 132/80
--- NOTE | 2017-08-08 07:05 | PN- Housestaff ---
Subjective Follow-up For: Acute kidney injury Subjective: Patient seen and examined at bedside. He was lying comfortably in his bed. no overnight events. Patient complains of gaseous abdominal distention. He said his last bowel movement was on last Sunday. Patient also complains of on and off mild suprapubic pain radiating to the back. He also mentioned that he had good urine output. Review of Systems Constitutional: Reports: no symptoms, see HPI. Objective Last 24 Hrs of Vital Signs/I&O Vital Signs Date Time Temp Pulse Resp B/P B/P Pulse O2 O2 Flow FiO2 Mean Ox Delivery Rate 08/08 0620 98.1 67 20 132/80 97 Room Air 08/07 2232 98.0 50 20 124/60 98 Room Air 08/07 1358 98.5 60 20 134/98 97 Intake & Output 08/08 1600 08/08 0800 08/08 0000 Intake Total 100 100 Output Total 475 Balance 100 -375 Intake, Oral 100 100 Output, Urine 475 Physical Exam General Appearance: Alert, Oriented X3, Cooperative, No Acute Distress Cardiovascular: Regular Rate, Normal S1, Normal S2, No Murmurs Lungs: Clear to Auscultation Abdomen: Soft, No Tenderness, No Hepatospenomegaly, obese,bowel sounds heard Neurological: Strength at 5/5 X4 Ext, Normal Tone, Sensation Intact, Cranial Nerves 3-12 NL Current Medications: Current Medications Sig/Jordon Start time Last Medication Dose Route Stop Time Status Admin Docusate Sodium 100 MG BID 08/07 1057 AC 08/08 PO 0852 Lidocaine 1 PAT Q24H 08/07 2100 AC 08/07 TOP 2030 Magnesium Hydroxide 30 ML ONCE ONE 08/08 0800 DC 08/08 PO 08/08 0801 0856 Morphine Sulfate 2 MG Q4P PRN 08/04 1500 AC 08/08 IV 0851 Pantoprazole Sodium 40 MG BID 08/04 2100 AC 08/08 IV 0850 Patient Medication 1 ED ONE ONE 08/07 1830 DC Teaching ED 08/07 1831 Polyethylene Glycol 17 GM DAILY 08/07 0906 DC 08/07 PO 1151 Prednisone 80 MG DAILY 08/05 1315 AC 08/08 PO 0852 Senna/Docusate Sodium 1 TAB BID 08/07 0906 AC 08/08 PO 0856 Sodium Bicarbonate 1,300 MG BID 08/06 2100 AC 08/08 PO 0853 Last 24 Hrs of Lab/Suresh Results Last 24 Hrs of Labs/Mics: Laboratory Tests 08/08/17 0745: Anion Gap 15, Estimated GFR 6 L, BUN/Creatinine Ratio 8.3, Phosphorus 7.5 H, CBC w Diff NO MAN DIFF REQ, RBC 3.94 L, MCV 90.0, MCH 31.0, MCHC 34.4, RDW 13.8 , MPV 8.2, Gran % 75.9 H, Lymphocytes % 11.9 L, Monocytes % 11.6 H, Eosinophils % 0.3, Basophils % 0.3, Absolute Granulocytes 8.4 H, Absolute Lymphocytes 1.3, Absolute Monocytes 1.3 H, Absolute Eosinophils 0, Absolute Basophils 0 08/07/17 1145: C-Reactive Prot, Quant 3.3 H 08/07/17 1136: Aldolase Pending Microbiology 08/07 UNK URINE ROUT: Urine Culture - RES Assessment/Plan Assessment: Patient is a 41-year-old male past medical history of cholecystectomy, 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 Assessment and plan * Acute kidney injury secondary due to ATN/AIN/ immunological/vasculitis/drug- induced * Suprapubic pain * Leukocytosis * Hyponatremia * Hyperkalemia-resolving * Chronic back pain 1. Acute kidney injury-patient came in with acute renal injury associated with hematuria, rash. Rash and hematuria resolved. Patient still has elevated BUN/ creatinine. Patient had good urine output overnight. We will maintain strict I 's and O's. Hopefully BUN/creatinine creatinine should trend down today. At this point discussed with the section housekeeper who suggested that he doesn't need any renal biopsy or dialysis. The same information was relayed to the patient. To rule out immunological/vasculitis serological markers have been sent. We will follow final reports. Informed Dr. Luna saw supervisory civil engineer over the phone who suggested to get back to him if the serology reports comes back positive. ARIES negative, pending ANCA, C3, C4, and a sternal antibody We will follow aldolase level. CPK was elevated. 2. Suprapubic pain-initial CAT scan was negative. Patient complains of suprapubic pain radiating to the back on and off. Pancreatitis ruled out. Patient has chronic back pain, unsure if this is contributing to his abdominal pain. We have added laxatives and if needed we will take a repeat CAT scan. Patient is on morphine for pain. 3. Diet-renal and low carb diet. Plan for today-follow a BEP, and nephrology recommendation. Problem List: 1. RHONDA (acute kidney injury) Pain Ratin Pain Location: NONE Pain Goal: Remain pain free Pain Plan: TYLENOL Tomorrow's Labs & Rationales: CBC,BEP
[2017-08-08 08:48] LABS: ABSOLUTE BASOPHIL COUNT 0 /CUMM (0.0-0.2); ABSOLUTE EOSINOPHIL COUNT 0 /CUMM (0.0-0.7); ABSOLUTE GRANULOCYTE CT 8.4 /CUMM (1.4-6.5); ABSOLUTE LYMPH COUNT 1.3 /CUMM (1.2-3.4); ABSOLUTE MONOCYTE COUNT 1.3 /CUMM (0.10-0.60); BASOPHIL % 0.3 % (0.0-2.0); EOSINOPHIL % 0.3 % (0-5); GRANULOCYTE % 75.9 % (42.2-75.2); HEMATOCRIT 35.5 % (42-52); MEAN CORPUSCULAR HGB CONC 34.4 G/DL (33.0-37.0); MEAN PLATELET VOLUME 8.2 FL (7.4-10.4); PLATELET COUNT 201 /CUMM (130-400); RBC DISTRIBUTION WIDTH 13.8 % (11.5-14.5); RED BLOOD CELL CT 3.94 /CUMM (4.70-6.10); WHITE BLOOD CELL COUNT 11.1 /CUMM (4.8-10.8)
--- NOTE | 2017-08-08 11:23 | PN- Nephrology ---
Assessment/Plan Nephrology Assessment: 1. Acute kidney injury likely secondary to acute tubular necrosis or acute interstitial nephritis -nonoliguric but with rising serum creatinine; no significant uremic symptoms or volume overload as yet 2. Metabolic acidosis, primarily non-anion gap, on oral sodium bicarb 3. Hyperphosphatemia 4. Anemia, relatively mild, no need for an SILVIANO at this time Suggestion: 1. Proceed with placement of a tunneled dialysis catheter today in IR in anticipation of dialysis need later today (or at latest tomorrow); please check INR. 2. Tentatively schedule for renal biopsy on Sunday in IR; avoid any antiplatelet or anticoagulant medication; he will need to be n.p.o. after midnight on night; can type and crossmatch tomorrow for 2 units of packed RBCs on hold for Sunday's procedure. 3. Sevelamer 800 mg p.o. 3 times daily with meals. 4. Continue oral sodium bicarbonate. 5. Please repeat urinalysis. Subjective Subjective: Patient somewhat dejected about the fact that his creatinine continues to rise despite good urine output. He denies any uremic symptoms and no shortness of breath. His only complaint at this time is constipation with bloating. Creatinine up to 9.4 this morning, potassium 4.5, CO2 15, serum phosphorus elevated at 7.5. Serologic evaluation unrevealing thus far including negative ARIES and negative hepatitis serologies. C3, C4 and ANCA results still pending. Objective Vital Signs and I&Os Vital Signs Date Time Temp Pulse Resp B/P B/P Pulse O2 O2 Flow FiO2 Mean Ox Delivery Rate 08/08 0620 98.1 67 20 132/80 97 Room Air 08/07 2232 98.0 50 20 124/60 98 Room Air 08/07 1358 98.5 60 20 134/98 97 Intake & Output 08/08 1600 08/08 0400 08/07 1600 08/07 0400 08/06 1600 08/06 0400 Intake Total 745 130 7506 1050 1550 1500 Output Total 475 1100 390 400 250 Balance 100 -375 20 660 1150 1250 Intake, IV 450 1200 Intake, Oral 290 843 0309 1050 1100 300 Number 0 Bowel Movements Output, Urine 475 1100 390 400 250 Physical Exam: General: Well-developed, obese white male NAD Skin: No rash or jaundice HEENT: Conjunctivae pink, sclerae anicteric, mucous membranes moist Neck: Without masses or thyromegaly, no supraclavicular or cervical adenopathy Chest: Clear to P&A Heart: Regular rate and rhythm without S3 or rub Abdomen: Obese, soft and nontender without palpable masses or organomegaly Extremities: Without cyanosis or edema Neuro: Cognitively intact, no focal findings, no asterixis or myoclonus Results Pertinent Lab Results: Laboratory Tests 08/08 08/08 08/07 1106 0745 1145 Chemistry Sodium (137 - 145 mmol/L) 137 Potassium (3.5 - 5.1 mmol/L) 4.5 Chloride (98 - 107 mmol/L) 108 H Carbon Dioxide (22 - 30 mmol/L) 14 L Anion Gap (5 - 16) 15 BUN (9 - 20 mg/dL) 78 H Creatinine (0.7 - 1.2 mg/dL) 9.4 *H Estimated GFR (>60 ml/min) 6 L BUN/Creatinine Ratio (7 - 25 %) 8.3 Calcium (8.4 - 10.2 mg/dL) 7.6 L Phosphorus (2.5 - 4.5 mg/dL) 7.5 H C-Reactive Prot, Quant (<1.0 mg/dL) 3.3 H Coagulation PT Pending INR Pending Hematology CBC w Diff NO MAN DIFF REQ WBC (4.8 - 10.8 /CUMM) 11.1 H RBC (4.70 - 6.10 /CUMM) 3.94 L Hgb (14.0 - 18.0 G/DL) 12.2 L Hct (42 - 52 %) 35.5 L MCV (80.0 - 94.0 FL) 90.0 MCH (27.0 - 31.0 PG) 31.0 MCHC (33.0 - 37.0 G/DL) 34.4 RDW (11.5 - 14.5 %) 13.8 Plt Count (130 - 400 /CUMM) 201 MPV (7.4 - 10.4 FL) 8.2 Gran % (42.2 - 75.2 %) 75.9 H Lymphocytes % (20.5 - 51.1 %) 11.9 L Monocytes % (1.7 - 9.3 %) 11.6 H Eosinophils % (0 - 5 %) 0.3 Basophils % (0.0 - 2.0 %) 0.3 Absolute Granulocytes (1.4 - 6.5 /CUMM) 8.4 H Absolute Lymphocytes (1.2 - 3.4 /CUMM) 1.3 Absolute Monocytes (0.10 - 0.60 /CUMM) 1.3 H Absolute Eosinophils (0.0 - 0.7 /CUMM) 0 Absolute Basophils (0.0 - 0.2 /CUMM) 0 08/07 08/07 08/07 1136 0710 0600 Chemistry Sodium (137 - 145 mmol/L) 132 L Potassium (3.5 - 5.1 mmol/L) 4.9 Chloride (98 - 107 mmol/L) 103 Carbon Dioxide (22 - 30 mmol/L) 14 L Anion Gap (5 - 16) 15 BUN (9 - 20 mg/dL) 63 H Creatinine (0.7 - 1.2 mg/dL) 7.9 *H Estimated GFR (>60 ml/min) 8 L BUN/Creatinine Ratio (7 - 25 %) 8.0 Aldolase Pending Hematology CBC w Diff NO MAN DIFF REQ WBC (4.8 - 10.8 /CUMM) 14.2 H RBC (4.70 - 6.10 /CUMM) 4.11 L Hgb (14.0 - 18.0 G/DL) 12.9 L Hct (42 - 52 %) 38.1 L MCV (80.0 - 94.0 FL) 92.7 MCH (27.0 - 31.0 PG) 31.3 H MCHC (33.0 - 37.0 G/DL) 33.8 RDW (11.5 - 14.5 %) 13.6 Plt Count (130 - 400 /CUMM) 195 MPV (7.4 - 10.4 FL) 8.4 Gran % (42.2 - 75.2 %) 81.2 H Lymphocytes % (20.5 - 51.1 %) 10.2 L Monocytes % (1.7 - 9.3 %) 8.4 Eosinophils % (0 - 5 %) 0.1 Basophils % (0.0 - 2.0 %) 0.1 Absolute Granulocytes (1.4 - 6.5 /CUMM) 11.5 H Absolute Lymphocytes (1.2 - 3.4 /CUMM) 1.4 Absolute Monocytes (0.10 - 0.60 /CUMM) 1.2 H Absolute Eosinophils (0.0 - 0.7 /CUMM) 0 Absolute Basophils (0.0 - 0.2 /CUMM) 0 Immunology Complement C3 Pending Complement C4 Pending Miscellaneous Ref Lab Test Result Pending Ref Lab Test Result Pending 08/06 08/06 08/06 1854 0705 0705 Chemistry Sodium (137 - 145 mmol/L) 132 L Potassium (3.5 - 5.1 mmol/L) 5.2 H Chloride (98 - 107 mmol/L) 102 Carbon Dioxide (22 - 30 mmol/L) 15 L Anion Gap (5 - 16) 15 BUN (9 - 20 mg/dL) 55 H Creatinine (0.7 - 1.2 mg/dL) 7.3 *H Estimated GFR (>60 ml/min) 8 L BUN/Creatinine Ratio (7 - 25 %) 7.5 Immunology ARIES Titer ND Anti-Nuclear Antibody (NEG,1:40) NEG 1:40 IFA ASSAY Miscellaneous Ref Lab Test Result Pending Ref Lab Test Result Pending 08/06 08/06 08/05 0705 0000 1940 Chemistry Sodium (137 - 145 mmol/L) 137 137 Potassium (3.5 - 5.1 mmol/L) 5.3 H 5.5 H Chloride (98 - 107 mmol/L) 109 H 109 H Carbon Dioxide (22 - 30 mmol/L) 17 L 15 L Anion Gap (5 - 16) 11 13 BUN (9 - 20 mg/dL) 50 H 46 H Creatinine (0.7 - 1.2 mg/dL) 6.9 *H 6.4 *H Estimated GFR (>60 ml/min) 9 L 10 L BUN/Creatinine Ratio (7 - 25 %) 7.2 7.2 Hematology CBC w Diff NO MAN DIFF REQ WBC (4.8 - 10.8 /CUMM) 11.1 H RBC (4.70 - 6.10 /CUMM) 3.82 L Hgb (14.0 - 18.0 G/DL) 12.0 L Hct (42 - 52 %) 35.3 L MCV (80.0 - 94.0 FL) 92.5 MCH (27.0 - 31.0 PG) 31.3 H MCHC (33.0 - 37.0 G/DL) 33.8 RDW (11.5 - 14.5 %) 13.9 Plt Count (130 - 400 /CUMM) 187 MPV (7.4 - 10.4 FL) 8.3 Gran % (42.2 - 75.2 %) 86.1 H Lymphocytes % (20.5 - 51.1 %) 6.6 L Monocytes % (1.7 - 9.3 %) 7.3 Eosinophils % (0 - 5 %) 0 Basophils % (0.0 - 2.0 %) 0 Absolute Granulocytes (1.4 - 6.5 /CUMM) 9.6 H Absolute Lymphocytes (1.2 - 3.4 /CUMM) 0.7 L Absolute Monocytes (0.10 - 0.60 /CUMM) 0.8 H Absolute Eosinophils (0.0 - 0.7 /CUMM) 0 Absolute Basophils (0.0 - 0.2 /CUMM) 0 Immunology ANCA Pending Miscellaneous Ref Lab Test Result Pending Urines Urine Total Volume (600 - 1500 ML/24HR) 1100 Ur Total Protein 24 Hr (42 - 255 mg/24HR) 583.0 H 08/05 08/05 08/05 1820 1610 1610 Chemistry Sodium (137 - 145 mmol/L) 135 L Potassium (3.5 - 5.1 mmol/L) 5.5 H Chloride (98 - 107 mmol/L) 108 H Carbon Dioxide (22 - 30 mmol/L) 14 L Anion Gap (5 - 16) 13 BUN (9 - 20 mg/dL) 44 H Creatinine (0.7 - 1.2 mg/dL) 5.5 *H Estimated GFR (>60 ml/min) 11 L BUN/Creatinine Ratio (7 - 25 %) 8.0 Urines Urine Color (YEL,AMB,STR) YEL Urine Clarity (CLEAR) HAZY H Urine pH (5.0 - 8.0) 6.5 Ur Specific [place] (1.001 - 1.035) 1.010 Urine Protein (NEG,<30 MG/DL) 100 H Urine Ketones (NEG) NEG Urine Nitrite (NEG) NEG Urine Bilirubin (NEG) NEG Urine Urobilinogen (0.1 - 1.0 EU/dl) 0.2 Ur Leukocyte Esterase (NEG) NEG Ur Microscopic SEDIMENT EXAMINED Urine RBC (0 - 5 /HPF) 1-3 Urine WBC (0 - 2 /HPF) 1-3 H Ur Epithelial Cells (NONE,FEW) FEW Urine Hemoglobin (NEG) LARGE H Ur Random Creatinine (mg/dL) 26.7 Ur Random Sodium (30 - 90 mmol/L) 42 Ur Random Potassium (mmol/L) 3.2 Fraction Sodium Excret (<1% %) 4.6 H Urine Glucose (N MG/DL) NEG 08/05 1138 Urines Urine Color Cancelled Urine Clarity Cancelled Urine pH Cancelled Ur Specific [place] Cancelled Urine Protein Cancelled Urine Ketones Cancelled Urine Nitrite Cancelled Urine Bilirubin Cancelled Urine Urobilinogen Cancelled Ur Leukocyte Esterase Cancelled Ur Microscopic Cancelled Urine Hemoglobin Cancelled Urine Glucose Cancelled
[2017-08-08 11:53] LABS: PT 11.2 SEC (9.4-12.5)
--- NOTE | 2017-08-08 13:43 | PN- Pulmonary ---
Subjective HPI/Critical Care Issues: Doing well stable Creat is increasing however fatigue Objective Current Medications: Current Medications Sig/Jordon Start time Last Medication Dose Route Stop Time Status Admin Docusate Sodium 100 MG BID 08/07 1057 AC 08/08 PO 0852 Heparin Sodium 0 .STK-MED ONE 08/08 1301 DC (Porcine) IV Lidocaine 0 .STK-MED ONE 08/08 1254 DC .ROUTE Lidocaine 1 PAT Q24H 08/07 2100 AC 08/07 TOP 2030 Lidocaine/Epinephrine 0 .STK-MED ONE 08/08 1301 DC .ROUTE Magnesium Hydroxide 30 ML ONCE ONE 08/08 0800 DC 08/08 PO 08/08 0801 0856 Morphine Sulfate 2 MG Q4P PRN 08/04 1500 AC 08/08 IV 0851 Pantoprazole Sodium 40 MG BID 08/04 2100 08/08 IV 0850 Patient Medication 1 ED ONE ONE 08/08 1130 SD Teaching ED 08/08 1131 Patient Medication 1 ED ONE ONE 08/07 1830 DC Teaching ED 08/07 1831 Polyethylene Glycol 17 GM DAILY 08/08 1030 AC PO Polyethylene Glycol 17 GM DAILY 08/07 0906 DC 08/07 PO 1151 Prednisone 80 MG DAILY 08/05 1315 AC 08/08 PO 0852 Senna/Docusate Sodium 1 TAB BID 08/07 0906 AC 08/08 PO 0856 Sevelamer Carbonate 800 MG TID 08/08 1400 AC PO Sodium Bicarbonate 1,300 MG BID 08/06 2100 AC 08/08 PO 0853 Vital Signs & I&O Last 24 Hrs of Vitals and I&O: Vital Signs Date Time Temp Pulse Resp B/P B/P Pulse O2 O2 Flow FiO2 Mean Ox Delivery Rate 08/08 0620 98.1 67 20 132/80 97 Room Air 08/07 2232 98.0 50 20 124/60 98 Room Air 08/07 1358 98.5 60 20 134/98 97 Intake & Output 08/08 1600 08/08 0800 08/08 0000 Intake Total 100 100 Output Total 475 Balance 100 -375 Intake, Oral 100 100 Output, Urine 475 Laboratory Tests 08/08 08/08 08/07 08/07 1106 0745 1145 1136 Chemistry Sodium (137 - 145 mmol/L) 137 Potassium (3.5 - 5.1 mmol/L) 4.5 Chloride (98 - 107 mmol/L) 108 H Carbon Dioxide (22 - 30 mmol/L) 14 L Anion Gap (5 - 16) 15 BUN (9 - 20 mg/dL) 78 H Creatinine (0.7 - 1.2 mg/dL) 9.4 *H Estimated GFR (>60 ml/min) 6 L BUN/Creatinine Ratio (7 - 25 %) 8.3 Calcium (8.4 - 10.2 mg/dL) 7.6 L Phosphorus (2.5 - 4.5 mg/dL) 7.5 H C-Reactive Prot, Quant (<1.0 mg/dL) 3.3 H Aldolase Pending Coagulation PT (9.4 - 12.5 SEC) 11.2 INR (0.90 - 1.17) 1.03 Hematology CBC w Diff NO MAN DIFF REQ WBC (4.8 - 10.8 /CUMM) 11.1 H RBC (4.70 - 6.10 /CUMM) 3.94 L Hgb (14.0 - 18.0 G/DL) 12.2 L Hct (42 - 52 %) 35.5 L MCV (80.0 - 94.0 FL) 90.0 MCH (27.0 - 31.0 PG) 31.0 MCHC (33.0 - 37.0 G/DL) 34.4 RDW (11.5 - 14.5 %) 13.8 Plt Count (130 - 400 /CUMM) 201 MPV (7.4 - 10.4 FL) 8.2 Gran % (42.2 - 75.2 %) 75.9 H Lymphocytes % (20.5 - 51.1 %) 11.9 L Monocytes % (1.7 - 9.3 %) 11.6 H Eosinophils % (0 - 5 %) 0.3 Basophils % (0.0 - 2.0 %) 0.3 Absolute Granulocytes (1.4 - 6.5 /CUMM) 8.4 H Absolute Lymphocytes (1.2 - 3.4 /CUMM) 1.3 Absolute Monocytes (0.10 - 0.60 /CUMM) 1.3 H Absolute Eosinophils (0.0 - 0.7 /CUMM) 0 Absolute Basophils (0.0 - 0.2 /CUMM) 0 08/07 08/07 08/06 0710 0600 1854 Chemistry Sodium (137 - 145 mmol/L) 132 L 132 L Potassium (3.5 - 5.1 mmol/L) 4.9 5.2 H Chloride (98 - 107 mmol/L) 103 102 Carbon Dioxide (22 - 30 mmol/L) 14 L 15 L Anion Gap (5 - 16) 15 15 BUN (9 - 20 mg/dL) 63 H 55 H Creatinine (0.7 - 1.2 mg/dL) 7.9 *H 7.3 *H Estimated GFR (>60 ml/min) 8 L 8 L BUN/Creatinine Ratio (7 - 25 %) 8.0 7.5 Hematology CBC w Diff NO MAN DIFF REQ WBC (4.8 - 10.8 /CUMM) 14.2 H RBC (4.70 - 6.10 /CUMM) 4.11 L Hgb (14.0 - 18.0 G/DL) 12.9 L Hct (42 - 52 %) 38.1 L MCV (80.0 - 94.0 FL) 92.7 MCH (27.0 - 31.0 PG) 31.3 H MCHC (33.0 - 37.0 G/DL) 33.8 RDW (11.5 - 14.5 %) 13.6 Plt Count (130 - 400 /CUMM) 195 MPV (7.4 - 10.4 FL) 8.4 Gran % (42.2 - 75.2 %) 81.2 H Lymphocytes % (20.5 - 51.1 %) 10.2 L Monocytes % (1.7 - 9.3 %) 8.4 Eosinophils % (0 - 5 %) 0.1 Basophils % (0.0 - 2.0 %) 0.1 Absolute Granulocytes (1.4 - 6.5 /CUMM) 11.5 H Absolute Lymphocytes (1.2 - 3.4 /CUMM) 1.4 Absolute Monocytes (0.10 - 0.60 /CUMM) 1.2 H Absolute Eosinophils (0.0 - 0.7 /CUMM) 0 Absolute Basophils (0.0 - 0.2 /CUMM) 0 Immunology Complement C3 Pending Complement C4 Pending Miscellaneous Ref Lab Test Result Pending Ref Lab Test Result Pending Microbiology Date/Time Procedure - Status Source Growth 08/07 UNK Urine Culture - RES URINE ROUT Impression/Plan Impression/Plan Impression/Plan: Patient is a 41-year-old male past medical history of cholecystectomy, 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 ISSUES Acute renal failure associated with rash, urticarial symptoms with initial elevated lipase etc now has no further rash but at times has hives, with a very confusing picture- Diff dx include AIN vs ATN. Vasculitis and other Rheum conditions needs to be evaluated aswell Abd pain suprapubic now sig enough to require morphine REC Cont monitor urine out put Await vasculitis work up Pt advised to drink free water to thirst - not to over drink Cont bicarb Renal and GI to see CT abd pelvis PPI if needed PRn morphine Start ann and docusate daily Dily miralax Mom today One dose of miralax today Check cpk and aldolase Will follow Needs a cath for dialysis Cont steroid FSG and sliding scale Renal and low carb diet
--- NOTE | 2017-08-08 15:19 | ULTRASOUND REPORT ---
CLINICAL HISTORY: This patient is a 41 years old male with renal failure, who presents to Interventional Radiology for placement of a nontunneled central venous catheter for hemodialysis. The case was discussed with Dr. Rachana jim who agreed to a nontunneled catheter, understanding this may need to be converted to a tunneled catheter if the patient's new onset renal failure does not improve. PROCEDURES: 1. Real-time ultrasound-guided access into the right internal jugular vein after documentation of selected vessel patency, and permanent imaging storing in the patient records. 2. Placement of a nontunneled 12-Fr 16 cm dual lumen central venous catheter. PHYSICIANS: Dr. Karolina Yepez (attending). MONITORING: The procedure was performed with continuous blood pressure, pulse oximetry as well as heart rate monitoring was performed by an independent registered nurse. MEDICATIONS: Lidocaine 1%, 3 mL subcutaneously CONTRAST: None FLUOROSCOPY TIME: 0.2 minutes DAP: 2.2 uGym2 COMPLICATIONS: None ESTIMATED BLOOD LOSS: <50 mL SPECIMENS: None IMPLANT: None SITE MARKING: As part of the preprocedure verification policy, a site marking procedure was initiated. Due to the nature the procedure, the insertion site could not be predetermined thus invoking the policy of exemption to site laterality and marking. Insertion site marking was performed in the procedure room in conjunction with imaging confirmation. PROCEDURE NOTE: Informed consent was obtained from the patient prior to the procedure. During this process, the procedure and potential alternatives were explained along with the intended outcome and benefits. The risks of the procedure, including the possibility of an unsuccessful procedure, as well as the risk of not doing the procedure, were discussed. The patient was given the opportunity to ask questions regarding the procedure and appeared competent to make decisions. A signed consent form documenting this discussion was placed in the medical record. A time-out procedure was performed. The patient was placed supine on the fluoroscopy table. All elements of maximal sterile barrier technique followed including use of cap, mask, sterile gown, sterile gloves, a sterile full body drape and hand hygiene. Also followed skin preparation with 2% chlorhexidine for cutaneous antisepsis, and sterile ultrasound preparation with sterile gel and probe cover when applicable. Local anesthesia was administered to the access site with lidocaine. The right internal jugular vein was accessed using ultrasound with a micropuncture Micropuncture set. A 0.018 wire was advanced into the high right atrium for measuring purposes. The 0.018 wire was subsequently exchanged for a 0.035 J wire that was advanced to the IVC. The micropuncture 5 [place] sheath was removed over the wire and serial fascial dilators were advanced over the wire followed by the catheter. The J-wire was removed. The catheter was tested, flushed, and sutured to the skin with its tip in the high right atrium. A Biopatch and sterile dressing were applied. The patient tolerated the procedure well. FINDINGS: 1. Patent right internal jugular vein. 2. Tip of catheter in the high right atrium. 3. Catheter flushes and aspirates very well. 4. No pneumothorax. IMPRESSION: Successful and uncomplicated placement of a nontunneled hemodialysis catheter. PLAN: 1. The patient was stable after the procedure and was transferred to the interventional recovery area. The patient will be transferred to the floor. 2. The catheter may be used immediately.
--- NOTE | 2017-08-08 15:31 | PN- Gastroenterology ---
Assessment/Plan GI Assessment/Recommendations: ASSESSMENT: 1. Pelvic Pain 2. Constipation related to Opioid Use 4. Acute Kidney Injury -- now requiring hemodialysis 3. History of Urticarial Lesions with ? Hyperpigmentation -- RECOMMENDATIONS: 1. I have spoken with the house staff and asked him to increase his bowel regimen. I've asked them to give him lactulose as well as MiraLAX on a twice a day basis and to give him additional Senokot this evening. His pelvic pain may be related to constipation, however, I would strongly consider a genitourinary source as well. 2. CT scan of the abdomen and pelvis with oral contrast only 3. Ultrasound of the urinary bladder 4. Consider urology consult question whether patient has other genitourinary problem such as prostatitis although patient does not have white blood cell count. 4. RAIES was negative. P-ANCA and other markers of autoimmune disease are still pending. 5 Await rheumatology consult if available Subjective Subjective: Patient complains of suprapubic pain which occurs only in the morning. He has not moved his bowels for 5 days. He is taking morphine for low back pain. He is taking morphine in the morning and at night. He has no nausea or vomiting. A dialysis catheter was placed earlier today. He has been nothing by mouth and is quite hungry and wants to eat. He is had no fever or shaking chills. I have been asked to see Mr. Fernandez again for evaluation again of his pelvic pain. He was given 1 Senokot as well as a dose of milk of magnesia and feels like he may move his bowels however is not had any results as yet. He had been given Colace yesterday with no results. Objective Vital Signs and I&Os Vital Signs Date Time Temp Pulse Resp B/P B/P Pulse O2 O2 Flow FiO2 Mean Ox Delivery Rate 08/08 0620 98.1 67 20 132/80 97 Room Air 08/07 2232 98.0 50 20 124/60 98 Room Air Intake & Output 08/08 1600 08/08 0400 Intake Total 179 523 5785 1050 1550 1500 Output Total 475 1100 390 400 250 Balance 200 -375 20 660 1150 1250 Intake, IV 450 1200 Intake, Oral 694 968 8844 1050 1100 300 Number 0 Bowel Movements Output, Urine 475 1100 390 400 250 Physical Exam General Appearance: awake, comfortable Respiratory: lungs clear Cardiovascular: regular rate/rhythm, normal S1 and S2 without rub, murmur, or gallop. Abdomen: normal bowel sounds, soft, non-tender, no organomegaly, obese Skin: intact, normal color, warm/dry Current Medications: Current Medications Sig/Jordon Start time Last Medication Dose Route Stop Time Status Admin Docusate Sodium 100 MG BID 08/07 1057 AC 08/08 PO 0852 Heparin Sodium 0 .STK-MED ONE 08/08 1350 DC (Porcine) IV Heparin Sodium 0 .STK-MED ONE 08/08 1301 DC (Porcine) IV Lactulose 30 GM BID 08/08 2100 AC PO Lidocaine 0 .STK-MED ONE 08/08 1254 DC .ROUTE Lidocaine 1 PAT Q24H 08/07 2100 AC 08/07 TOP 2030 Lidocaine/Epinephrine 0 .STK-MED ONE 08/08 1301 DC .ROUTE Magnesium Hydroxide 30 ML ONCE ONE 08/08 0800 DC 08/08 PO 08/08 0801 0856 Morphine Sulfate 2 MG Q4P PRN 08/04 1500 AC 08/08 IV 0851 Pantoprazole Sodium 40 MG BID 08/04 2100 AC 08/08 IV 0850 Patient Medication 1 ED ONE ONE 08/08 1130 DC Teaching ED 08/08 1131 Patient Medication 1 ED ONE ONE 08/07 1830 DC Teaching ED 08/07 1831 Polyethylene Glycol 17 GM DAILY 08/08 1030 AC PO Polyethylene Glycol 17 GM DAILY 08/07 0906 DC 08/07 PO 1151 Prednisone 80 MG DAILY 08/05 1315 AC 08/08 PO 0852 Senna/Docusate Sodium 1 TAB ONCE ONE 08/08 2100 AC PO 08/08 2101 Senna/Docusate Sodium 1 TAB BID 08/07 0906 AC 08/08 PO 0856 Sevelamer Carbonate 800 MG TID 08/08 1400 AC PO Sodium Bicarbonate 1,300 MG BID 08/06 2100 AC 08/08 PO 0853 Results Pertinent Lab Results: Laboratory Tests 08/08 08/08 08/07 08/07 1106 0745 1145 1136 Chemistry Sodium (137 - 145 mmol/L) 137 Potassium (3.5 - 5.1 mmol/L) 4.5 Chloride (98 - 107 mmol/L) 108 H Carbon Dioxide (22 - 30 mmol/L) 14 L Anion Gap (5 - 16) 15 BUN (9 - 20 mg/dL) 78 H Creatinine (0.7 - 1.2 mg/dL) 9.4 *H Estimated GFR (>60 ml/min) 6 L BUN/Creatinine Ratio (7 - 25 %) 8.3 Calcium (8.4 - 10.2 mg/dL) 7.6 L Phosphorus (2.5 - 4.5 mg/dL) 7.5 H C-Reactive Prot, Quant (<1.0 mg/dL) 3.3 H Aldolase Pending Coagulation PT (9.4 - 12.5 SEC) 11.2 INR (0.90 - 1.17) 1.03 Hematology CBC w Diff NO MAN DIFF REQ WBC (4.8 - 10.8 /CUMM) 11.1 H RBC (4.70 - 6.10 /CUMM) 3.94 L Hgb (14.0 - 18.0 G/DL) 12.2 L Hct (42 - 52 %) 35.5 L MCV (80.0 - 94.0 FL) 90.0 MCH (27.0 - 31.0 PG) 31.0 MCHC (33.0 - 37.0 G/DL) 34.4 RDW (11.5 - 14.5 %) 13.8 Plt Count (130 - 400 /CUMM) 201 MPV (7.4 - 10.4 FL) 8.2 Gran % (42.2 - 75.2 %) 75.9 H Lymphocytes % (20.5 - 51.1 %) 11.9 L Monocytes % (1.7 - 9.3 %) 11.6 H Eosinophils % (0 - 5 %) 0.3 Basophils % (0.0 - 2.0 %) 0.3 Absolute Granulocytes (1.4 - 6.5 /CUMM) 8.4 H Absolute Lymphocytes (1.2 - 3.4 /CUMM) 1.3 Absolute Monocytes (0.10 - 0.60 /CUMM) 1.3 H Absolute Eosinophils (0.0 - 0.7 /CUMM) 0 Absolute Basophils (0.0 - 0.2 /CUMM) 0 08/07 08/07 08/06 0710 0600 1854 Chemistry Sodium (137 - 145 mmol/L) 132 L 132 L Potassium (3.5 - 5.1 mmol/L) 4.9 5.2 H Chloride (98 - 107 mmol/L) 103 102 Carbon Dioxide (22 - 30 mmol/L) 14 L 15 L Anion Gap (5 - 16) 15 15 BUN (9 - 20 mg/dL) 63 H 55 H Creatinine (0.7 - 1.2 mg/dL) 7.9 *H 7.3 *H Estimated GFR (>60 ml/min) 8 L 8 L BUN/Creatinine Ratio (7 - 25 %) 8.0 7.5 Hematology CBC w Diff NO MAN DIFF REQ WBC (4.8 - 10.8 /CUMM) 14.2 H RBC (4.70 - 6.10 /CUMM) 4.11 L Hgb (14.0 - 18.0 G/DL) 12.9 L Hct (42 - 52 %) 38.1 L MCV (80.0 - 94.0 FL) 92.7 MCH (27.0 - 31.0 PG) 31.3 H MCHC (33.0 - 37.0 G/DL) 33.8 RDW (11.5 - 14.5 %) 13.6 Plt Count (130 - 400 /CUMM) 195 MPV (7.4 - 10.4 FL) 8.4 Gran % (42.2 - 75.2 %) 81.2 H Lymphocytes % (20.5 - 51.1 %) 10.2 L Monocytes % (1.7 - 9.3 %) 8.4 Eosinophils % (0 - 5 %) 0.1 Basophils % (0.0 - 2.0 %) 0.1 Absolute Granulocytes (1.4 - 6.5 /CUMM) 11.5 H Absolute Lymphocytes (1.2 - 3.4 /CUMM) 1.4 Absolute Monocytes (0.10 - 0.60 /CUMM) 1.2 H Absolute Eosinophils (0.0 - 0.7 /CUMM) 0 Absolute Basophils (0.0 - 0.2 /CUMM) 0 Immunology Complement C3 Pending Complement C4 Pending Miscellaneous Ref Lab Test Result Pending Ref Lab Test Result Pending 08/06 07 Immunology ARIES Titer ND Anti-Nuclear Antibody (NEG,1:40) NEG 1:40 IFA ASSAY Miscellaneous Ref Lab Test Result Pending Ref Lab Test Result (()) REPORT 08/06 0000 1940 Chemistry Sodium (137 - 145 mmol/L) 137 137 Potassium (3.5 - 5.1 mmol/L) 5.3 H 5.5 H Chloride (98 - 107 mmol/L) 109 H 109 H Carbon Dioxide (22 - 30 mmol/L) 17 L 15 L Anion Gap (5 - 16) 11 13 BUN (9 - 20 mg/dL) 50 H 46 H Creatinine (0.7 - 1.2 mg/dL) 6.9 *H 6.4 *H Estimated GFR (>60 ml/min) 9 L 10 L BUN/Creatinine Ratio (7 - 25 %) 7.2 7.2 Hematology CBC w Diff NO MAN DIFF REQ WBC (4.8 - 10.8 /CUMM) 11.1 H RBC (4.70 - 6.10 /CUMM) 3.82 L Hgb (14.0 - 18.0 G/DL) 12.0 L Hct (42 - 52 %) 35.3 L MCV (80.0 - 94.0 FL) 92.5 MCH (27.0 - 31.0 PG) 31.3 H MCHC (33.0 - 37.0 G/DL) 33.8 RDW (11.5 - 14.5 %) 13.9 Plt Count (130 - 400 /CUMM) 187 MPV (7.4 - 10.4 FL) 8.3 Gran % (42.2 - 75.2 %) 86.1 H Lymphocytes % (20.5 - 51.1 %) 6.6 L Monocytes % (1.7 - 9.3 %) 7.3 Eosinophils % (0 - 5 %) 0 Basophils % (0.0 - 2.0 %) 0 Absolute Granulocytes (1.4 - 6.5 /CUMM) 9.6 H Absolute Lymphocytes (1.2 - 3.4 /CUMM) 0.7 L Absolute Monocytes (0.10 - 0.60 /CUMM) 0.8 H Absolute Eosinophils (0.0 - 0.7 /CUMM) 0 Absolute Basophils (0.0 - 0.2 /CUMM) 0 Immunology ANCA Pending Miscellaneous Ref Lab Test Result (()) REPORT Urines Urine Total Volume (600 - 1500 ML/24HR) 1100 Ur Total Protein 24 Hr (42 - 255 mg/24HR) 583.0 H 05/27 05/27 05/27 1820 1610 1610 Chemistry Sodium (137 - 145 mmol/L) 135 L Potassium (3.5 - 5.1 mmol/L) 5.5 H Chloride (98 - 107 mmol/L) 108 H Carbon Dioxide (22 - 30 mmol/L) 14 L Anion Gap (5 - 16) 13 BUN (9 - 20 mg/dL) 44 H Creatinine (0.7 - 1.2 mg/dL) 5.5 *H Estimated GFR (>60 ml/min) 11 L BUN/Creatinine Ratio (7 - 25 %) 8.0 Urines Urine Color (YEL,AMB,STR) YEL Urine Clarity (CLEAR) HAZY H Urine pH (5.0 - 8.0) 6.5 Ur Specific [place] (1.001 - 1.035) 1.010 Urine Protein (NEG,<30 MG/DL) 100 H Urine Ketones (NEG) NEG Urine Nitrite (NEG) NEG Urine Bilirubin (NEG) NEG Urine Urobilinogen (0.1 - 1.0 EU/dl) 0.2 Ur Leukocyte Esterase (NEG) NEG Ur Microscopic SEDIMENT EXAMINED Urine RBC (0 - 5 /HPF) 1-3 Urine WBC (0 - 2 /HPF) 1-3 H Ur Epithelial Cells (NONE,FEW) FEW Urine Hemoglobin (NEG) LARGE H Ur Random Creatinine (mg/dL) 26.7 Ur Random Sodium (30 - 90 mmol/L) 42 Ur Random Potassium (mmol/L) 3.2 Fraction Sodium Excret (<1% %) 4.6 H Urine Glucose (N MG/DL) NEG
--- NOTE | 2017-08-08 20:10 | Patient Discharge Instructions ---
Discharge Instructions General Discharge Information You were seen/treated for: Acute onset of difficulty in breathing, possible anaphylaxis complicated by acute interstitial nephritis, possibly need dialysis in future. Special Instructions: We are discharging her to higher facility,[facility]. You may need dialysis and further evaluation including kidney biopsy for further evaluation of kidney problem. Diet Recommended Diet: Renal Dialysis Acute Coronary Syndrome Inclusion Criteria At DC or during hospital stay patient has or had the following: ACS DIAGNOSIS No Discharge Core Measures Meds if any: Prescribed or Continued at Discharge Meds if any: NOT Prescribed or Continued at Discharge Congestive Heart Failure Inclusion Criteria At DC or during hospital stay patient has or had the following: CHF DIAGNOSIS No Discharge Core Measures Meds if any: Prescribed or Continued at Discharge Meds if any: NOT Prescribed or Continued at Discharge Cerebrovascular accident Inclusion Criteria At DC or during hospital stay patient has or had the following: CVA/TIA Diagnosis No Discharge Core Measures Meds if any: Prescribed or Continued at Discharge Meds if any: NOT Prescribed or Continued at Discharge Venous thromboembolism Inclusion Criteria VTE Diagnosis No Discharge Core Measures - Per Current guidelines, there needs to be overlap - treatment for the first 5 days of Warfarin therapy. - If discharged on Warfarin prior to 5 days of - overlap therapy, the patient will need to be - assessed for post discharge needs including - *Post discharge parental anticoagulation - *Warfarin and/or parental anticoagulation education - *Follow up date to check INR post discharge Meds if any: Prescribed or Continued at Discharge Note: Overlap Therapy is Warfarin and Anticoagulant Meds if any: NOT Prescribed or Continued at Discharge
[2017-08-08 20:18] VITALS: BP 132/80
--- NOTE | 2017-08-08 20:32 | Discharge Summary ---
Visit Information Visit Dates Admission Date: 08/04/17 Discharge Date: 08/08/2017 Hospital Course Course Attending Physician: Garrison Felton MD Primary Care Physician: Garrison Felton MD Hospital Course: The patient is a 41-year-old male with past medical history most significant for baseline normal kidney function with a creatinine 0.9, obesity status post gastric bypass, anemia as result of vitamin deficiencies from his surgery on supplementation, six-month history of diabetes preceding his surgery now, recovered, who presents with allergic reaction after ingesting a medicine. The patient was in his usual state of health until 08/03/2017, when he ingested a couple of Advil PM pills which had gone through a washer/dryer cycle while in an individual package. He subsequently developed chest tightness, wheezing, hives.He Called poison control who recommended taking Benadryl. He says, he came to the emergency room. In the ER, he was given albuterol nebulizers, Benadryl, Pepcid 125 mg of Solu- Medrol, Zofran. He was made nothing by mouth and started on intravenous fluids. Lab work notable for white count 12.0 without significant eosinophilia.Serum osmolarity was also not elevated (concern for propylene glycol in diswashing detergent although the pills were not wet) - and anion gap was normal. His baseline Creatinine was 0.9 and kept on risng to 9.0. CT imaging of abdoman and Pelvis with unremarkable kidneys (done without contrast).He had not had any episode of hypotension, had not had other nephrotoxic meds. He also had abnormal LFT abnormalities including a bilirubin of 4.2 and elevated AST which was under 100 and High amylase and lipase which were normalized, later. When he presented to the emergency room he urinated sarah blood which is a new for the pt, and never happened to him before. His prior UA done in 2010 was without any protein, and the patient has no h/o of any kidney disease. Subsequently he urinated [employer] colored urine which he has a picture of. The urinalysis was with large blood, greater than 300 protein, 1-3 WBC. He reports that later his urine got cleared. Nephrology consultation was obtained, and he was started on po prednisone 80 mg daily, for the treatment of possible AIN. Serum analysis for autoimmune workup was done, which is pending at this time. UA was negative for any drugs of abuse, serum acetaminophen level was less than 10, serum salicylate level was less than 1. His ARIES was negative, ANCA/C3/C4 is pending. His hepatitis panel was negative. Urine total protein was 583, fractional excretion of sodium 4.6. Patient developed non-anion gap metabolic acidosis secondary to renal failure, so normal saline was discontinued and started on sodium bicarb 1300 mg twice daily. It was a thought that patient might need renal biopsy for further diagnosis but not done because, the thought was that it wouldnt change the management. As patient continued to showed rising trend in serum creatinine without any uremic symptoms and volume overload along with metabolic acidosis, hyperphosphatemia and anemia; it was a thought that he may need dialysis in the near future so we placed tunneled dialysis catheter on 08/08/2017 and tentatively scheduled for renal biopsy on Sunday. We started patient on Savelamer 800 mg 3 times a day. On the request of patient and after discussion with Dr. Felton it was decided that, he should be transferred to [facility], to Dr Gómez. Discussed the risks and benefits of transferring to a higher level of care. IMMEDIATE ISSUES 1. Acute kidney injury likely secondary to acute tubular necrosis or acute interstitial nephritis -nonoliguric but with rising serum creatinine; no significant uremic symptoms or volume overload as yet, no sig hyperkalemia 2. Metabolic acidosis, primarily non-anion gap, on oral sodium bicarb 3. Hyperphosphatemia 4. Anemia, relatively mild, no need for an SILVIANO at this time S/p tunnelled cath for dialysis if needed in am to cont all meds May need renal biopsy soon Allergies: Coded Allergies: NSAIDS (Non-Steroidal Anti-Inflamma (R/T GASTYRIC BYPASS SX 07/23/15) cefaclor (From [facility]CL[facility]) (ANAPHYLAXIS 07/23/15) Pertinent Lab Results: CAT - CT ABD & PELVIS W/O IV CONTRAS 08/04/17-[address] scan abdomen and pelvis. --- US - FLUORO GUID VENOUS ACCESS 08/08/171511 by Karolina Yepez MD 1. Real-time ultrasound-guided access into the right internal jugular vein after documentation of selected vessel patency, and permanent imaging storing in the patient records. 2. Placement of a nontunneled 12-Fr 16 cm dual lumen central venous catheter. RAD - XRY-PORTABLE CHEST XRAY 08/04/17-214 Unremarkable examination. Disposition Summary Disposition Principal Diagnosis: Acute kidney injury likely secondary to acute tubular necrosis or acute interstitial nephritis with improving urine output but rising serum creatinine; fortunately, no significant uremic symptoms and no volume Metabolic acidosis, primarily non-anion gap, on oral sodium bicarb Hyperphosphatemia Anemia, Additional Diagnosis: Gastric bypass surgery in 2003 Cholecystectomy History of umbilical hernia repair History of type 2 diabetes recovered after bypass surgery Discharge Disposition: other general hospital Discharge Instructions General Discharge Information Code Status: Full Code Patient's Diet: Renal dialysis diet Patient's Activity: As tolerated Follow-Up Instructions/Appts: We transferred the patient to the [facility] facility [facility], for further evaluation and management AIN. Medications at Discharge Discharge Medications: Continue taking these medications: Acetaminophen (Tylenol Extra Strength) 500 MG TABLET 2 Tablet ORAL EVERY 8 HOURS as needed for PAIN Comments: NOT GIVEN IN HOSPITAL Omeprazole (Omeprazole) 40 MG CAPSULE. 1 Capsule ORAL DAILY Qty = 30 Comments: GIVEN PROTONIX LAST 08/08/17 8:50 AM Ferrous Sulfate (IRON) 325 MG (65 MG IRON) TABLET 1 Tablet ORAL TWICE DAILY Comments: NOT GIVEN IN HOSPITAL Calcium Citrate (Calcium Citrate) (Unknown Strength) TABLET Unknown Dose ORAL DAILY Comments: NOT GIVEN IN HOSPITAL Docusate Sodium (Colace) 100 MG CAPSULE 1 Capsule ORAL DAILY Comments: Last Taken: 08/08/17 Time: 8:50 AM Start taking the following new medications: Prednisone (Prednisone) 20 MG TABLET 80 Milligram ORAL DAILY Days = 7 No Refills Comments: Last Taken: 08/08/17 Time: 8:50 AM Lactulose (Lactulose) 20 GRAM/30 ML SOLUTION 30 Gram ORAL TWICE DAILY as needed for constipation Qty = 30 No Refills Comments: NOT GIVEN IN HOSPITAL Lidocaine (Lidoderm) 5 % ADH..PATCH 1 Patch On the skin Q24H Qty = 30 No Refills Comments: Last Taken: 08/07/17 Time: 8:30 PM Sevelamer Carbonate (Renvela) 800 MG TABLET 800 Milligram ORAL THREE TIMES DAILY Qty = 30 No Refills Comments: Last Taken: 08/08/17 Time: 4:15 PM Sodium Bicarbonate (Sodium Bicarbonate) 325 MG TABLET 1,300 Milligram ORAL TWICE DAILY Qty = 30 No Refills Comments: Last Taken: 08/08/17 Time: 8:50 AM Epinephrine (Epipen 2-Jax) 0.3 MG/0.3 ML AUTO.INJCT 1 Inj INTRAMUSC X1 as needed for SEVERE ALLERGIC REACTION Qty = 1 No Refills Instructions: AND CALL 911 Copies To: Oscar CHESTER,Martinez Godfrey; Serafin CHESTER,Keny Moreland Attending MD Review Statement Documenting Attending: Jose Francisco CHESTER,Garrison Jeffrey
[2017-08-08] MEDS ORDERED: PREDNISONE20 M1 PO (20:37)
[2017-08-08] MEDS ORDERED: LIDODERM1 EACH TOP (20:40)
[2017-08-08] MEDS ORDERED: LACTULOSE20 GM/30 M PO (20:40)
[2017-08-08] MEDS ORDERED: SODIUM BICARBO325 M1 PO (20:43)
[2017-08-08] MEDS ORDERED: RENVELA800 M1 PO (20:43)
== END 2017-08-08 21:33 | disposition short-term general hospital (02) | DRG 683 ==
LOC: ERH 02:00 → EDBEDREQ 12:05 → ENRESERV 12:25 → ERHI 12:26 → 2NA 12:26 → ENTRNSPT 13:22 → EDTRNSPT 13:26 → EDTRNSPTSTS 13:26 → 2NA 13:39 → CMPTRNSPT 13:46 → 2NA 08-05 09:59
PROVIDERS: Internal Medicine Adolescent Medicine; Pediatrics; Student in an Organized Health Care Education/Training Program
PROC: 02H633Z Insertion of Infusion Device into Right Atrium, Percutaneous Approach (ICD-10-PCS; principal; 2017-08-08)
DX: N17.9 Acute kidney failure, unspecified (principal); E87.1 Hypo-osmolality and hyponatremia; E87.2 Acidosis; Z68.41 Body mass index [BMI] 40.0-44.9, adult; E66.01 Morbid (severe) obesity due to excess calories; E87.5 Hyperkalemia; E83.39 Other disorders of phosphorus metabolism; D53.8 Other specified nutritional anemias; M54.9 Dorsalgia, unspecified; L50.9 Urticaria, unspecified; G89.29 Other chronic pain; F17.200 Nicotine dependence, unspecified, uncomplicated; Z90.49 Acquired absence of other specified parts of digestive tract; Z98.84 Bariatric surgery status; Z88.8 Allergy status to other drugs, medicaments and biological substances
CPT/HCPCS: 04007; 2NAP; 2NASP; 84133; 84300; 86021; 86160; 36415; 36592; 71045; 74176; 77001; 80307; 81001; 82436; 82570; 87086; 93005; 93010; 96361; 96374; 96375; 96376; C1752; C1769; G0480; J0131; J0610; J1200; J1644; J1650; J1815; J2001; J2405; J2930